=== PATIENT | male | born 1930 | race Caucasian/White ===

== ENCOUNTER 2016-11-26 15:39 | Emergency (ER) | payer MEDICARE, BC ==
[2016-11-26 16:48] LABS: APPEARANCE CLEAR (CLEAR); BILIRUBIN NEGATIVE (NEGATIVE); COLOR YELLOW (YELLOW); GLUCOSE NEGATIVE (NEGATIVE); KETONE NEGATIVE (NEGATIVE); LEUKOCYTE ESTERASE TRACE (NEGATIVE); NITRITE NEGATIVE (NEGATIVE); PROTEIN NEGATIVE (NEGATIVE); SPECIFIC GRAVITY 1.015 (1.005-1.020); UROBILINOGEN NORMAL (NORMAL)
[2016-11-26 16:49] LABS: BACTERIA FEW /hpf (NONE SEEN); EPITHELIAL CELLS 0-5 /hpf (0-5); MUCUS <1+ /lpf (NONE SEEN); WHITE CELLS - URINE 0-5 /hpf (0-5)
[2016-11-26 17:22] LABS: ALBUMIN 3.9 g/dL (3.4-5.0); ANION GAP 8.8 mmol/L (8-16); BILIRUBIN - TOTAL 0.47 mg/dL (0.2-1.3); CALCIUM 10.5 mg/dL (8.5-10.1); CARBON DIOXIDE 31.2 mmol/L (21.0-32.0); CREATININE - SERUM 1.1 mg/dL (0.6-1.3); PROTEIN - SERUM 7.2 g/dL (6.4-8.2)
[2016-11-26 21:16] LABS: APTT 56.8 SECONDS (22.8-39.4); INR 3.13 (0.85-1.17); PROTIME 32.5 SECONDS (11.6-15.0)
[2016-12-10 20:42] VITALS: BMI 23.1
== END 2016-11-26 21:31 | disposition home or self-care (01) ==
LOC: D.ER 15:39
PROVIDERS: Emergency Medicine; Physician Assistant Medical
DX: R60.0 Localized edema (principal); I48.91 Unspecified atrial fibrillation; I10 Essential (primary) hypertension; E78.5 Hyperlipidemia, unspecified

== ENCOUNTER 2016-12-10 12:35 | Inpatient (IN) | payer MEDICARE, BC ==
[~2016-12-10] VITALS: Ht 182.9 cm; Wt 77.3 kg
[2016-12-10 14:08] LABS: INR 3.34 (0.85-1.17); PROTIME 34.2 SECONDS (11.6-15.0)
--- NOTE | 2016-12-10 14:15 | NUR ---
ASSESSMENT PER FLOW SHEET.IV SITED TO LEFT FOREARM X1 STICK USING ASEPTIC TECH,20G. ORIENTATION TO ROOM.CALL LIGHT IN REACH
[2016-12-10] MEDS ORDERED: CELEXA20 MG PO (14:42)
[2016-12-10] MEDS ORDERED: METOPROLOL TART50 MG PO (14:42)
[2016-12-10] MEDS ORDERED: COUMADIN3 MG PO (14:44)
[2016-12-10] MEDS ORDERED: MYSOLINE250 MG PO (14:44)
[2016-12-10] MEDS ORDERED: ACCUPRIL40 MG PO (14:44)
[2016-12-10] MEDS ORDERED: HYDROCHLOROTHIA25 MG PO (14:45)
[2016-12-10] MEDS ORDERED: ADVIL200 MG PO (14:46)
[2016-12-10] MEDS ORDERED: ZOCOR80 MG (14:46)
[2016-12-10 16:58] VITALS: BP 146/73
--- NOTE | 2016-12-10 18:00 | NUR ---
REMAINS WITHOUT NEEDS,WITHOUT DISTRESS.CALL LIGHT IN REACH
--- NOTE | 2016-12-10 19:50 | NUR ---
PATIENT IN SEMI-FOWLERS POSITION WITH DAUGHTER AT BEDSIDE. PATIENT STATED HE DOES NOT NEED ANYTHING AT THIS TIME.
[2016-12-10 20:42] VITALS: BP 146/73; Ht 182.9 cm; Wt 77.3 kg
[2016-12-10 21:00] VITALS: BP 167/90
[2016-12-11 01:00] VITALS: BP 166/89
[2016-12-11 05:00] VITALS: BP 165/100
[2016-12-11 06:43] LABS: BASOPHILS 0.3 % (0.0-2.0); EOSINOPHILS 4.3 % (0-7); HEMATOCRIT 40.6 % (42.0-54.0); HEMOGLOBIN 13.7 g/dL (13.5-17.5); IMMATURE GRANULOCYTES 0.3 % (0-5); LYMPHOCYTES 17.2 % (15-50); MCH 32.2 pg (26.0-34.0); MCHC 33.7 g/dL (31.0-37.0); MCV 95.3 fL (80.0-100.0); MEAN PLATELET VOLUME 10.6 fL (7.4-10.4); MONOCYTES 7.7 % (2-11); NEUTROPHILS 70.2 % (40-80); PLATELET COUNT 205 10x3/uL (130-400); RBC 4.26 10x6/uL (4.20-6.10); RDW 13.2 % (11.5-14.5); WBC 7.5 10x3/uL (4.8-10.8)
[2016-12-11 06:57] LABS: INR 2.46 (0.85-1.17); PROTIME 26.8 SECONDS (11.6-15.0)
[2016-12-11 07:10] LABS: ANION GAP 11.6 mmol/L (8-16); CALCIUM 10.5 mg/dL (8.5-10.1); CARBON DIOXIDE 28.2 mmol/L (21.0-32.0); CREATININE - SERUM 1.1 mg/dL (0.6-1.3); POTASSIUM - SERUM 3.8 mmol/L (3.5-5.1)
--- NOTE | 2016-12-11 07:42 | NUR ---
PT ASSESSMENT COMPLETE AWAKE AND ALERT ORINETED X 3 LUNGS CLEAR BILATERAL. HRRR BSA X 4 QUADS ABD SOFT AND NON TENDER TO PALPATION MOVES ALL EXTREMITES TO COMMAND HAS HIRAL HOSE NOTED TO BILATERAL LOWER EXTREMITES. 3+ EDEMA NOTED TO LEFT ANKLE WITH CELLULITIS NOTED LEFT PIV NOTED TO FORARM 20 GA PATENT TO NS AT KVO RATE. WILL MONITOR.
[2016-12-11 08:43] VITALS: BP 169/102
--- NOTE | 2016-12-11 09:23 | NUR ---
Patient Name: ANGELES VASQUEZ Admission Status: Elective Accout number: [id number] Admission Date: 12-10-2016 : 1930 Admission Diagnosis: Attending: DANIELLE Current LOS: 1 Anticipated DC Date: 12-12-2016 Planned Disposition: Home or Self Care Primary Insurance: MEDICARE A & B Discharge Planning Comments: CM MET WITH PATIENT REGARDING D/C NEEDS AND PLANS. PATIENT STATES HIS DAUGHTER (HAMZAH) AND GRANDSON LIVE WITH HIM AND HIS (PRESTON). PATIENTS HAS DEMENTIA AND DAUGHTER HELPS WITH HER. PATIENT STATES THERE ARE 4 STEPS W/O RAILS TO ENTER HOME AND NO STAIRS INSIDE. PATIENT IS INDEPENDENT WITH HIS CARE AND HAS A CANE AND WALKER. PATIENTS PCP IS DR. LORENZO AND USES [facility]. PATIENT DENIES NEEDS FOR HOME HEALTH AT THIS TIME. CM WILL CONTINUE TO FOLLOW PATIENT WITH D/C NEEDS AND PLANS. PCP DR. LORENZO [facility] HAMZAH GUTIERREZ (DAUGHTER) [phone] Oyster Culler: Thi Dsouza Is the patient Alert and Oriented? Yes 0 * How many steps to enter\exit or inside your home? 4 NO RAILS 0 * PCP DR. LORENZO 0 * Pharmacy [facility] 0 * Preadmission Environment Home with Family 0 * ADLs Independent 0 * Equipment Cane Walker 0 * List name and contact numbers for known caregivers / representatives who currently or will assist patient after discharge: HAMZAH GUTIERREZ [phone] * Community resources currently utilized None 0 * Additional services required to return to the preadmission environment? Yes 0 * Can the patient safely return to the preadmission environment? Yes 0 * Has this patient been hospitalized within the prior 30 days at any hospital? No 0 Grand Total: 0
--- NOTE | 2016-12-11 12:40 | NUR ---
PATIENT ALERT IN MID [place] POSITION READING NEWSPAPER. NO SIGNS OF DISTRESS NOTED. SIDE RAILS UP X2. BED IN LOW POSITION. CALL LIGHT IN REACH.
[2016-12-11 13:36] VITALS: BP 157/90
--- NOTE | 2016-12-11 13:54 | NUR ---
NO ACUTE DISTRESS NOTED VOICES ALL NEEDS TO STAFF HIRAL HOSE IN PLACE
[2016-12-11 15:59] VITALS: BP 160/78
[2016-12-11 19:00] VITALS: BP 166/77
--- NOTE | 2016-12-11 19:50 | NUR ---
PATIENT IN SEMI-FOWERLS POSITION. DAUGHTER AT BEDSIDE. PATIENT STATED HE DOES NOT NEED ANYTHING AT THIS TIME.
[2016-12-12 04:00] VITALS: BP 145/86
[2016-12-12 05:14] LABS: BASOPHILS 0.4 % (0.0-2.0); EOSINOPHILS 4.6 % (0-7); HEMATOCRIT 36.4 % (42.0-54.0); HEMOGLOBIN 12.3 g/dL (13.5-17.5); IMMATURE GRANULOCYTES 0.2 % (0-5); LYMPHOCYTES 18.6 % (15-50); MCH 32.2 pg (26.0-34.0); MCHC 33.8 g/dL (31.0-37.0); MCV 95.3 fL (80.0-100.0); MONOCYTES 10.9 % (2-11); NEUTROPHILS 65.3 % (40-80); PLATELET COUNT 176 10x3/uL (130-400); RBC 3.82 10x6/uL (4.20-6.10); RDW 13.3 % (11.5-14.5); WBC 8.1 10x3/uL (4.8-10.8)
[2016-12-12 05:29] LABS: PROTIME 21.7 SECONDS (11.6-15.0)
[2016-12-12 05:31] LABS: INR 1.89 (0.85-1.17)
[2016-12-12 05:34] LABS: ANION GAP 11.9 mmol/L (8-16); CALCIUM 9.7 mg/dL (8.5-10.1); CARBON DIOXIDE 26.7 mmol/L (21.0-32.0); CREATININE - SERUM 1.1 mg/dL (0.6-1.3); POTASSIUM - SERUM 3.6 mmol/L (3.5-5.1)
[2016-12-12 08:24] VITALS: BP 123/87
[2016-12-12 12:43] VITALS: BP 138/85
[2016-12-12] MEDS ORDERED: COUMADIN3 MG PO (15:37)
[2016-12-12 19:00] VITALS: BP 177/90
--- NOTE | 2016-12-12 21:00 | NUR ---
AWAKE,ALERT,ORIENTED.SKIN WARM DRY RESP EVENA DN UNLAOBRED. ABD SOFT NONDISTENDED WITH BOWEL SOUNDS PRESENT.EDEMA NOTED TO LEFT ANKLE. HIRAL HOSE ON.REMOVED FOR SKIN ASSESSMENT. NO OPEN AREAS NOTED. PIV TO LEFT FOREARM IN TACT WIHT NO REDNESS OR EDEMA NOTED.
--- NOTE | 2016-12-13 02:10 | NUR ---
EYES CLOSED RESP EVEN AND UNLABORED.CL IN REACH.
[2016-12-13 04:00] VITALS: BP 163/86
[2016-12-13 05:28] LABS: BASOPHILS 0.4 % (0.0-2.0); EOSINOPHILS 5.5 % (0-7); HEMATOCRIT 37.1 % (42.0-54.0); HEMOGLOBIN 12.7 g/dL (13.5-17.5); IMMATURE GRANULOCYTES 0.1 % (0-5); LYMPHOCYTES 23.1 % (15-50); MCH 32.2 pg (26.0-34.0); MCHC 34.2 g/dL (31.0-37.0); MCV 93.9 fL (80.0-100.0); MEAN PLATELET VOLUME 10.8 fL (7.4-10.4); MONOCYTES 10.1 % (2-11); NEUTROPHILS 60.8 % (40-80); PLATELET COUNT 190 10x3/uL (130-400); RBC 3.95 10x6/uL (4.20-6.10); RDW 13.2 % (11.5-14.5); WBC 7.3 10x3/uL (4.8-10.8)
--- NOTE | 2016-12-13 05:45 | NUR ---
EYES CLOSED RESPIRATIONS WITH EASE AND UNLABORED. SR UP X2 CALL LIGHT WITHIN REACH.
[2016-12-13 05:59] LABS: PROTIME 17.8 SECONDS (11.6-15.0)
[2016-12-13 06:01] LABS: ANION GAP 10.4 mmol/L (8-16); CALCIUM 9.8 mg/dL (8.5-10.1); CARBON DIOXIDE 27.8 mmol/L (21.0-32.0); CREATININE - SERUM 1.2 mg/dL (0.6-1.3); INR 1.47 (0.85-1.17); POTASSIUM - SERUM 3.2 mmol/L (3.5-5.1)
--- NOTE | 2016-12-13 06:39 | NUR ---
NO CHANGE IN ASSESSMENT. CL IN REACH.
--- NOTE | 2016-12-13 07:00 | NUR ---
REPORT RECIEVED ASSUMED CARE. PATIENT IN BED WITH IV INTACT. NO COMPLAINTS. CALL LIGHT WITHIN REACH.
[2016-12-13 08:08] VITALS: BP 173/92
[2016-12-13 12:31] VITALS: BP 150/70
[2016-12-13 16:00] VITALS: BP 152/79
--- NOTE | 2016-12-13 17:45 | NUR ---
SPOKE WITH PASCUAL HORNER, DR. SCHUMACHER NURSE ABOUT PATIENT TAKING LOMOTIL FOR DIARRHEA. VERBALIZED UNDERSTANIND. CALL LIGHT WITHIN REACH.
--- NOTE | 2016-12-13 18:37 | NUR ---
PATIENT IN BED WITH IV INTACT. NO COMPLAINTS AT THIS TIME. CALL LIGHT WITHIN REACH.
--- NOTE | 2016-12-13 21:00 | NUR ---
AWAKE NO COMPLAINTS. IV INFUSING RO LEFT ARM WITHOUT REDNESS OR EDEMA. CL IN REACH.
--- NOTE | 2016-12-14 02:30 | NUR ---
EYES CLOSED RESP EVEN AND UNALBORED. NO DISTRESS NOTED. CL IN REACH.
--- NOTE | 2016-12-14 03:30 | NUR ---
PT RESTING QUIETLY, EYES CLOSED. RESP UNLABORED. NO DISTRESS NOTED. WILL CONTINUE TO MONITOR.
--- NOTE | 2016-12-14 05:30 | NUR ---
NO CHANGE IN ASSESSMENT. CL IN REACH.
[2016-12-14 06:45] LABS: BASOPHILS 0.4 % (0.0-2.0); EOSINOPHILS 6.1 % (0-7); HEMATOCRIT 38.9 % (42.0-54.0); HEMOGLOBIN 13.2 g/dL (13.5-17.5); IMMATURE GRANULOCYTES 0.3 % (0-5); LYMPHOCYTES 21.5 % (15-50); MCHC 33.9 g/dL (31.0-37.0); MCV 94.2 fL (80.0-100.0); MEAN PLATELET VOLUME 10.6 fL (7.4-10.4); MONOCYTES 8.4 % (2-11); NEUTROPHILS 63.3 % (40-80); PLATELET COUNT 211 10x3/uL (130-400); RBC 4.13 10x6/uL (4.20-6.10); RDW 13.2 % (11.5-14.5); WBC 7.6 10x3/uL (4.8-10.8)
[2016-12-14 07:09] LABS: INR 1.38 (0.85-1.17); PROTIME 16.9 SECONDS (11.6-15.0)
[2016-12-14 07:24] LABS: CALCIUM 10.3 mg/dL (8.5-10.1); CARBON DIOXIDE 26.3 mmol/L (21.0-32.0); CREATININE - SERUM 1.2 mg/dL (0.6-1.3); POTASSIUM - SERUM 3.3 mmol/L (3.5-5.1)
--- NOTE | 2016-12-14 07:50 | NUR ---
REPORT RECIEVED ASSUMED CARE. PATIENT IN BED WITH IV INTACT. NO COMPLAINTS. CALL LIGHT WITHIN REACH.
[2016-12-14 08:04] VITALS: BP 179/88
[2016-12-14 12:35] VITALS: BP 165/84
[2016-12-14 15:53] VITALS: BP 135/77
--- NOTE | 2016-12-14 18:55 | NUR ---
PATIENT IN BED WITH NO COMPLAINTS. IV INTACT. CALL LIGHT WITHIN REACH.
--- NOTE | 2016-12-14 19:55 | NUR ---
PATIENT IN SEMI-FOWLERS POSITION. PATIENT STATED HE DOES NOT NEED ANYTHING AT THIS TIME.
[2016-12-14 20:20] VITALS: BP 125/67
[2016-12-15 00:36] VITALS: BP 153/93
[2016-12-15 04:34] VITALS: BP 169/98
[2016-12-15 05:48] LABS: BASOPHILS 0.5 % (0.0-2.0); EOSINOPHILS 7.5 % (0-7); HEMATOCRIT 37.3 % (42.0-54.0); HEMOGLOBIN 12.4 g/dL (13.5-17.5); IMMATURE GRANULOCYTES 0.3 % (0-5); LYMPHOCYTES 28.4 % (15-50); MCH 31.6 pg (26.0-34.0); MCHC 33.2 g/dL (31.0-37.0); MCV 94.9 fL (80.0-100.0); MEAN PLATELET VOLUME 10.6 fL (7.4-10.4); NEUTROPHILS 52.3 % (40-80); PLATELET COUNT 200 10x3/uL (130-400); RBC 3.93 10x6/uL (4.20-6.10); RDW 13.4 % (11.5-14.5); WBC 6.1 10x3/uL (4.8-10.8)
[2016-12-15 06:01] LABS: INR 1.44 (0.85-1.17); PROTIME 17.4 SECONDS (11.6-15.0)
[2016-12-15 06:13] LABS: ANION GAP 10.8 mmol/L (8-16); CALCIUM 10.1 mg/dL (8.5-10.1); CARBON DIOXIDE 28.6 mmol/L (21.0-32.0); CREATININE - SERUM 1.3 mg/dL (0.6-1.3); POTASSIUM - SERUM 3.4 mmol/L (3.5-5.1)
--- NOTE | 2016-12-15 08:00 | NUR ---
PT ASSESSMENT COMPLETE AWAKE AND ALERT ORINETD X 3 LUNGS CLAER BILAT. EXPECTING TO BE DISCHARGED TODAY TO HOME PER SELF CARE NO ACUTE DISTRESS NOTED AMBULATES WELL INDEPENDANT STEADY GAIT NOTED IN ROOM. PIV PATENT TO NS PER ORDER.
--- NOTE | 2016-12-15 08:00 | NUR ---
PT WITHOUT NEEDS,WITHOUT DISTRESS.ISOLATIONMAINTAINED
[2016-12-15 09:30] VITALS: BP 146/83
[2016-12-15] MEDS ORDERED: CLEOCIN HCL300 MG PO (09:31)
--- NOTE | 2016-12-15 11:33 | NUR ---
TOO AM MEDS WITH NO DIFFICULTY NOTED. DISCHARGE ORDER IN FOR HOME CARE WILL DISCHARGE PER ORDER
[2016-12-15 12:42] VITALS: BP 148/86
--- NOTE | 2016-12-15 13:30 | NUR ---
GIVEN DISCHARGE INSTRUCTIONS STATED UNDERSTANDING AND REPEATED INSTRUCTION BACK PT IV D/C TIP INTACT
--- NOTE | 2016-12-15 14:56 | NUR ---
PT DISCHARGED PER WHEELCHAIR WITH DAUGHTER AT THIS TIME.
== END 2016-12-15 14:57 | disposition home or self-care (01) | DRG 603 ==
LOC: D.MS 12:35 → D.SDCHOLD 15:35 → D.MS 15:35
PROVIDERS: ADMIT Family Medicine
DX: L03.116 Cellulitis of left lower limb (principal); I10 Essential (primary) hypertension; I48.91 Unspecified atrial fibrillation

== ENCOUNTER 2018-06-18 11:00 | Emergency (ER) | payer MEDICARE, BC ==
[2016-12-10 20:42] VITALS: Ht 185.4 cm; Wt 66.4 kg
[~2018-06-18] VITALS: Ht 185.4 cm; Wt 66.4 kg
[~2018-06-18 11:00] MED LIST: ACCUPRIL40 MG PO; ADVIL200 MG PO; CELEXA20 MG PO; CLEOCIN HCL300 MG PO; COUMADIN3 MG PO; HYDROCHLOROTHIA25 MG PO; METOPROLOL TART50 MG PO; MYSOLINE250 MG PO; ZOCOR80 MG
[2018-06-18 11:43] LABS: BASOPHILS 0.2 % (0-2); EOSINOPHILS 2.5 % (0-7); HEMATOCRIT 40.4 % (42.0-54.0); HEMOGLOBIN 13.8 g/dL (13.5-17.5); IMMATURE GRANULOCYTES 0.2 % (0-5); LYMPHOCYTES 19.8 % (15-50); MCH 32.9 pg (26.0-34.0); MCHC 34.2 g/dL (31.0-37.0); MCV 96.4 fL (80.0-100.0); MEAN PLATELET VOLUME 10.9 fL (7.4-10.4); NEUTROPHILS 71.3 % (40-80); PLATELET COUNT 150 10x3/uL (130-400); RBC 4.19 10x6/uL (4.20-6.10); RDW 13.2 % (11.5-14.5); WBC 6.5 10x3/uL (4.8-10.8)
[2018-06-18 12:01] LABS: INR 2.2 (0.85-1.17); PROTIME 23.8 SECONDS (11.6-15.0)
[2018-06-18 12:02] LABS: APTT 36.1 SECONDS (22.8-39.4)
[2018-06-18 12:05] LABS: ALBUMIN 3.6 g/dL (3.4-5.0); ALKALINE PHOSPHATASE 104 U/L (46-116); ALT (SGPT) 27 U/L (10-68); BILIRUBIN - TOTAL 0.64 mg/dL (0.2-1.3); CALC OSMOLALITY 288 mosm/kg (275-300); CALCIUM 10.2 mg/dL (8.5-10.1); CARBON DIOXIDE 31.5 mmol/L (21.0-32.0); CHLORIDE - SERUM 107 mmol/L (98-107); CREATININE - SERUM 0.9 mg/dL (0.6-1.3); GLUCOSE 120 mg/dL (74-106); POTASSIUM - SERUM 3.9 mmol/L (3.5-5.1); SODIUM 142 mmol/L (136-145); UREA NITROGEN 26 mg/dL (7-18); eGFR NON AFRICAN AMERICAN 84 mL/min (90-120)
[2018-06-18 12:13] LABS: CKMB 2.3 U/L (0.0-3.6); CREATINE KINASE 75 UL (21-232); MAGNESIUM - SERUM 2.1 mg/dL (1.8-2.4); PRO BNP 2390 pg/mL (0-450)
[2018-06-18 12:19] LABS: TROPONIN-I < 0.017 ng/mL (0.000-0.060)
[2018-06-18 15:23] VITALS: BP 174/92
== END 2018-06-18 15:26 | disposition home or self-care (01) ==
LOC: D.ER 11:00
PROVIDERS: Family Medicine
DX: J81.1 Chronic pulmonary edema (principal); R06.02 Shortness of breath; I10 Essential (primary) hypertension; Z85.828 Personal history of other malignant neoplasm of skin

== ENCOUNTER → 2019-01-20 15:58 | Outpatient (CLI) | payer MEDICARE, BC ==
[2018-06-18 11:04] VITALS: BMI 19.3
== END | disposition home or self-care (01) ==
LOC: D.CT 15:30
PROVIDERS: ATTEND Family Medicine
DX: S00.93XA Contusion of unspecified part of head, initial encounter (principal); W18.30XA Fall on same level, unspecified, initial encounter; I48.91 Unspecified atrial fibrillation; Z79.01 Long term (current) use of anticoagulants; R41.0 Disorientation, unspecified

== ENCOUNTER → 2019-02-26 18:23 | Outpatient (CLI) | payer MEDICARE, BC ==
[2018-06-18 11:04] VITALS: BMI 19.3
[2019-02-26 20:03] LABS: CALC OSMOLALITY 289 mosm/kg (275-300); CALCIUM 9.6 mg/dL (8.5-10.1); CARBON DIOXIDE 25.8 mmol/L (21.0-32.0); CHLORIDE - SERUM 106 mmol/L (98-107); DIGOXIN 0.93 ng/mL (0.90-2.00); GLUCOSE 101 mg/dL (74-106); POTASSIUM - SERUM 4.4 mmol/L (3.5-5.1); SODIUM 139 mmol/L (136-145); T4 THYROXIN - FREE 0.99 ng/dL (0.76-1.46); THYROID STIMULATING HORMONE 3.66 uIU/mL (0.36-3.74); UREA NITROGEN 46 mg/dL (7-18); eGFR NON AFRICAN AMERICAN 75 mL/min (90-120)
== END | disposition home or self-care (01) ==
LOC: D.LABREF 18:23
PROVIDERS: ATTEND Family Medicine
DX: I48.91 Unspecified atrial fibrillation (principal); R29.6 Repeated falls; G25.0 Essential tremor; I10 Essential (primary) hypertension

== ENCOUNTER 2019-04-15 11:03 | Inpatient (IN) | payer MEDICARE, BC ==
[2019-04-15] VITALS (18 sets, daily range): BP systolic 125–178; BP diastolic 41–67; BMI 16.9
[~2019-04-15 11:03] MED LIST changes: +COUMADIN1 MG PO
[2019-04-15] MEDS ORDERED: VITAMIN B-121000 MCG PO (11:06)
[2019-04-15] MEDS ORDERED: LANOXIN125 MCG PO (11:07)
[2019-04-15] MEDS ORDERED: ACCUPRIL40 MG PO (11:08)
[2019-04-15 11:32] LABS: HEMATOCRIT 34.6 % (42.0-54.0); LYMPHOCYTES 20.5 % (15-50); MCHC 34.7 g/dL (31.0-37.0); MCV 95.1 fL (80.0-100.0); MEAN PLATELET VOLUME 10.9 fL (7.4-10.4); NEUTROPHILS 67.8 % (40-80); RBC 3.64 10x6/uL (4.20-6.10); RDW 14.5 % (11.5-14.5)
[2019-04-15 11:34] LABS: PLATELET COUNT 185 10x3/uL (130-400)
[2019-04-15 11:46] LABS: APTT 42.2 SECONDS (22.8-39.4); INR 2.8 (0.85-1.17); PROTIME 28.8 SECONDS (11.6-15.0)
[2019-04-15 11:55] LABS: ANION GAP 10.7 mmol/L (8-16); BILIRUBIN - TOTAL 0.34 mg/dL (0.2-1.3); CALCIUM 10.2 mg/dL (8.5-10.1); CARBON DIOXIDE 28.7 mmol/L (21.0-32.0); CREATININE - SERUM 1.1 mg/dL (0.6-1.3); POTASSIUM - SERUM 3.4 mmol/L (3.5-5.1); PROTEIN - SERUM 6.2 g/dL (6.4-8.2); THYROID STIMULATING HORMONE 4.44 uIU/mL (0.36-3.74); TROPONIN-I 0.032 ng/mL (0.000-0.060)
[2019-04-15 13:09] LABS: APPEARANCE CLEAR (CLEAR); BACTERIA FEW /hpf (NONE SEEN); BILIRUBIN NEGATIVE (NEGATIVE); COLOR YELLOW (YELLOW); EPITHELIAL CELLS 0-5 /hpf (0-5); GLUCOSE NEGATIVE (NEGATIVE); KETONE NEGATIVE (NEGATIVE); MUCUS <1+ /lpf (NONE SEEN); NITRITE NEGATIVE (NEGATIVE); PROTEIN NEGATIVE (NEGATIVE); RED CELLS - URINE OCC /hpf (0-5); SPECIFIC GRAVITY 1.025 (1.005-1.020); UROBILINOGEN NORMAL (NORMAL); WHITE CELLS - URINE RARE /hpf (0-5)
--- NOTE | 2019-04-15 14:59 | NUR ---
REC'D PT TO CV5. HR IRREGULAR AND BRADYCARDIA. HR 35, BP 152/75. PT WITH PERIODS OF APNEA. ABG'S DONE. ABG RESULTS WNL. PAGED DR ACEVEDO.
--- NOTE | 2019-04-15 17:49 | NUR ---
DR ACEVEDO DID ROUND. NO PM PLANNED. DIG AND SINGH HELD.
--- NOTE | 2019-04-15 18:32 | NUR ---
BED ALARM SOUNDING. PT ATTEMPTS TO GET OOB. PT STATES THAT HE NEEDS TO URINATE. TRANSFERED TO [facility] [place] [facility] PERSON ASST. PT INC OF URINE ON LINENS SM AMT. VOIDS 50CC. KCL RIDERS PER ORDERED ELECTROLYTE PROTOCOL USED.
--- NOTE | 2019-04-15 19:12 | NUR ---
patient arrived via [facility] secondary to c/o fall at approx 0200 this morning. pt presents with internal rotation of left foot and slight protrusion of left hip. Pt has had a left hip replacement. Pt was given morphine prior to arrival to ED. He is supported by 2L NC and is intermittantly tachypneic. He is able to report his name and - he denies pain but moans with manipulation. Daughter arrives to ED and is pt primary caregiver.
--- NOTE | 2019-04-15 20:30 | NUR ---
PT IS AWAKE AND ALERT. HE IS ALSO ARGUMENTATIVE AND WANTING TO GET OOB. HIS DAUGHTER IS AT BEDSIDE ARGUING WITH HIM. NURSE IS SUGGESTING THAT SHE GO HOME AND LET HIM REST.
--- NOTE | 2019-04-15 21:45 | NUR ---
PT IS RESTING QUIETLY. NO SIGN OF DISTRESS. HR CONTINUES TO DROP INTO LOW THIRTYS. HYPERTENSIVE.
--- NOTE | 2019-04-15 23:00 | NUR ---
REASSESSMENT COMPLETED PER FLOWSHEETS, PT RESTING AT THIS TIME. NO ACUTE CHANGES IN PT'S STATUS NOTED. HR CONT FELIZ TO 30 NOT SUSTAINED. NO NEEDS VOICES AT THIS TIME. CONT TO MONITOR.
[2019-04-16] VITALS (20 sets, daily range): BP systolic 109–179; BP diastolic 45–73; BMI 16.8
--- NOTE | 2019-04-16 03:15 | NUR ---
REASSESSMENT COMPLETEED PER FLOWSHEET. PT AWAKE,PULLED ALL MACHINERY MOVER LEADS OFF, TRYING TO GET OOB, PT INCONTINENT OF URINE. ARNOLDO CARE PROVIDED. SKIN CARE DONE. LINEN AND GOWN CHANGED. REPOSITIONED FOR COMFORT. HOB UP. SIDE RAILS UP. BED ALARM ON. CALL LIGHT IN REACH. CPOC.
[2019-04-16 04:07] LABS: BASOPHILS 0.3 % (0-2); EOSINOPHILS 4.1 % (0-7); HEMATOCRIT 35.6 % (42.0-54.0); HEMOGLOBIN 11.9 g/dL (13.5-17.5); IMMATURE GRANULOCYTES 0.3 % (0-5); MCH 31.5 pg (26.0-34.0); MCHC 33.4 g/dL (31.0-37.0); MCV 94.2 fL (80.0-100.0); MEAN PLATELET VOLUME 11.3 fL (7.4-10.4); MONOCYTES 10.1 % (2-11); NEUTROPHILS 62.2 % (40-80); PLATELET COUNT 167 10x3/uL (130-400); RBC 3.78 10x6/uL (4.20-6.10); RDW 14.4 % (11.5-14.5); WBC 6.5 10x3/uL (4.8-10.8)
[2019-04-16 04:16] LABS: INR 2.44 (0.85-1.17); PROTIME 25.8 SECONDS (11.6-15.0)
[2019-04-16 04:36] LABS: ALBUMIN 2.9 g/dL (3.4-5.0); ALKALINE PHOSPHATASE 82 U/L (46-116); ALT (SGPT) 19 U/L (10-68); BILIRUBIN - TOTAL 0.57 mg/dL (0.2-1.3); CALC OSMOLALITY 294 mosm/kg (275-300); CALCIUM 10.3 mg/dL (8.5-10.1); CHLORIDE - SERUM 109 mmol/L (98-107); GLUCOSE 100 mg/dL (74-106); PROTEIN - SERUM 6.3 g/dL (6.4-8.2); SODIUM 143 mmol/L (136-145); UREA NITROGEN 40 mg/dL (7-18)
[2019-04-16 04:37] LABS: CREATININE - SERUM 0.8 mg/dL (0.6-1.3); POTASSIUM - SERUM 4.4 mmol/L (3.5-5.1); eGFR NON AFRICAN AMERICAN > 90 mL/min (90-120)
--- NOTE | 2019-04-16 07:20 | NUR ---
SHIFT REPORT RECEIVED. PT ATTEMPTING TO GET OUT OF BED. ON ROOM AIR. HAS PIV ON L-FOREARM S.L. HR IRREGULAR. PULLED UP AND REPOSITIONED FOR COMFORT. WARM BLANKETS PROVIDED. ASSESSMENT COMPLETED. WILL CONTINUE TO MONITOR.
--- NOTE | 2019-04-16 09:20 | NUR ---
AM MEDS GIVEN WITHOUT COMPLICATIONS. ASSISTED PT WITH MEAL. ATE JELLO AND HAD MOST OF HIS BROTH. PULLED UP AND REPOSITIONED FOR COMFORT. WILL CONTINUE TO MONITOR.
--- NOTE | 2019-04-16 11:45 | NUR ---
RE-ASSESSMENT COMPLETED. PT MOVING AROUND IN BED. TRYING TO GET UP. CALM AND COOPERATIVE WITH NURSE. INCONTINENT EPISODE OF URINE. PERICARE AND PARTIAL LINEN CHANGE PROVIDED AT THIS TIME. PULLED UP AND REPOSITIONED FOR COMFORT. ATE ABOUT HALF OF JELLO AND HAS A FEW SIPS OF TEA AND BROTH. NO FURTHER NEEDS AT THIS TIME. WILL CONTINUE TO MONITOR.
--- NOTE | 2019-04-16 12:43 | NUR ---
REPORT RECIEVED, PT ALERT, CONFUSED, CONTINUALLY ATTEMPTING TO CLIMB OUT OF BED, ASSISTED TO CHAIR AND PORTABLE TEACHER [employer] APPLIED, CURRENTLY SITTING WITH MYSELF FOR MONITORING
--- NOTE | 2019-04-16 14:27 | NUR ---
PT TO CT, OKAYED WITH DR LORENZO FOR PT TO BE UP IN CHAIR
--- NOTE | 2019-04-16 14:50 | NUR ---
PT BACK FROM CT
--- NOTE | 2019-04-16 16:54 | NUR ---
1600 ASSISTED TO BED PER REQUEST 1630 PT BED ALARMING, PT CLIMBING OUT OF BED STATED "I HATE BEING IN BED" ASSISTED WITH DINNER
--- NOTE | 2019-04-16 19:00 | NUR ---
ASSESSMENT COMPLETED. SEE FLOWSHEET FOR ALL FINDINGS.PT CONFUSED AND ALERT TO NAME, FOLLOWS COMMANDS, SITTING IN RECLAINER CHAIR CLOSE WITH NURSING STATION. DENIES ANY DISCOMFORT AT THIS TIME. HR TO 38 ON VISE HAND. WILL CONT TO MONITOR.
[2019-04-17] VITALS (10 sets, daily range): BP systolic 125–164; BP diastolic 37–57
--- NOTE | 2019-04-17 01:00 | NUR ---
PT RESTING QUIETLY AT THIS TIME. NO NEEDS VOICES. CPOC.
--- NOTE | 2019-04-17 03:00 | NUR ---
REASSESSMENT COMPLETED PER FLOWSHEETS. PT RESTING QUIETLY AT THIS TIME, NO ACUTE CHANGES NOTED ON PT'S STATUS. CONT AFIB ON CM WITH HR AT 42BPM. CONT TO MONITOR.
[2019-04-17 05:20] LABS: BASOPHILS 0.4 % (0-2); EOSINOPHILS 5.3 % (0-7); HEMATOCRIT 30.8 % (42.0-54.0); HEMOGLOBIN 10.4 g/dL (13.5-17.5); IMMATURE GRANULOCYTES 0.4 % (0-5); LYMPHOCYTES 21.2 % (15-50); MCH 31.8 pg (26.0-34.0); MCHC 33.8 g/dL (31.0-37.0); MCV 94.2 fL (80.0-100.0); MEAN PLATELET VOLUME 11.8 fL (7.4-10.4); MONOCYTES 11.9 % (2-11); NEUTROPHILS 60.8 % (40-80); PLATELET COUNT 173 10x3/uL (130-400); RBC 3.27 10x6/uL (4.20-6.10); RDW 14.3 % (11.5-14.5); WBC 5.1 10x3/uL (4.8-10.8)
[2019-04-17 05:26] LABS: INR 2.89 (0.85-1.17); PROTIME 29.5 SECONDS (11.6-15.0)
[2019-04-17 05:41] LABS: ALBUMIN 2.6 g/dL (3.4-5.0); ALKALINE PHOSPHATASE 78 U/L (46-116); ALT (SGPT) 18 U/L (10-68); BILIRUBIN - TOTAL 0.46 mg/dL (0.2-1.3); CALC OSMOLALITY 296 mosm/kg (275-300); CALCIUM 9.7 mg/dL (8.5-10.1); CARBON DIOXIDE 31.8 mmol/L (21.0-32.0); CHLORIDE - SERUM 109 mmol/L (98-107); CREATININE - SERUM 0.9 mg/dL (0.6-1.3); GLUCOSE 91 mg/dL (74-106); PROTEIN - SERUM 5.6 g/dL (6.4-8.2); SODIUM 144 mmol/L (136-145); UREA NITROGEN 41 mg/dL (7-18); eGFR NON AFRICAN AMERICAN 84 mL/min (90-120)
[2019-04-17 05:42] LABS: POTASSIUM - SERUM 3.6 mmol/L (3.5-5.1)
--- NOTE | 2019-04-17 07:00 | NUR ---
SLEEPING WITH NO SIGN OF DISTRESS, AROUSABLE TO VERBAL STIMULI, CONFUSED, DENIES PAIN, BED ALARM IN USE, ASSESSMENT COMPLETED PER FLOWSHEET
--- NOTE | 2019-04-17 09:00 | NUR ---
SPEECH THERAPIST AT BEDSIDE, FOR SWALLOW EVAL, DIET SUGGESTED MECHANICAL SOFT WITH THIN LIQUIDS, MORNING MEDS CRUSHED AND GIVEN WITH APPLE SAUCE
--- NOTE | 2019-04-17 10:10 | NUR ---
BED ALARM GOING OF, LEGS OVER SIDE OF BED, OOB TO CHAIR WITH PERSONNEL ASSIST X2,
--- NOTE | 2019-04-17 13:00 | NUR ---
CHG BATH GIVEN TODAY, TOLERATED WITHOUT DIFFICUTY, UP IN CHAIR, LINEN CHANGE COMPLETED
--- NOTE | 2019-04-17 22:07 | NUR ---
1900 REPORT RECEIVED PT SLEEPING AT NURSES STATION. NO SIGNS OF ACUTE DISTRESS NOTED. 2200 PT TRYING TO GET OUT OF CHAIR. HELPED TO AMBULATE TO BATHROOM. VOID NOTED. ASSESSMENT DONE SEE FLOW SHEET.
--- NOTE | 2019-04-17 23:00 | NUR ---
PT RESTING IN BED VSS NO SIGNS OF ACUTE DISTRESS NOTED WILL CONTINUE TO MONITOR.
[2019-04-18] VITALS: BP 140/41
--- NOTE | 2019-04-18 03:00 | NUR ---
0100 PT AMBULATED TO BATHROOM MAXIMAL ASSITANCE PROVIDED. VSS. 0300 PT LAYING IN BED RESTING VSS WILL CONTINUE TO MONITOR.
--- NOTE | 2019-04-18 05:00 | NUR ---
PT UP TO CHAIR. PT AT NURSES STATION FOR SAFETY. NO SIGNS OF ACUTE DISTRESS NOTED.
[2019-04-18 05:54] LABS: BASOPHILS 0.3 % (0-2); EOSINOPHILS 5.3 % (0-7); HEMOGLOBIN 12.3 g/dL (13.5-17.5); IMMATURE GRANULOCYTES 0.3 % (0-5); LYMPHOCYTES 21.2 % (15-50); MCH 32.3 pg (26.0-34.0); MCHC 34.2 g/dL (31.0-37.0); MCV 94.5 fL (80.0-100.0); MEAN PLATELET VOLUME 11.7 fL (7.4-10.4); MONOCYTES 7.6 % (2-11); NEUTROPHILS 65.3 % (40-80); PLATELET COUNT 186 10x3/uL (130-400); RBC 3.81 10x6/uL (4.20-6.10); RDW 14.5 % (11.5-14.5)
[2019-04-18 05:55] LABS: WBC 6.4 10x3/uL (4.8-10.8)
[2019-04-18 06:10] LABS: ALBUMIN 3.1 g/dL (3.4-5.0); ALKALINE PHOSPHATASE 92 U/L (46-116); ALT (SGPT) 18 U/L (10-68); BILIRUBIN - TOTAL 0.52 mg/dL (0.2-1.3); CALC OSMOLALITY 291 mosm/kg (275-300); CALCIUM 10.3 mg/dL (8.5-10.1); CARBON DIOXIDE 30.2 mmol/L (21.0-32.0); CHLORIDE - SERUM 105 mmol/L (98-107); CREATININE - SERUM 0.8 mg/dL (0.6-1.3); GLUCOSE 134 mg/dL (74-106); POTASSIUM - SERUM 3.8 mmol/L (3.5-5.1); PROTEIN - SERUM 6.7 g/dL (6.4-8.2); SODIUM 141 mmol/L (136-145); UREA NITROGEN 38 mg/dL (7-18); eGFR NON AFRICAN AMERICAN > 90 mL/min (90-120)
[2019-04-18 06:11] LABS: INR 2.24 (0.85-1.17)
[2019-04-18 07:00] VITALS: BP 161/61
[2019-04-18 11:00] VITALS: BP 123/40
[2019-04-18 15:00] VITALS: BP 116/51
[2019-04-18 16:00] VITALS: BP 154/85
--- NOTE | 2019-04-18 18:41 | MORECARE ---
CASE MANAGEMENT DISCHARGE SUMMARY PATIENT: ANGELES VASQUZE UNIT: [id number] ADM DATE: 04/15/19 AGE: 88 : 29 SEX: M ROOM/BED: [facility] AUTHOR: DILIA HAMMONDS PHYSICIAN: REFERRING PHYSICIAN: LEBRON LORENZO MD DATE OF SERVICE: 04/18/19 Discharge Plan Patient Name: ANGELES VASQUEZ Facility: [facility]:[place] : 1930 Planned Disposition: Home with Home Health Anticipated Discharge Date: Discharge Date: Expected LOS: Initial Reviewer: [email or web address] Initial Review Date: 04/18/2019 Generated: 04/18/19 7:41 pm Patient Name: ANGELES VASQUEZ Page [id number] at 1841 All edits/amendments must be made on the electronic document DICTATION DATE: 04/18/191840 VEHICLE OPERATOR TECHNICIAN: NIGEL 04/18/191840 RPT#: [id number] DC DATE: STATUS: ADM IN [facility] [address] [place] [address] END OF REPORT
--- NOTE | 2019-04-18 18:48 | MORECARE ---
CASE MANAGEMENT DISCHARGE SUMMARY PATIENT: ANGELES VASQUEZ UNIT: [id number] ADM DATE: 04/15/19 AGE: 88 : 29 SEX: M ROOM/BED: [facility] AUTHOR: DILIA HAMMONDS PHYSICIAN: REFERRING PHYSICIAN: LEBRON LORENZO MD DATE OF SERVICE: 04/18/19 Discharge Plan Patient Name: ANGELES VASQUEZ Facility: [facility]:[place] : 1930 Planned Disposition: Home with Home Health Anticipated Discharge Date: Discharge Date: Expected LOS: Initial Reviewer: [email or web address] Initial Review Date: 04/18/2019 Generated: 04/18/19 7:48 pm DCPIA - Discharge Planning Initial Assessment Updated by [email or web address]: Kristie Burgess on 04/18/19 6:44 pm * Is the patient Alert and Oriented? No * How many steps to enter\exit or inside your home? Five steps * PCP DR Lorenzo * Pharmacy [facility] * Preadmission Environment Home with Family * ADLs Partial Dependent * Partial ADLs (Assistance needed) Bathing Dressing Medication Management * Equipment Cane Walker * Other Equipment As per dtr the patient only has cane and walker * List name and contact numbers for known caregivers / representatives who currently or will assist patient after discharge: Jocy Ervin- dtr- [phone] * Verbal permission to speak to the caregivers and representatives has been obtained from the patient. N/A * Community resources currently utilized Home Health * Please name any agencies selected above. [facility]- to verify * Additional services required to return to the preadmission environment? Yes * Can the patient safely return to the preadmission environment? Yes * Has this patient been hospitalized within the prior 30 days at any hospital? No Last DP export: 04/18/19 5:41 p Patient Name: ANGELES VASQUEZ Page 43042 at 9724 All edits/amendments must be made on the electronic document DICTATION DATE: 04/18/191846 PERSONAL PROPERTY ASSESSOR: NIGEL 04/18/191846 RPT#: [id number] DC DATE: STATUS: ADM IN [facility] [address] [facility] [place] [address] END OF REPORT
--- NOTE | 2019-04-18 19:00 | NUR ---
REPORT RECEIVED CARE ASSUMED ASSESSMENT DONE SEE FLOW SHEET VSS PT SITTING UP IN CHAIR WILL CONTINUE TO MONITOR.
--- NOTE | 2019-04-18 19:06 | MORECARE ---
CASE MANAGEMENT DISCHARGE SUMMARY PATIENT: ANGELES VASQUEZ UNIT: [id number] ADM DATE: 04/15/19 AGE: 88 : 29 SEX: M ROOM/BED: [facility] AUTHOR: CASSIUS,DOC PHYSICIAN: REFERRING PHYSICIAN: LEBRON LORENZO MD DATE OF SERVICE: 04/18/19 Discharge Plan Patient Name: ANGELES VASQUEZ Facility: [facility]:[place] : 1930 Planned Disposition: Home with Home Health Anticipated Discharge Date: Discharge Date: Expected LOS: Initial Reviewer: [email or web address] Initial Review Date: 04/18/2019 Generated: 04/18/19 8:06 pm Comments DCP- Discharge Planning Updated by [email or web address]: Kristie Burgess on 04/18/19 6:[address] Late Entry 1422 The primary nurse states the patient is confused. Nursing documentation states he is confused. CM received a discharge planning consult. DR Lorenzo spoke with the CM. He stated the patient's daughter is his caregiver. He had stated the home health had declined to continue service because of dtr's behavior. The daughter states the patient has custodial care w/[facility]. CM will verify w/ [facility] in the AM. Patient stated he stayed with his and grandson. He has been 68 years. The daughter states the has dementia and she takes care of them both. The grandson, Steve, is 28 years old and does live with his mother and grandparents in the grandparent's home. There are 5 stairs to enter the front door of the house. patient requires the assist of one and his to enter. The daughter laughed during the discussion regarding the patient's care and needs,. She states her father is angry with her sending him to the hospital. She states her parents does not want strangers in their home. She says their waterbed broke recently and she had to take care of cleaning everything up. I ask if the house was safe . She stated yes. She states her father is very stubborn and set in his ways. She states she has taken over his medication administration. 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 She says he is confused but " I can manage if he learns to cooperate". CM will follow to assist w/ discharge. Will verify if home health is current. The primary states [facility]PS has been contacted in the past. Will check to see if [facility]PS still follows. DCPIA - Discharge Planning Initial Assessment Updated by [email or web address]: Kristie Burgess on 04/18/19 6:44 pm * Is the patient Alert and Oriented? No * How many steps to enter\\exit or inside your home? Five steps * PCP DR Lorenzo * Pharmacy [facility] * Preadmission Environment Home with Family * ADLs Partial Dependent * Partial ADLs (Assistance needed) Bathing Dressing Medication Management * Equipment Cane Walker * Other Equipment As per dtr the patient only has cane and walker * List name and contact numbers for known caregivers / representatives who currently or will assist patient after discharge: Jocy Ervin- dtr- [phone] * Verbal permission to speak to the caregivers and representatives has been obtained from the patient. N/A * Community resources currently utilized Home Health * Please name any agencies selected above. [facility]- to verify * Additional services required to return to the preadmission environment? Yes * Can the patient safely return to the preadmission environment? Yes * Has this patient been hospitalized within the prior 30 days at any hospital? No Last DP export: 04/18/19 5:48 p Patient Name: ANGELES VASQUEZ Page [id number] at 1906 All edits/amendments must be made on the electronic document DICTATION DATE: 04/18/191905 DIRECTOR BIOLOGICS: NIGEL 04/18/191905 RPT#: [id number] DC DATE: STATUS: ADM IN [facility] [address] [place] [address] END OF REPORT
[2019-04-18 20:56] VITALS: BP 118/43
--- NOTE | 2019-04-18 23:00 | NUR ---
2100 MEDS GIVEN PER MAR. CHLOROHEX BATH GIVEN PARTIAL LINEN CHANGE PROVIDED. PT HAD EPISODE OF INCONTINCE WILL CONTINUE TO MONITOR. 2300 PT IN BED RESTING NO SIGNS OF ACUTE DISTRESS NOTED WILL CONTINUE TO MONITOR.
[2019-04-19 01:00] VITALS: BP 124/47
--- NOTE | 2019-04-19 01:00 | NUR ---
PT IN BED RESTING NO SIGNS OF ACUTE DISTRESS NOTED WILL CONTINUE TO MONITOR.
--- NOTE | 2019-04-19 03:00 | NUR ---
PT RESTING IN BED VSS NO SIGNS OF ACUTE DISTRESS NOTED WILL CONTINUE TO MONITOR.
[2019-04-19 03:29] VITALS: BP 162/62
--- NOTE | 2019-04-19 04:52 | NUR ---
PT IN BED RESTING VSS NO SIGNS OF ACUTE DISTRESS NOTED WILL CONTINUE TO MONITOR.
[2019-04-19 05:44] LABS: BASOPHILS 0.3 % (0-2); EOSINOPHILS 4.1 % (0-7); HEMATOCRIT 35.8 % (42.0-54.0); HEMOGLOBIN 12.2 g/dL (13.5-17.5); IMMATURE GRANULOCYTES 0.3 % (0-5); MCH 32.2 pg (26.0-34.0); MCHC 34.1 g/dL (31.0-37.0); MCV 94.5 fL (80.0-100.0); MEAN PLATELET VOLUME 11.8 fL (7.4-10.4); MONOCYTES 8.8 % (2-11); NEUTROPHILS 60.5 % (40-80); PLATELET COUNT 191 10x3/uL (130-400); RBC 3.79 10x6/uL (4.20-6.10); RDW 14.6 % (11.5-14.5); WBC 6.6 10x3/uL (4.8-10.8)
[2019-04-19 05:54] LABS: ALKALINE PHOSPHATASE 113 U/L (46-116); ALT (SGPT) 20 U/L (10-68); BILIRUBIN - TOTAL 0.52 mg/dL (0.2-1.3); CALC OSMOLALITY 283 mosm/kg (275-300); CALCIUM 9.9 mg/dL (8.5-10.1); CARBON DIOXIDE 29.5 mmol/L (21.0-32.0); CHLORIDE - SERUM 102 mmol/L (98-107); GLUCOSE 107 mg/dL (74-106); INR 1.69 (0.85-1.17); POTASSIUM - SERUM 3.8 mmol/L (3.5-5.1); PROTEIN - SERUM 6.7 g/dL (6.4-8.2); PROTIME 19.2 SECONDS (11.6-15.0); SODIUM 137 mmol/L (136-145); UREA NITROGEN 41 mg/dL (7-18); eGFR NON AFRICAN AMERICAN 75 mL/min (90-120)
[2019-04-19 07:30] VITALS: BP 151/44
--- NOTE | 2019-04-19 07:30 | NUR ---
IN RECLINER SLEEPING. AROUSES EASILY. ASSESSMENT COMPLETE. SEE FLOWSHEET.
--- NOTE | 2019-04-19 09:49 | NUR ---
DR. MARTINEZ HERE. CONDITION UPDATE GIVEN.
[2019-04-19 11:30] VITALS: BP 118/50
--- NOTE | 2019-04-19 14:47 | NUR ---
WALKED WITH PHYSICAL THERAPY USING WALKER.
[2019-04-19 15:24] VITALS: BP 121/48
[2019-04-19 20:00] VITALS: BP 146/53
--- NOTE | 2019-04-19 20:22 | NUR ---
Nutrition follow-up: Diet: Regular mechanical soft PO intake 100% of some meals Labs reviewed Wt: 131# Will offer nutritional supplements RDN following.
[2019-04-20 00:30] VITALS: BP 147/57
[2019-04-20 03:55] LABS: BASOPHILS 0.3 % (0-2); EOSINOPHILS 4.9 % (0-7); HEMATOCRIT 35.9 % (42.0-54.0); HEMOGLOBIN 12.1 g/dL (13.5-17.5); IMMATURE GRANULOCYTES 0.5 % (0-5); LYMPHOCYTES 30.8 % (15-50); MCH 31.9 pg (26.0-34.0); MCHC 33.7 g/dL (31.0-37.0); MCV 94.7 fL (80.0-100.0); MEAN PLATELET VOLUME 11.4 fL (7.4-10.4); MONOCYTES 8.4 % (2-11); NEUTROPHILS 55.1 % (40-80); PLATELET COUNT 199 10x3/uL (130-400); RBC 3.79 10x6/uL (4.20-6.10); RDW 14.6 % (11.5-14.5); WBC 6.2 10x3/uL (4.8-10.8)
[2019-04-20 04:00] LABS: INR 1.33 (0.85-1.17); PROTIME 15.9 SECONDS (11.6-15.0)
[2019-04-20 04:09] LABS: ALBUMIN 3.2 g/dL (3.4-5.0); ALKALINE PHOSPHATASE 125 U/L (46-116); ALT (SGPT) 24 U/L (10-68); BILIRUBIN - TOTAL 0.55 mg/dL (0.2-1.3); CALC OSMOLALITY 285 mosm/kg (275-300); CALCIUM 10.1 mg/dL (8.5-10.1); CARBON DIOXIDE 29.9 mmol/L (21.0-32.0); CHLORIDE - SERUM 103 mmol/L (98-107); CREATININE - SERUM 0.8 mg/dL (0.6-1.3); GLUCOSE 99 mg/dL (74-106); POTASSIUM - SERUM 3.9 mmol/L (3.5-5.1); PROTEIN - SERUM 7.1 g/dL (6.4-8.2); SODIUM 138 mmol/L (136-145); UREA NITROGEN 41 mg/dL (7-18); eGFR NON AFRICAN AMERICAN > 90 mL/min (90-120)
[2019-04-20 07:00] VITALS: BP 157/77
--- NOTE | 2019-04-20 07:52 | NUR ---
spoke with dr gar about pt mcmahan insertion. order for flomax received. asked mcmahan to be removed a few hours after medication administration.
--- NOTE | 2019-04-20 08:47 | NUR ---
PT ATE ALL OF BREAKFAST. MENU CHOICES MADE FOR FUTURE MEALS. MORNING MEDICATIONS GIVEN. PT NOW UP TO BEDSIDE COMMODE WITH ASSIST FORM PHYSICAL THERAPIST.
--- NOTE | 2019-04-20 09:30 | NUR ---
pt assisted up to bedside commode. another bowel movement. very, large hard formed stools. pt assisted with cleaning and returned to chair. chair alarm on. pt resting quietly at this time.
[2019-04-20 11:00] VITALS: BP 120/37
--- NOTE | 2019-04-20 15:06 | NUR ---
pt remains sleeping in chair at bedside. no distress noted. vss.
[2019-04-20 15:08] VITALS: BP 132/46
--- NOTE | 2019-04-20 16:30 | NUR ---
OBX CATHETER REMOVED. TIP INTACT.
--- NOTE | 2019-04-20 17:01 | NUR ---
DR WATERS HAS BEEN BY TO SEE PATIENT. ALERTED TO PATIENT SLEEPING A LOT TODAY. SLEPT THROUGH LUNCH. PT WAS AWAKENED AND POSITIONED IN CHAIR FOR EATING. TRAY PLACED ON TABLE AND SITUATED FOR EATING. PT RETURNED TO SLEEPING WITHOUT EATING ANYTHING. AWAKENED WHEN DR WATERS IN ROOM, BUT RETURNED TO SLEEPING.
[2019-04-20 20:00] VITALS: BP 142/38
[2019-04-21] VITALS (9 sets, daily range): BP systolic 129–160; BP diastolic 40–54
--- NOTE | 2019-04-21 07:31 | NUR ---
REPORT RECEIVED. SHIFT ASSESSMENT COMPLETE. PT VERY SLEEPY AT THIS TIME. WAKES WHEN SPOKEN TO, BUT EASILY FALLS BACK ASLEEP. BED ALARM ON AND CHECKED. SIDE RAILS X2. CALL LIGHT IN REACH.
--- NOTE | 2019-04-21 07:36 | NUR ---
PT PULSE DIPPING INTO 50'S AT TIMES WHILE HE IS ASLEEP. HAVE SEEN UPPER 40'S. ALARMS ARE SET TO ALERT RATE UNDER 60.
--- NOTE | 2019-04-21 08:22 | NUR ---
CALLED AND SPOKE WITH DR LORENZO ABOUT PT HR AND SLEEPINESS. REVIEWED PRIMIDONE ADMINISTRATION AND NEW ORDER RECEIVED TO CHANGE TO NIGHTLY DOSE ONLY. WILL WAIT ON RESULTS OF PT/INR TO SEE ABOUT RESTARTING COUMADIN OR ADD LOVENOX.
--- NOTE | 2019-04-21 09:15 | NUR ---
BLUING OVEN TENDER WAS AT BEDSIDE TO DRAW LAB. PT DID NOT STIR AT ALL THROUGHOUT BLOOD DRAW. PT NO LONGER FOLLOWS COMMANDS. DOES NOT RESPOND TO STERNAL RUB. PUPILS EQUAL AND REACTIVE. VSS. NO NOTED RESPIRATORY DISTRESS. CALLED AND SPOKE WITH DR LORENZO. TO GET HEAD CT.
[2019-04-21 09:21] LABS: INR 1.32 (0.85-1.17); PROTIME 15.9 SECONDS (11.6-15.0)
--- NOTE | 2019-04-21 09:22 | NUR ---
Nutrition follow up: Pt ate 100% of breakfast yesterday on regular mechanical soft diet then did not eat lunch or dinner Pt is not eating, or taking medications today because he is not awake enough to eat/take meds. Will add Ensure Nursing has a call into physician RD following
[2019-04-21 09:26] LABS: ALBUMIN 2.5 g/dL (3.4-5.0); ALKALINE PHOSPHATASE 105 U/L (46-116); ALT (SGPT) 20 U/L (10-68); BILIRUBIN - TOTAL 0.43 mg/dL (0.2-1.3); CALC OSMOLALITY 290 mosm/kg (275-300); CALCIUM 9.5 mg/dL (8.5-10.1); CHLORIDE - SERUM 107 mmol/L (98-107); CREATININE - SERUM 0.7 mg/dL (0.6-1.3); GLUCOSE 92 mg/dL (74-106); HEMATOCRIT 30.2 % (42.0-54.0); HEMOGLOBIN 10.3 g/dL (13.5-17.5); LYMPHOCYTES 22.3 % (15-50); MCH 32.8 pg (26.0-34.0); MCHC 34.1 g/dL (31.0-37.0); MCV 96.2 fL (80.0-100.0); MEAN PLATELET VOLUME 11.5 fL (7.4-10.4); NEUTROPHILS 63.2 % (40-80); POTASSIUM - SERUM 4.2 mmol/L (3.5-5.1); PROTEIN - SERUM 5.6 g/dL (6.4-8.2); RBC 3.14 10x6/uL (4.20-6.10); RDW 14.9 % (11.5-14.5); SODIUM 141 mmol/L (136-145); UREA NITROGEN 40 mg/dL (7-18); WBC 5.2 10x3/uL (4.8-10.8); eGFR NON AFRICAN AMERICAN > 90 mL/min (90-120)
[2019-04-21 09:35] LABS: PLATELET COUNT 159 10x3/uL (130-400)
--- NOTE | 2019-04-21 09:54 | NUR ---
PT TAKEN TO MEDICAL IMAGING FOR CT OF HEAD. AWAKENED FOR BRIEF MOMENT WHEN TRANSFERRING FROM TABLE TO BED, BUT IMMEDIATELY RETURNED TO SLEEP. NO VERBAL RESPONSE FROM PT WHEN SPOKEN TO. PT RETURNED TO ROOM AND PLACED BACK ON BEDSIDE MONITORING. BED ALARM REINGAGED. SIDE RAILS X2.
--- NOTE | 2019-04-21 11:40 | NUR ---
PT FOUND TO HAVE URINATED SELF. PARTIAL BATH, PERICARE PROVIDED. PARTIAL LINEN CHANGE. PT REPOSITIONED TO LEFT SIDE.
--- NOTE | 2019-04-21 13:09 | NUR ---
OT NOTE: ATTEMPTED EVAL AGAIN TODAY, HOWEVER, UNABLE TO AROUSE PT. PERFORMED STERNAL RUB AND STILL UNABLE TO AWAKEN. WILL RE ATTEMPT TOMORROW. THANK YOU , JODY JAMISON, OTR/L
--- NOTE | 2019-04-21 13:32 | NUR ---
PT CONTINUES TO SLEEP. NO DISTRESS NOTED. WILL CONTINUE TO MONITOR.
--- NOTE | 2019-04-21 13:54 | NUR ---
PT FOUND TO HAVE URINATED ON SELF. PT CLEANED UP, FULL LINEN CHANGE. REPOSITIONED TO RIGHT SIDE. UPON CLEANING PT, HE OPENED EYES AND C/O BEING "COLD" AND HE ATTEMPTED TO PULL COVERS ONTO HIM. ATTEMPTED TO ENGAGE PT TO TALK MORE. ASKED HIM IF HE WAS IN ANY PAIN, AND HE RESPONDED "LEFT HIP". PT THEN RETURNED TO SLEEPING.
--- NOTE | 2019-04-21 14:12 | NUR ---
DR LORENZO BY TO SEE PATIENT. TO ORDER LASIX. PLACE BOX. ORDER AIR-OVERLAY MATTRESS.
--- NOTE | 2019-04-21 15:28 | NUR ---
PT PLACED ON AIR OVERLAY. 16F BOX CATHETER PLACED WITH NO DIFFICULTY. 275ML CONCENTRATED URINE RETURNED. PT AWAKENED WHEN TRANSFERRING FROM BED TO BED AND COMPLAINED OF BEING COLD. LET ME KNOW THAT HE WAS 88 YEARS OLD AND THEN HIS SPEECH BECAME SOFT AND UNINTELLIGIBLE AND HE DRIFTED BACK TO SLEEP.
--- NOTE | 2019-04-21 17:30 | NUR ---
HAVE ATTEMPTED TO GET PATIENT TO EAT, WOULD NOT. TOOK 2 SIPS OF ENSURE AND NO MORE. SCD'S PLACED ON PATIENT.
[2019-04-22] VITALS (7 sets, daily range): BP systolic 131–148; BP diastolic 47–62
[2019-04-22 04:00] LABS: BASOPHILS 0.2 % (0-2); EOSINOPHILS 4.6 % (0-7); HEMATOCRIT 31.6 % (42.0-54.0); HEMOGLOBIN 10.8 g/dL (13.5-17.5); IMMATURE GRANULOCYTES 0.2 % (0-5); LYMPHOCYTES 22.9 % (15-50); MCH 32.5 pg (26.0-34.0); MCHC 34.2 g/dL (31.0-37.0); MCV 95.2 fL (80.0-100.0); MEAN PLATELET VOLUME 11.6 fL (7.4-10.4); MONOCYTES 6.6 % (2-11); NEUTROPHILS 65.5 % (40-80); PLATELET COUNT 183 10x3/uL (130-400); RBC 3.32 10x6/uL (4.20-6.10); WBC 5.5 10x3/uL (4.8-10.8)
[2019-04-22 04:06] LABS: INR 1.25 (0.85-1.17); PROTIME 15.2 SECONDS (11.6-15.0)
[2019-04-22 04:18] LABS: ALKALINE PHOSPHATASE 92 U/L (46-116); ALT (SGPT) 22 U/L (10-68); BILIRUBIN - TOTAL 0.73 mg/dL (0.2-1.3); CALC OSMOLALITY 289 mosm/kg (275-300); CALCIUM 10.1 mg/dL (8.5-10.1); CARBON DIOXIDE 29.7 mmol/L (21.0-32.0); CHLORIDE - SERUM 107 mmol/L (98-107); CREATININE - SERUM 0.8 mg/dL (0.6-1.3); GLUCOSE 95 mg/dL (74-106); POTASSIUM - SERUM 4.5 mmol/L (3.5-5.1); PROTEIN - SERUM 6.3 g/dL (6.4-8.2); SODIUM 142 mmol/L (136-145); UREA NITROGEN 33 mg/dL (7-18); eGFR NON AFRICAN AMERICAN > 90 mL/min (90-120)
--- NOTE | 2019-04-22 07:00 | NUR ---
PT RESTING IN BED AWAKE AND ALERT C CALL LIGHT IN REACH. VSS. HEART RATE IRREGULAR BUT WITH P WAVES AND WNL. OTHER VSS. EDEMA TO LOWER EXTERMETIES. PULSES PALPABLE. SCD'S INTACT. NO COMPLAINTS. WILL CONTINUE TO MONITOR.
--- NOTE | 2019-04-22 09:05 | NUR ---
PHYSICAL THERAPY ASSISTED PATIENT TO CHAIR WITH WALKER.
--- NOTE | 2019-04-22 09:49 | NUR ---
OBTAINED EKG AND PAGED DR. ACEVEDO. PATIENT IN A-FIB RVR. SPOKE TO NURSE IN TREE AND SHRUB TECHNICIAN DR. ACEVEDO IS UNABLE TO COME TO PHONE RIGHT NOW. NURSE STATED HE WOULD RELAY THE MESSAGE TO DR. ACEVEDO AND HAVE HIM CALL ME BACK.
--- NOTE | 2019-04-22 11:00 | NUR ---
DR. ACEVEDO MADE ROUNDS. SHOWED EKG TAKEN TODAY WITH A-FIB RVR. PATIENT CURRENTLY HAS HEART RATE IN 90'S. DECIDED NOT TO RESTART ANY MEDS FOR HEART RATE CONSIDERING PATIENT IS MORE ALERT WITH THIS ELEVATED HEART RATE. GAVE OKAY TO TRANSFER TO FLOOR.
--- NOTE | 2019-04-22 13:00 | NUR ---
SERVED LUNCH TRAY TO PT SITTING UP IN CHAIR. VSS.
--- NOTE | 2019-04-22 14:21 | NUR ---
NO BM TODAY. UNABLE TO COLLECT STOOL SAMPLE.
--- NOTE | 2019-04-22 15:31 | NUR ---
RECEIVED PT TO ROOM 2120 FROM CV ICU VIA W/C IN STABLE CONDITION AAOX4 AT THIS TIME RESP UNLABORED ON ROOM AIR DENIES ANY PAIN OR NEEDS AT THIS TIME
--- NOTE | 2019-04-22 15:34 | MORECARE ---
CASE MANAGEMENT DISCHARGE SUMMARY PATIENT: ANGELES VASQUEZ UNIT: [id number] ADM DATE: 04/15/19 AGE: 88 : 29 SEX: M ROOM/BED: D.2121 AUTHOR: CASSIUS,DOC PHYSICIAN: REFERRING PHYSICIAN: LEBRON LORENZO MD DATE OF SERVICE: 04/22/19 Discharge Plan Patient Name: ANGELES VASQUEZ Facility: [facility]:[place] : 1930 Planned Disposition: Home with Home Health Anticipated Discharge Date: Discharge Date: Expected LOS: Initial Reviewer: [email or web address] Initial Review Date: 04/18/2019 Generated: 04/22/19 4:34 pm DCP- Discharge Planning Updated by [email or web address]: Julienne Jennings on 04/22/19 2:[address] CM called and left message with APS trying to find out if patient has an open case with APS or has been seen previously. Awaiting call back on status. At this time will plan for possible inpatient rehab for strengthening before discharge home / ? SNF. CM will continue to follow and assist as needed with discharge planning / needs. DCP- Discharge Planning Updated by [email or web address]: Kristie Burgess on 04/18/19 6:[address] Late Entry 1422 The primary nurse states the patient is confused. Nursing documentation states he is confused. CM received a discharge planning consult. DR Lorenzo spoke with the CM. He stated the patient's daughter is his caregiver. He had stated the home health had declined to continue service because of dtr's behavior. The daughter states the patient has prison care w/[facility]. CM will verify w/ [facility] in the AM. Patient stated he stayed with his and grandson. He has been 67 years. The daughter states the has dementia and she takes care of them both. The grandson, Steve, is 28 years old and does live with his mother and grandparents in the grandparent's home. There are 5 stairs to enter the front door of the house. patient requires the assist of one and his to enter. The daughter laughed during the discussion regarding the patient's care and needs,. She states her father is angry with her sending him to the hospital. She states her parents does not want strangers in their home. She says their waterbed broke recently and she had to take care of cleaning everything up. I ask if the house was safe . She stated yes. She states her father is very stubborn and set in his ways. She states she has taken over his medication administration. 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 She says he is confused but " I can manage if he learns to cooperate". CM will follow to assist w/ discharge. Will verify if home health is current. The primary states APS has been contacted in the past. Will check to see if APS still follows. DCPIA - Discharge Planning Initial Assessment Updated by [email or web address]: Kristie Burgess on 04/18/19 6:44 pm * Is the patient Alert and Oriented? No * How many steps to enter\\exit or inside your home? Five steps * PCP DR Lorenzo * Pharmacy [facility] * Preadmission Environment Home with Family * ADLs Partial Dependent * Partial ADLs (Assistance needed) Bathing Dressing Medication Management * Equipment Cane Walker * Other Equipment As per dtr the patient only has cane and walker * List name and contact numbers for known caregivers / representatives who currently or will assist patient after discharge: Jocy Ervin- dtr- [phone] * Verbal permission to speak to the caregivers and representatives has been obtained from the patient. N/A * Community resources currently utilized Home Health * Please name any agencies selected above. [facility]- to verify * Additional services required to return to the preadmission environment? Yes * Can the patient safely return to the preadmission environment? Yes * Has this patient been hospitalized within the prior 30 days at any hospital? No Last DP export: 04/18/19 6:06 p Patient Name: ANGELES VASQUEZ Page 34522 at 1534 All edits/amendments must be made on the electronic document DICTATION DATE: 04/22/191533 TANK TRUCK OPERATOR: NIGEL 04/22/191533 RPT#: [id number] DC DATE: STATUS: ADM IN [facility] [address] [place] [address] END OF REPORT
--- NOTE | 2019-04-22 15:45 | NUR ---
OT NOTE: PT COMPLETED BUE AROM EXS. THANK YOU, JOSE PHAN
--- NOTE | 2019-04-22 16:02 | MORECARE ---
CASE MANAGEMENT DISCHARGE SUMMARY PATIENT: ANGELES VASQUEZ UNIT: [id number] ADM DATE: 04/15/19 AGE: 88 : 29 SEX: M ROOM/BED: D.2121 AUTHOR: CASSIUS,DOC PHYSICIAN: REFERRING PHYSICIAN: LEBRON LORENZO MD DATE OF SERVICE: 04/22/19 Discharge Plan Patient Name: ANGELES VASQUEZ Facility: [facility]:[place] : 1930 Planned Disposition: Home with Home Health Anticipated Discharge Date: Discharge Date: Expected LOS: Initial Reviewer: [email or web address] Initial Review Date: 04/18/2019 Generated: 04/22/19 5:02 pm Comments DCP- Discharge Planning Updated by [email or web address]: Julienne Jennings on 04/22/19 2:[address] APS returned call and stated that the patient didn't have an open case or hasn't had a previous case listed in the system. CM will continue to follow and assist as needed. DCP- Discharge Planning Updated by [email or web address]: Julienne Jennings on 04/22/19 2:[address] CM called and left message with APS trying to find out if patient has an open case with APS or has been seen previously. Awaiting call back on status. At this time will plan for possible inpatient rehab for strengthening before discharge home / ? SNF. CM will continue to follow and assist as needed with discharge planning / needs. DCP- Discharge Planning Updated by [email or web address]: Kristie Burgess on 04/18/19 6:[address] Late Entry 1422 The primary nurse states the patient is confused. Nursing documentation states he is confused. CM received a discharge planning consult. DR Lorenzo spoke with the CM. He stated the patient's daughter is his caregiver. He had stated the home health had declined to continue service because of dtr's behavior. The daughter states the patient has senior care care w/[facility]. CM will verify w/ [facility] in the AM. Patient stated he stayed with his and grandson. He has been 67 years. The daughter states the has dementia and she takes care of them both. The grandson, Steve, is 28 years old and does live with his mother and grandparents in the grandparent's home. There are 5 stairs to enter the front door of the house. patient requires the assist of one and his to enter. The daughter laughed during the discussion regarding the patient's care and needs,. She states her father is angry with her sending him to the hospital. She states her parents does not want strangers in their home. She says their waterbed broke recently and she had to take care of cleaning everything up. I ask if the house was safe . She stated yes. She states her father is very stubborn and set in his ways. She states she has taken over his medication administration. 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 She says he is confused but " I can manage if he learns to cooperate". CM will follow to assist w/ discharge. Will verify if home health is current. The primary states APS has been contacted in the past. Will check to see if APS still follows. DCPIA - Discharge Planning Initial Assessment Updated by [email or web address]: Kristie Burgess on 04/18/19 6:44 pm * Is the patient Alert and Oriented? No * How many steps to enter\\exit or inside your home? Five steps * PCP DR Lorenzo * Pharmacy [facility] * Preadmission Environment Home with Family * ADLs Partial Dependent * Partial ADLs (Assistance needed) Bathing Dressing Medication Management * Equipment Cane Walker * Other Equipment As per dtr the patient only has cane and walker * List name and contact numbers for known caregivers / representatives who currently or will assist patient after discharge: Jocy Ervin- dtr- [phone] * Verbal permission to speak to the caregivers and representatives has been obtained from the patient. N/A * Community resources currently utilized Home Health * Please name any agencies selected above. [facility]- to verify * Additional services required to return to the preadmission environment? Yes * Can the patient safely return to the preadmission environment? Yes * Has this patient been hospitalized within the prior 30 days at any hospital? No Last DP export: 04/22/19 2:34 p Patient Name: ANGELES VASQUEZ Page [id number] at 1602 All edits/amendments must be made on the electronic document DICTATION DATE: 04/22/191600 COURT SECURITY OFFICER: NIGEL 04/22/191600 RPT#: [id number] DC DATE: STATUS: ADM IN [facility] [address] [place] [address] END OF REPORT
--- NOTE | 2019-04-22 16:08 | NUR ---
Rehab Note- Acute Inpatient Rehab prescreen order received. The patient was able today to participate in the OT Eval, has been very lethargic. Being transferred out ot floor, will monitor to see if the patient is able to participate in the required 3hrs/day of therapy and able to participate in PT. Also awaiting return call from APS to see about possible open case and discharge plan. Will follow at this time. Thank you for this referral! Beth Ghosh RN Clinical Liaison, [facility]
--- NOTE | 2019-04-22 16:10 | MORECARE ---
CASE MANAGEMENT DISCHARGE SUMMARY PATIENT: ANGELES VASQUEZ UNIT: [id number] ADM DATE: 04/15/19 AGE: 88 : 28 SEX: M ROOM/BED: D.2121 AUTHOR: CASSIUS,DOC PHYSICIAN: REFERRING PHYSICIAN: LEBRON LORENZO MD DATE OF SERVICE: 04/22/19 Discharge Plan Patient Name: ANGELES VASQUEZ Facility: [facility]:[place] : 1930 Planned Disposition: Home with Home Health Anticipated Discharge Date: Discharge Date: Expected LOS: Initial Reviewer: [email or web address] Initial Review Date: 04/18/2019 Generated: 04/22/19 5:10 pm Comments DCP- Discharge Planning Updated by [email or web address]: Julienne Jennings on 04/22/19 3:[address] APS returned call and stated that the patient didn't have an open case or hasn't had a previous case listed in the system. CM will continue to follow and assist as needed. Appended by Julienne Jennings on 04/22/2019 16:04 CDT: CM contacted [facility] and they do provide Home Health care to patient. DCP- Discharge Planning Updated by [email or web address]: Julienne Jennings on 04/22/19 2:[address] CM called and left message with APS trying to find out if patient has an open case with APS or has been seen previously. Awaiting call back on status. At this time will plan for possible inpatient rehab for strengthening before discharge home / ? SNF. CM will continue to follow and assist as needed with discharge planning / needs. DCP- Discharge Planning Updated by [id number]: Kristie Burgess on 04/18/19 6:[address] Late Entry 1422 The primary nurse states the patient is confused. Nursing documentation states he is confused. CM received a discharge planning consult. DR Lorenzo spoke with the CM. He stated the patient's daughter is his caregiver. He had stated the home health had declined to continue service because of dtr's behavior. The daughter states the patient has shelter care w/[facility]. CM will verify w/ [facility] in the AM. Patient stated he stayed with his and grandson. He has been 68 years. The daughter states the has dementia and she takes care of them both. The grandson, Steve, is 28 years old and does live with his mother and grandparents in the grandparent's home. There are 5 stairs to enter the front door of the house. patient requires the assist of one and his to enter. The daughter laughed during the discussion regarding the patient's care and needs,. She states her father is angry with her sending him to the hospital. She states her parents does not want strangers in their home. She says their waterbed broke recently and she had to take care of cleaning everything up. I ask if the house was safe . She stated yes. She states her father is very stubborn and set in his ways. She states she has taken over his medication administration. 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 She says he is confused but " I can manage if he learns to cooperate". CM will follow to assist w/ discharge. Will verify if home health is current. The primary states APS has been contacted in the past. Will check to see if APS still follows. DCPIA - Discharge Planning Initial Assessment Updated by [email or web address]: Kristie Burgess on 04/18/19 6:44 pm * Is the patient Alert and Oriented? No * How many steps to enter\\exit or inside your home? Five steps * PCP DR Lorenzo * Pharmacy [facility] * Preadmission Environment Home with Family * ADLs Partial Dependent * Partial ADLs (Assistance needed) Bathing Dressing Medication Management * Equipment Cane Walker * Other Equipment As per dtr the patient only has cane and walker * List name and contact numbers for known caregivers / representatives who currently or will assist patient after discharge: Jocy Ervin- dtr- [phone] * Verbal permission to speak to the caregivers and representatives has been obtained from the patient. N/A * Community resources currently utilized Home Health * Please name any agencies selected above. [facility]- to verify * Additional services required to return to the preadmission environment? Yes * Can the patient safely return to the preadmission environment? Yes * Has this patient been hospitalized within the prior 30 days at any hospital? No Last DP export: 04/22/19 3:02 p Patient Name: ANGELES VASQUEZ Page [id number] at 1610 All edits/amendments must be made on the electronic document DICTATION DATE: 04/22/191609 REFRIGERATION REPAIR SUPERVISOR: NIGEL 04/22/19 161 RPT#: [id number] DC DATE: STATUS: ADM IN [facility] [address] [place] [address] END OF REPORT
--- NOTE | 2019-04-22 19:36 | NUR ---
ASSESSMENT COMPLETE, PT A&O. RESPERATIONS EVEN ON RA. IV TO LEFT ARM SL, SITE CLEAN AND DRY. BOX DRAINING TO GRAVITY. PT DENIES PAIN OR NEEDS, BED LOW, CL IN REACH.
--- NOTE | 2019-04-22 20:45 | NUR ---
HS MEDS GIVEN WITH FRESH ICE WATER. PT CURRENTLY DENIES PAIN OR NEEDS. CUP OF COFFEE GIVEN AT PT REQUEST.
[2019-04-23] VITALS: BP 154/55
--- NOTE | 2019-04-23 01:42 | NUR ---
RESTING WITH EYES CLOSED, RESPERATIONS EVEN, NO S/S DISTRESS NOTED.
--- NOTE | 2019-04-23 02:38 | NUR ---
I have reviewed this patient and I concur with the Shift Assessment completed by the Licensed Practical Nurse today this shift.
--- NOTE | 2019-04-23 02:38 | NUR ---
I have reviewed this patient and I concur with the Shift Assessment completed by the Licensed Practical Nurse today this shift.
[2019-04-23 04:00] VITALS: BP 142/60
[2019-04-23 05:27] LABS: BASOPHILS 0.4 % (0-2); EOSINOPHILS 6.5 % (0-7); HEMATOCRIT 29.7 % (42.0-54.0); HEMOGLOBIN 9.9 g/dL (13.5-17.5); IMMATURE GRANULOCYTES 0.2 % (0-5); LYMPHOCYTES 26.8 % (15-50); MCH 31.6 pg (26.0-34.0); MCHC 33.3 g/dL (31.0-37.0); MCV 94.9 fL (80.0-100.0); MEAN PLATELET VOLUME 11.2 fL (7.4-10.4); MONOCYTES 12.1 % (2-11); PLATELET COUNT 155 10x3/uL (130-400); RBC 3.13 10x6/uL (4.20-6.10); RDW 14.9 % (11.5-14.5); WBC 4.8 10x3/uL (4.8-10.8)
[2019-04-23 05:33] LABS: INR 1.31 (0.85-1.17); PROTIME 15.7 SECONDS (11.6-15.0)
[2019-04-23 05:46] LABS: ALBUMIN 3.4 g/dL (3.4-5.0); ALKALINE PHOSPHATASE 92 U/L (46-116); ALT (SGPT) 21 U/L (10-68); BILIRUBIN - TOTAL 0.66 mg/dL (0.2-1.3); CALC OSMOLALITY 285 mosm/kg (275-300); CALCIUM 10.2 mg/dL (8.5-10.1); CARBON DIOXIDE 29.7 mmol/L (21.0-32.0); CHLORIDE - SERUM 104 mmol/L (98-107); CREATININE - SERUM 0.8 mg/dL (0.6-1.3); GLUCOSE 86 mg/dL (74-106); POTASSIUM - SERUM 4.2 mmol/L (3.5-5.1); PROTEIN - SERUM 6.3 g/dL (6.4-8.2); SODIUM 139 mmol/L (136-145); UREA NITROGEN 37 mg/dL (7-18); eGFR NON AFRICAN AMERICAN > 90 mL/min (90-120)
--- NOTE | 2019-04-23 07:05 | NUR ---
ROUNDING DONE WITH PATIENT BEING PLACED ON SETH MAT ALARM HE IS NOT ON ONE AT THIS TIME. THERE IS A VERY LARGE BRUISE SEEN TO BACK OF RIGHT BUTTOCK DOWN TO BACK OF RIGHT THIGH. STAGE 2 SEEN TO RIGHT BUTTOCK NEAR COCCYX AND COCCYX AREA. MEPILEX SACRUM PLACED ON THIS AREA AND DATED. SMALL SKIN TEAR SEEN TO LEFT ELBOW, OPSITE PLACED AND DATED. ON HEART MONIOTR SHOWING CAF, HR 60. ON ROOM AIR. LEFT FA PIV SEEN WITH SALINE LOCK, WILL PLACE ORANGE SWAB CAP. BOX CATH PATENT WITH CLEAR YELLOW URINE.
--- NOTE | 2019-04-23 07:58 | NUR ---
WHILE REVIEWING CHART CHECK, PATIENT IS SUPPOSE TO HAVE A K PAD TO LEFT HIP, THERE IS NONE IN THE ROOM. WILL FOLLOW UP ON THIS. ALSO, PATIENT IS ON EP, K+ THIS AM IS 4.2. NO NEED TO COVER WITH SUPPLEMENTS.
--- NOTE | 2019-04-23 08:08 | NUR ---
I HAVE TRIED TO CALL [employer] FOR THE KPAD AND THERE IS NO ANSWER.
[2019-04-23 08:38] VITALS: BP 153/56
--- NOTE | 2019-04-23 10:22 | NUR ---
PATIENT PLACED IN CHAIR PAST WORKING WITH THERAPY. CHAIR SETH MAT ALARM IN USE. COMPLETE BED LINEN CHANGE DONE, UPPER AND LOWER DENTURES SOAKED AND SCRUBBED, SHAVED, AND BATH GIVEN.
--- NOTE | 2019-04-23 11:18 | NUR ---
Nutrition follow-up: Diet: Regular mechanical soft with ENsure TID PO intake very poor due to not very alert; nurse reports pt is drinking some Ensure Labs reviewed Wt: 176# may need to consider NGT, PEG tube placement and nutrition support started if po intake remains poor. RDN following.
[2019-04-23 11:39] VITALS: BP 139/71
--- NOTE | 2019-04-23 11:44 | NUR ---
STOOL SENT TO LAB ORDERED.
--- NOTE | 2019-04-23 12:47 | NUR ---
THERAPY HERE TO ASSIST PATIENT BACK TO BED PAST EATING LUNCH. SETH MAT ALARM IS ON AND IN USE.
--- NOTE | 2019-04-23 13:48 | NUR ---
VISITING WITH MALE FRINED IN ROOM. SETH MAT ALARM IS ON AND IN USE.
--- NOTE | 2019-04-23 14:08 | NUR ---
OT NOTE: PT UP IN CHAIR; VERY CONVERSANT TODAY, BUT REMAINS CONFUSED. ABLE TO PERFORM SIMPLE GROOMING TASKS INCLUDING WASHING FACE, HANDS, AND UPPER BODY WITH WASH CLOTH. PRACTICED SIT TO STAND FROM CHAIR WITH SOME DIFFICULTY DUE TO SHORTER CHAIR, HOWEVER, ACTUAL TRANSFER WITH WALKER WITH MIN ASSIST. RECOMMEND IP REHAB FOR FURTHER STRENGTHENING PRIOR TO DC HOME JODY JAMISON, OTR/L
--- NOTE | 2019-04-23 14:15 | NUR ---
PATIENT IS RESTING WITH EYES CLOSED, RESP ARE EVEN. GLASSES ON. SETH MAT ALARM ON AND IN USE.
[2019-04-23 15:55] VITALS: BP 165/55
--- NOTE | 2019-04-23 16:56 | NUR ---
K PAD FINALLY TO FLOOR AND PLACED UNDER LEFT HIP ORDERED.
--- NOTE | 2019-04-23 19:11 | NUR ---
BEDSIDE REPORT RECEIVED. PT ASLEEP. AROUSES TO VERBAL STIMULI. GLASSES ON, DENTURES IN. BOX NOTED. K PAD ON LEFT HIP. NAME AND DATE PLACED ON BOARD. BEDLOW AND CALL LIGHT IN REACH. NO S/S OF DISTRESS. WILL CPOC
[2019-04-23 20:00] VITALS: BP 139/47
--- NOTE | 2019-04-23 22:04 | NUR ---
NIGHT MEDICATIONS GIVEN. NORCO GIVEN FOR GENERALIZED DISCOMFORT. PT DENIES ANY NEEDS. DENTURES PLACED IN A CUP AND CLEANED. PT BEDLOW AND CALL LIGHT IN REACH. WILL CPOC
--- NOTE | 2019-04-23 23:24 | NUR ---
PT KPAD LEAKED ONTO BED. CLEANED PT AND CHANGED LINEN AND GOWN. MEPILEX NOTED ON BUTTOCK FOR EXCORIATION AND SMALL SORES. PT HAS A SCANT AMOUNT OF STOOL IN BUTTOCK. CLEANED AREA. PT HAS REDNESS ON RIGHT HEEL. STAGE ONE. PLACED A HEEL PROTECTOR ON BOTH HEELS. PT HAS NO S/S OF DISTRESS. WILL CPOC
[2019-04-24] VITALS: BP 162/54
[2019-04-24 04:00] VITALS: BP 164/56
[2019-04-24 05:39] LABS: BASOPHILS 0.3 % (0-2); EOSINOPHILS 6.5 % (0-7); HEMATOCRIT 32.1 % (42.0-54.0); HEMOGLOBIN 10.6 g/dL (13.5-17.5); IMMATURE GRANULOCYTES 0.2 % (0-5); LYMPHOCYTES 23.2 % (15-50); MCH 31.5 pg (26.0-34.0); MCV 95.5 fL (80.0-100.0); MEAN PLATELET VOLUME 11.3 fL (7.4-10.4); MONOCYTES 9.8 % (2-11); PLATELET COUNT 185 10x3/uL (130-400); RBC 3.36 10x6/uL (4.20-6.10)
[2019-04-24 05:42] LABS: INR 1.29 (0.85-1.17); PROTIME 15.5 SECONDS (11.6-15.0)
[2019-04-24 05:52] LABS: ALBUMIN 3.1 g/dL (3.4-5.0); ALKALINE PHOSPHATASE 98 U/L (46-116); ALT (SGPT) 19 U/L (10-68); BILIRUBIN - TOTAL 0.62 mg/dL (0.2-1.3); CALC OSMOLALITY 287 mosm/kg (275-300); CARBON DIOXIDE 30.9 mmol/L (21.0-32.0); CHLORIDE - SERUM 104 mmol/L (98-107); CREATININE - SERUM 0.8 mg/dL (0.6-1.3); GLUCOSE 94 mg/dL (74-106); POTASSIUM - SERUM 4.3 mmol/L (3.5-5.1); PROTEIN - SERUM 6.3 g/dL (6.4-8.2); SODIUM 139 mmol/L (136-145); UREA NITROGEN 40 mg/dL (7-18); eGFR NON AFRICAN AMERICAN > 90 mL/min (90-120)
--- NOTE | 2019-04-24 06:45 | NUR ---
PT ASLEEP. AROUSES TO PHYSICAL STIMULI. PT HAS NO S/S OF DISTRESS,. BEDLOW AND CALL LIGHT IN REACH,. WILL CPOC
[2019-04-24 08:02] VITALS: BP 165/56
--- NOTE | 2019-04-24 11:27 | CN ---
PATIENT NAME:ANGELES QUEEN MEDICAL RECORD: [id number] : 28 LOCATION:D. D.2121 ADMIT DATE: 04/15/19 ACCOUNT: [id number] CONSULTING PHYSICIAN: MICHELLE ACEVEDO MD REFERRING PHYSICIAN: LEBRON LORENZO MD DATE OF CONSULTATION: 04/15/2019 CARDIOLOGY CONSULTATION DIAGNOSES: 1. Bradycardia. 2. Atrial fibrillation, chronic. 3. Valvular heart disease, mitral regurgitation, aortic insufficiency. 4. Hypertension. 5. Hyperlipidemia. HISTORY OF PRESENT ILLNESS: Mr. Queen presents with mental status changes, found to have heart rates in the 30s. He has chronic atrial fibrillation, followed by Dr. Jade for this. For the atrial fibrillation, he is on metoprolol and digoxin. The digoxin was a relatively recent addition due to tachycardia with the atrial fibrillation with hypertension, this is controlled on quinapril. Hyperlipidemia, controlled with simvastatin. PHYSICAL EXAMINATION: GENERAL APPEARANCE: Well-nourished, well-developed, appears stated age. Level of distress, comfortable. PSYCHIATRIC: Mental status, alert, normal affect. Orientation, oriented to time, place and person. EYES: Lids and conjunctiva, noninjected. No discharge, no pallor. ENT: Lips, teeth, gums, normal dentition. Oropharynx, no cyanosis, no pallor. NECK: Carotid arteries, bilateral normal upstroke, no bruits, no thrills. JUGULAR VEINS: No jugular venous pressure or distention. CERVICAL LYMPH NODES: Nontender, nonenlarged. THYROID: Not enlarged. Nontender. No nodules. LUNGS: Respiratory effort, unlabored. CHEST: Normal curvature. No thoracic deformity. No chest wall tenderness. Percussion, resonant. Auscultation, clear. No wheezes, no rales, no rhonchi. CARDIOVASCULAR: Precordial exam, nondisplaced. No heaves or pericardial thrills. Rate and rhythm, regular. Heart sounds, normal S1, normal S2. No S3, no gallop, no rub. Systolic murmur, not heard. Diastolic murmur, not heard. EXTREMITIES: No cyanosis, no edema. Peripheral pulses, full and equal in all extremities, except as noted. No bruits appreciated. ABDOMEN: Soft, nondistended. Normal aorta. No bruit. Nontender. No masses. Liver, nontender, no hepatomegaly. Spleen, nontender, no splenomegaly. MUSCULOSKELETAL: No joint tenderness. No joint swelling. No erythema. NEUROLOGICAL: Normal gait, normal strength, normal tone. SKIN: Warm and dry. OVERALL IMPRESSION: Bradycardia. At this time, I would hold the digoxin and metoprolol. Most likely I will be restarting only metoprolol after his bradycardia resolves. TRANSINT:[id number] Voice Confirmation ID: [id number] DOCUMENT ID: [id number] CONSULT REPORT [id number] ANGELES QUEEN, MICHELLE SANABRIA at 1127 CC: [id number] DICTATION DATE: 04/15/19 1537 VAULT TELLER: 04/15/19 1555 ADM IN [facility] [id number] [place] [address]
--- NOTE | 2019-04-24 12:07 | NUR ---
PT SITTING UP IN BEDSIDE CHAIR WATCHING TV COMPLAINING OF A "SPLITTING HEADACHE" WILL PROVIDE WITH PRN PAIN MEDICATION REQUESTED. PT STATES HE IS NOT HUNGRY BUT HE IS FEELING GOOD OUT OF BED FOR A LITTLE BIT. NO FAMILY PRESENT. NO FURTHER NEEDS AT THIS TIME. CL IN REACH. BOX HANGING TO GRAVITY. WILL CTM.
--- NOTE | 2019-04-24 12:21 | MORECARE ---
CASE MANAGEMENT DISCHARGE SUMMARY PATIENT: ANGELES VASQUEZ UNIT: [id number] ADM DATE: 04/15/19 AGE: 88 : 29 SEX: M ROOM/BED: D.2121 AUTHOR: CASSIUS,DOC PHYSICIAN: REFERRING PHYSICIAN: LEBRON LORENZO MD DATE OF SERVICE: 04/24/19 Discharge Plan Patient Name: ANGELES VASQUEZ Facility: [facility]:[place] : 1930 Planned Disposition: Inpatient Rehab Anticipated Discharge Date: 04/24/19 Discharge Date: Expected LOS: 9 Initial Reviewer: [id number] Initial Review Date: 04/18/2019 Generated: 04/24/19 1:21 pm Comments DCP- Discharge Planning Updated by [id number]: Lavelle Figueroa on 04/24/19 11:[address] Patient Name: ANGELES VASQUEZ Encounter No: [id number] : 1930 Primary Insurance: MEDICARE A & B Anticipated DC Date: 04-24-2019 Planned Disposition: Inpatient Rehab External Planned Provider: [facility] INPATIENT REHAB DCP follow-up note: CM RECEIVED ORDER FOR INPATIENT REHAB PRESCREENING. CM MET WITH PT IN ROOM TO DISCUSS DISCHARGE NEEDS AND PLANNING. CM DISCUSSED AVAILABILITY OF HOME HEALTH, REHAB SERVICES AND MEDICAL EQUIPMENT. CM DISCUSSED AVAILABILTY OF REHAB SERVICES, PROVIDERS AND LOCATIONS. PT IN AGREEMENT WITH INPATIENT REHAB AT [place] PRIOR TO GOING HOME WITH FAMILY AND HOME HEALTH RESUMPTION. IMPORTANT MESSAGE FROM MEDICARE PROVIDED AND EXPLAINED. MARJAN OF INPATIENT REHAB HERE TO MEET WITH PT IN ROOM. CM TO FOLLOW AND ASSIST NEEDED. CM WAITING ADMISSION DETERMINATION FROM [facility] INPATIENT REHAB. Lavelle Figueroa, CASE MANAGEMENT DCP- Discharge Planning Updated by [id number]: Julienne Jennings on 04/22/19 3:[address] APS returned call and stated that the patient didn't have an open case or hasn't had a previous case listed in the system. CM will continue to follow and assist as needed. Appended by Julienne Jennings on 04/22/2019 16:04 CDT: [facility] contacted [facility] and they do provide Home Health care to patient. DCP- Discharge Planning Updated by [id number]: Julienne Jennings on 04/22/19 2:[address] CM called and left message with APS trying to find out if patient has an open case with APS or has been seen previously. Awaiting call back on status. At this time will plan for possible inpatient rehab for strengthening before discharge home / ? SNF. CM will continue to follow and assist as needed with discharge planning / needs. DCP- Discharge Planning Updated by [id number]: Kristie Burgess on 04/18/19 6:[address] Late Entry 1422 The primary nurse states the patient is confused. Nursing documentation states he is confused. CM received a discharge planning consult. DR Lorenzo spoke with the CM. He stated the patient's daughter is his caregiver. He had stated the home health had declined to continue service because of dtr's behavior. The daughter states the patient has senior care care w/[facility]. CM will verify w/ [facility] in the AM. Patient stated he stayed with his and grandson. He has been 68 years. The daughter states the has dementia and she takes care of them both. The grandson, Steve, is 28 years old and does live with his mother and grandparents in the grandparent's home. There are 5 stairs to enter the front door of the house. patient requires the assist of one and his to enter. The daughter laughed during the discussion regarding the patient's care and needs,. She states her father is angry with her sending him to the hospital. She states her parents does not want strangers in their home. She says their waterbed broke recently and she had to take care of cleaning everything up. I ask if the house was safe . She stated yes. She states her father is very stubborn and set in his ways. She states she has taken over his medication administration. 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 She says he is confused but " I can manage if he learns to cooperate". CM will follow to assist w/ discharge. Will verify if home health is current. The primary states APS has been contacted in the past. Will check to see if APS still follows. DCPIA - Discharge Planning Initial Assessment Updated by [id number]: Kristie Burgess on 04/18/19 6:44 pm * Is the patient Alert and Oriented? No * How many steps to enter\\exit or inside your home? Five steps * PCP DR Lorenzo * Pharmacy [facility] * Preadmission Environment Home with Family * ADLs Partial Dependent * Partial ADLs (Assistance needed) Bathing Dressing Medication Management * Equipment Cane Walker * Other Equipment As per dtr the patient only has cane and walker * List name and contact numbers for known caregivers / representatives who currently or will assist patient after discharge: Jocy Ervin- dtr- [phone] * Verbal permission to speak to the caregivers and representatives has been obtained from the patient. N/A * Community resources currently utilized Home Health * Please name any agencies selected above. [facility]- to verify * Additional services required to return to the preadmission environment? Yes * Can the patient safely return to the preadmission environment? Yes * Has this patient been hospitalized within the prior 30 days at any hospital? No Coverage Notice Reviewer: [id number] Bouchra Figueroa Notice Issued Date-Time: 04/24/2019 11:41 Notice Type: IM Discharge Notice Notice Delivered To: Patient Relationship to Patient: Stockroom Keeper Name: Delivery Method: - Collette Days: Prior Verbal Notification: Recipient Understood Notice: Yes Recipient Signature: Yes Med Rec Note Co-signed by Attending: Coverage Notice Comment: Last DP export: 04/22/19 3:10 p Patient Name: ANGELES VASQUEZ Page 60168 at 1221 All edits/amendments must be made on the electronic document DICTATION DATE: 04/24/19 122 RUBBER GASKET INSPECTOR TRIMMER: NIGEL 04/24/19 1221 RPT#: [id number] DC DATE: STATUS: ADM IN [facility] [address] [place] [address] END OF REPORT
--- NOTE | 2019-04-24 13:25 | NUR ---
ROUNDING AND DISCUSSING PLAN OF CARE WITH PT. PHYSICAL THERAPY ASSISTED PT BACK INTO BED. PT VOICED THANKS FOR THE PAIN PILL AND NOW HIS HEADACHE IS GONE. PT DENIES ANY CURRENT NEEDS. CL IN REACH. WILL CTM.
--- NOTE | 2019-04-24 13:42 | NUR ---
Rehab Note- Visited with the patient, he is in agreeance with acute inpatient rehab when medically stable and ready for discharge from the acute hospital. Will continue to follow. Spoke w/ [facility] for possible D/C order. Thank you for this referral! Beth Ghosh RN CLinical Liaison, [facility] Rehab
--- NOTE | 2019-04-24 14:01 | MORECARE ---
CASE MANAGEMENT DISCHARGE SUMMARY PATIENT: ANGELES VASQUEZ UNIT: [id number] ADM DATE: 04/15/19 AGE: 88 : 29 SEX: M ROOM/BED: D.2121 AUTHOR: CASSIUS,DOC PHYSICIAN: REFERRING PHYSICIAN: LEBRON LORENZO MD DATE OF SERVICE: 04/24/19 Discharge Plan Patient Name: ANGELES VASQUEZ Facility: [facility]:[place] : 1930 Planned Disposition: Inpatient Rehab Anticipated Discharge Date: 04/24/19 Discharge Date: Expected LOS: 9 Initial Reviewer: [id number] Initial Review Date: 04/18/2019 Generated: 04/24/19 3:01 pm Comments DCP- Discharge Planning Updated by [id number]: Lavelle Figueroa on 04/24/19 11:[address] Patient Name: ANGLEES VASQUEZ Encounter No: [id number] : 1930 Primary Insurance: MEDICARE A & B Anticipated DC Date: 04-24-2019 Planned Disposition: Inpatient Rehab External Planned Provider: [facility] INPATIENT REHAB DCP follow-up note: CM RECEIVED ORDER FOR INPATIENT REHAB PRESCREENING. CM MET WITH PT IN ROOM TO DISCUSS DISCHARGE NEEDS AND PLANNING. CM DISCUSSED AVAILABILITY OF HOME HEALTH, REHAB SERVICES AND MEDICAL EQUIPMENT. CM DISCUSSED AVAILABILTY OF REHAB SERVICES, PROVIDERS AND LOCATIONS. PT IN AGREEMENT WITH INPATIENT REHAB AT [place] PRIOR TO GOING HOME WITH FAMILY AND HOME HEALTH RESUMPTION. IMPORTANT MESSAGE FROM MEDICARE PROVIDED AND EXPLAINED. MARJAN OF INPATIENT REHAB HERE TO MEET WITH PT IN ROOM. CM TO FOLLOW AND ASSIST NEEDED. CM WAITING ADMISSION DETERMINATION FROM [facility] INPATIENT REHAB. Lavelle Figueroa, CASE MANAGEMENT DCP- Discharge Planning Updated by [id number]: Julienne Jennings on 04/22/19 3:[address] APS returned call and stated that the patient didn't have an open case or hasn't had a previous case listed in the system. CM will continue to follow and assist as needed. Appended by Julienne Jennings on 04/22/2019 16:04 CDT: [facility] contacted [facility] and they do provide Home Health care to patient. DCP- Discharge Planning Updated by [id number]: Julienne Jennings on 04/22/19 2:[address] CM called and left message with APS trying to find out if patient has an open case with APS or has been seen previously. Awaiting call back on status. At this time will plan for possible inpatient rehab for strengthening before discharge home / ? SNF. CM will continue to follow and assist as needed with discharge planning / needs. DCP- Discharge Planning Updated by [id number]: Kristie Burgess on 04/18/19 6:[address] Late Entry 1422 The primary nurse states the patient is confused. Nursing documentation states he is confused. CM received a discharge planning consult. DR Lorenzo spoke with the CM. He stated the patient's daughter is his caregiver. He had stated the home health had declined to continue service because of dtr's behavior. The daughter states the patient has senior living care w/[facility]. CM will verify w/ [facility] in the AM. Patient stated he stayed with his and grandson. He has been 68 years. The daughter states the has dementia and she takes care of them both. The grandson, Steve, is 28 years old and does live with his mother and grandparents in the grandparent's home. There are 5 stairs to enter the front door of the house. patient requires the assist of one and his to enter. The daughter laughed during the discussion regarding the patient's care and needs,. She states her father is angry with her sending him to the hospital. She states her parents does not want strangers in their home. She says their waterbed broke recently and she had to take care of cleaning everything up. I ask if the house was safe . She stated yes. She states her father is very stubborn and set in his ways. She states she has taken over his medication administration. 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 She says he is confused but " I can manage if he learns to cooperate". CM will follow to assist w/ discharge. Will verify if home health is current. The primary states APS has been contacted in the past. Will check to see if APS still follows. DCPIA - Discharge Planning Initial Assessment Updated by [id number]: Kristie Burgess on 04/18/19 6:44 pm * Is the patient Alert and Oriented? No * How many steps to enter\\exit or inside your home? Five steps * PCP DR Lorenzo * Pharmacy [facility] * Preadmission Environment Home with Family * ADLs Partial Dependent * Partial ADLs (Assistance needed) Bathing Dressing Medication Management * Equipment Cane Walker * Other Equipment As per dtr the patient only has cane and walker * List name and contact numbers for known caregivers / representatives who currently or will assist patient after discharge: Jocy Ervin- dtr- [phone] * Verbal permission to speak to the caregivers and representatives has been obtained from the patient. N/A * Community resources currently utilized Home Health * Please name any agencies selected above. [facility]- to verify * Additional services required to return to the preadmission environment? Yes * Can the patient safely return to the preadmission environment? Yes * Has this patient been hospitalized within the prior 30 days at any hospital? No Coverage Notice Reviewer: [id number] Bouchra Figueroa Notice Issued Date-Time: 04/24/2019 11:41 Notice Type: IM Discharge Notice Notice Delivered To: Patient Relationship to Patient: Clerical Support Specialist Name: Delivery Method: - Collette Days: Prior Verbal Notification: Recipient Understood Notice: Yes Recipient Signature: Yes Med Rec Note Co-signed by Attending: Coverage Notice Comment: Last DP export: 04/24/19 11:21 a Patient Name: ANGELES VASQUEZ Page [id number] at 1401 All edits/amendments must be made on the electronic document DICTATION DATE: 04/24/19 1400 BRANCH OPERATIONS SPECIALIST: NIGEL 04/24/19 1400 RPT#: [id number] DC DATE: STATUS: ADM IN [facility] [address] [place] [address] END OF REPORT
--- NOTE | 2019-04-24 14:11 | MORECARE ---
CASE MANAGEMENT DISCHARGE SUMMARY PATIENT: ANGELES VASQUEZ UNIT: [id number] ADM DATE: 04/15/19 AGE: 88 : 29 SEX: M ROOM/BED: D.2121 AUTHOR: CASSIUS,DOC PHYSICIAN: REFERRING PHYSICIAN: LEBRON LORENZO MD DATE OF SERVICE: 04/24/19 Discharge Plan Patient Name: ANGELES VASQUEZ Facility: [facility]:[place] : 1930 Planned Disposition: Inpatient Rehab Anticipated Discharge Date: 04/24/19 Discharge Date: Expected LOS: 9 Initial Reviewer: [id number] Initial Review Date: 04/18/2019 Generated: 04/24/19 3:11 pm Comments DCP- Discharge Planning Updated by [id number]: Lavelle Figueroa on 04/24/19 1:[address] Patient Name: ANGELES VASQUEZ Encounter No: [id number] : 1930 Primary Insurance: MEDICARE A & B Anticipated DC Date: 04-24-2019 Planned Disposition: Inpatient Rehab External Planned Provider: [facility] INPATIENT REH[facility] DCP follow-up note: JUSTIN PALMA SPOKE TO TIM OF INPATIENT REHAB, THEY PLAN TO ACCEPT PT TODAY FOR REHAB. PT NOTIFIED, IN AGREEMENT WITH DISCHARGE TO INPATIENT REHAB. JUSTIN PALMA NOTIFIED DR. LORENZO WHO PROVIDED DISCHARGE ORDERS. CM CALLED AND NOTIFIED PT'S DAUGHTER Jocy Ervin- dtr- [phone], WHO IS ALSO IN AGREEMENT WITH REHAB AT [place]. [facility] NOTIFIED [facility]. [facility] INPATIENT REHAB TO CONTACT MED 2 NURSE WITH ROOM NUMBER WHEN READY TO ACCEPT PT AND NURSE REPORT. Lavelle Figueroa, CASE MANAGEMENT DCP- Discharge Planning Updated by [id number]: Lavelle Figueroa on 04/24/19 11:[address] Patient Name: ANGELES VASQUEZ Encounter No: [id number] : 1930 Primary Insurance: MEDICARE A & B Anticipated DC Date: 04-24-2019 Planned Disposition: Inpatient Rehab External Planned Provider: [facility] INPATIENT REH[facility] DCP follow-up note: CM RECEIVED ORDER FOR INPATIENT REHAB PRESCREENING. CM MET WITH PT IN ROOM TO DISCUSS DISCHARGE NEEDS AND PLANNING. CM DISCUSSED AVAILABILITY OF HOME HEALTH, REHAB SERVICES AND MEDICAL EQUIPMENT. CM DISCUSSED AVAILABILTY OF REHAB SERVICES, PROVIDERS AND LOCATIONS. PT IN AGREEMENT WITH INPATIENT REHAB AT [place] PRIOR TO GOING HOME WITH FAMILY AND HOME HEALTH RESUMPTION. IMPORTANT MESSAGE FROM MEDICARE PROVIDED AND EXPLAINED. TIM AND JACI OF INPATIENT REHAB HERE TO MEET WITH PT IN ROOM. CM TO FOLLOW AND ASSIST NEEDED. CM WAITING ADMISSION DETERMINATION FROM [facility] INPATIENT REH[facility]. Lavelle Figueroa, CASE MANAGEMENT DCP- Discharge Planning Updated by [id number]: Julienne Jennings on 04/22/19 3:[address] APS returned call and stated that the patient didn't have an open case or hasn't had a previous case listed in the system. CM will continue to follow and assist as needed. Appended by Julienne Jennings on 04/22/2019 16:04 CDT: [facility] contacted [facility] and they do provide Home Health care to patient. DCP- Discharge Planning Updated by [id number]: Julienne Jennings on 04/22/19 2:[address] CM called and left message with APS trying to find out if patient has an open case with APS or has been seen previously. Awaiting call back on status. At this time will plan for possible inpatient rehab for strengthening before discharge home / ? SNF. CM will continue to follow and assist as needed with discharge planning / needs. DCP- Discharge Planning Updated by [id number]: Kristie Burgess on 04/18/19 6:[address] Late Entry 1422 The primary nurse states the patient is confused. Nursing documentation states he is confused. CM received a discharge planning consult. DR Lorenzo spoke with the CM. He stated the patient's daughter is his caregiver. He had stated the home health had declined to continue service because of dtr's behavior. The daughter states the patient has snf care w/[facility]. CM will verify w/ [facility] in the AM. Patient stated he stayed with his and grandson. He has been 68 years. The daughter states the has dementia and she takes care of them both. The grandson, Steve, is 28 years old and does live with his mother and grandparents in the grandparent's home. There are 5 stairs to enter the front door of the house. patient requires the assist of one and his to enter. The daughter laughed during the discussion regarding the patient's care and needs,. She states her father is angry with her sending him to the hospital. She states her parents does not want strangers in their home. She says their waterbed broke recently and she had to take care of cleaning everything up. I ask if the house was safe . She stated yes. She states her father is very stubborn and set in his ways. She states she has taken over his medication administration. 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 She says he is confused but " I can manage if he learns to cooperate". CM will follow to assist w/ discharge. Will verify if home health is current. The primary states APS has been contacted in the past. Will check to see if APS still follows. DCPIA - Discharge Planning Initial Assessment Updated by [id number]: Kristie Burgess on 04/18/19 6:44 pm * Is the patient Alert and Oriented? No * How many steps to enter\\exit or inside your home? Five steps * PCP DR Lorenzo * Pharmacy [facility] * Preadmission Environment Home with Family * ADLs Partial Dependent * Partial ADLs (Assistance needed) Bathing Dressing Medication Management * Equipment Cane Walker * Other Equipment As per dtr the patient only has cane and walker * List name and contact numbers for known caregivers / representatives who currently or will assist patient after discharge: Jocy Ervin- dtr- [phone] * Verbal permission to speak to the caregivers and representatives has been obtained from the patient. N/A * Community resources currently utilized Home Health * Please name any agencies selected above. [facility]- to verify * Additional services required to return to the preadmission environment? Yes * Can the patient safely return to the preadmission environment? Yes * Has this patient been hospitalized within the prior 30 days at any hospital? No Coverage Notice Reviewer: [id number] - Lavelle Figueroa Notice Issued Date-Time: 04/24/2019 11:41 Notice Type: IM Discharge Notice Notice Delivered To: Patient Relationship to Patient: Leather Goods Ii Assembler Name: Delivery Method: - Collette Days: Prior Verbal Notification: Recipient Understood Notice: Yes Recipient Signature: Yes Med Rec Note Co-signed by Attending: Coverage Notice Comment: Last DP export: 04/24/19 1:01 p Patient Name: ANGELES VASQUEZ Page [phone] at 1411 All edits/amendments must be made on the electronic document DICTATION DATE: 04/24/191410 PROPERTY ACCOUNTANT: NIGEL 04/24/191410 RPT#: [id number] DC DATE: STATUS: ADM IN [facility] [address] [place] [address] END OF REPORT
--- NOTE | 2019-04-24 14:32 | NUR ---
ROLLED PT TO ASSESS HIS SORE ON HIS BOTTOM. PT HAS A STAGE 2 PRESSURE ULCER TO HIS COCCYX THAT IS VERY LIGHT PINK IN COLOR NO FOUL ODOR OR DRAINAGE, PT HAS SMALL SKIN TEAR TO HIS R.BUTT CHEEK APPEARS TO BE HEALING. CALMOSEPTINE ORDERED AND WILL BE APPLIED. WILL KEEP PT OFF HIS BOTTOM MUCH POSSIBLE AND KEEP SKIN CLEAN AND DRY.
[2019-04-24] MEDS ORDERED: CALMOSEPTINE OI71 GM TOPICAL (14:46)
--- NOTE | 2019-04-24 15:26 | NUR ---
PT ACCEPTED INTO INPATIENT REHAB. CALLED AND SPOKE TO RATNA AND SHE STATES THEY DO NOT HAVE A ROOM NUMBER YET. WILL CONTINUE TO WAIT. DISCHARGE TEACHING PROVIDED AND PT VERBALIZED UNDERSTANDING HOWEVER HE IS PLEASANTLY CONFUSED. PT STATES HE IS TOO WEAK TO SIGN HIS INSTRUCTIONS SO I DID HAVE A SECOND NURSE WITNESS AND SIGN HIS PAPERS. PT LYING IN BED RESTING QUIETLY JUST WAITING TO BE DISCHARGED TO REHAB. WILL CONTINUE TO TREAT UNTIL DISCHARGED. NO CURRENT NEEDS.
--- NOTE | 2019-04-24 17:12 | NUR ---
PULLED PT UP IN BED TO EAT DINNER. DAUGHTER AT BEDSIDE VISITING. EMPTIED BOX CATHETER OF 1100ML CLEAR YELLOW URINE. PT WILL EAT DINNER AND THEN GO TO INPATIENT REHAB. NO CURRENT NEEDS.
--- NOTE | 2019-04-24 17:26 | NUR ---
CALLED REPORT TO TOM HORNER IN REHAB. PT WILL TRANSFER VIA BED AFTER HE FINISHES EATING AND VISITING WITH HIS DAUGHTER.
--- NOTE | 2019-04-24 18:17 | NUR ---
PT FINISHED EATING AND READY TO GO TO REHAB. DISCHARGED PT DOWN TO INPATIENT REHAB ROOM 1118B WITH HIS DAUGHTER AT BEDSIDE. NO FURTHER NEEDS. NOTIFIED TELEMETRY MONITER TECH OF CHANGE IN ROOMS WELL.
[2019-04-25] MEDS ORDERED: HYDROCODON-ACE1 EAC7 PO (07:46)
[2019-06-22] MEDS ORDERED: COUMADIN4 MG PO (14:15)
[2019-06-22] MEDS ORDERED: VITAMIN C500 M1 PO (14:16)
[2019-06-22] MEDS ORDERED: MULTI-DAY VITAM1 TAB PO (14:16)
[2019-06-22] MEDS ORDERED: HYDROCODON-ACE1 EAC7 PO (14:17)
[2019-06-22] MEDS ORDERED: MYSOLINE250 MG PO (14:21)
[2019-07-20] MEDS ORDERED: ACIDOPHILUS-PE1 EACH PO (14:03)
[2019-07-20] MEDS ORDERED: COUMADIN5 MG PO (14:03)
== END 2019-04-24 18:18 | DRG 309 ==
LOC: D.ER 11:03 → D.CVICU 12:56 → D.M2 04-22 15:30
PROVIDERS: Family Medicine; ADMIT Family Medicine; ATTEND Family Medicine
DX: R00.1 Bradycardia, unspecified (principal); I50.32 Chronic diastolic (congestive) heart failure; N17.9 Acute kidney failure, unspecified; W19.XXXA Unspecified fall, initial encounter; I48.91 Unspecified atrial fibrillation; Z79.01 Long term (current) use of anticoagulants; S70.02XA Contusion of left hip, initial encounter; E78.5 Hyperlipidemia, unspecified; S30.0XXA Contusion of lower back and pelvis, initial encounter; I11.0 Hypertensive heart disease with heart failure

== ENCOUNTER 2019-04-24 17:00 | Inpatient (IN) | payer MEDICARE, BC ==
[~2019-04-24] VITALS: Ht 185.4 cm; Wt 70.3 kg
[~2019-04-24 17:00] MED LIST changes: +CALMOSEPTINE OI71 GM TOPICAL; -COUMADIN1 MG PO; +LANOXIN125 MCG PO; +VITAMIN B-121000 MCG PO
[2019-04-24 19:00] VITALS: BP 124/52
[2019-04-24 20:41] VITALS: BP 124/52; BMI 20.4
--- NOTE | 2019-04-25 02:39 | NUR ---
THE PATIENT APPEARS TO BE SLEEPING. BED IS IN THE LOW POSITION WITH SIDERAILS X2 AND CALL LIGHT WITHIN REACH.
[2019-04-25] MEDS ORDERED: HYDROCODON-ACE1 EAC7 PO (07:46)
[2019-04-25 08:00] VITALS: BP 180/61
[2019-04-25 08:03] LABS: BASOPHILS 0.4 % (0-2); EOSINOPHILS 5.9 % (0-7); HEMATOCRIT 30.5 % (42.0-54.0); HEMOGLOBIN 10.1 g/dL (13.5-17.5); LYMPHOCYTES 23.9 % (15-50); MCH 31.7 pg (26.0-34.0); MCHC 33.1 g/dL (31.0-37.0); MCV 95.6 fL (80.0-100.0); MEAN PLATELET VOLUME 10.9 fL (7.4-10.4); MONOCYTES 9.8 % (2-11); PLATELET COUNT 191 10x3/uL (130-400); RBC 3.19 10x6/uL (4.20-6.10); WBC 5.6 10x3/uL (4.8-10.8)
[2019-04-25 08:13] LABS: INR 1.28 (0.85-1.17); PROTIME 15.4 SECONDS (11.6-15.0)
[2019-04-25 08:23] LABS: CALC OSMOLALITY 286 mosm/kg (275-300); CALCIUM 9.9 mg/dL (8.5-10.1); CARBON DIOXIDE 30.7 mmol/L (21.0-32.0); CHLORIDE - SERUM 104 mmol/L (98-107); CREATININE - SERUM 0.8 mg/dL (0.6-1.3); GLUCOSE 89 mg/dL (74-106); SODIUM 139 mmol/L (136-145); UREA NITROGEN 40 mg/dL (7-18); eGFR NON AFRICAN AMERICAN > 90 mL/min (90-120)
--- NOTE | 2019-04-25 08:43 | NUR ---
PT SHOWERED WITH OT. PT NOW SITTING UP IN WHEELCHAIR EATING BREAKFAST, DENIES NEEDS. WCTM.
[2019-04-25 08:52] VITALS: Ht 185.4 cm; Wt 70.3 kg
--- NOTE | 2019-04-25 17:31 | NUR ---
PT EATING DINNER, DENIES NEEDS. HAVE ATTEMPTED TO COLLECT UA 5 TIMES TODAY. PT CONTINUES TO PULL RUBBER BAND CLAMP OFF OF BOX.
--- NOTE | 2019-04-25 19:27 | NUR ---
PTIS RESTING IN BED WITH EYES CLOSED. AWAKENS EASILY TO VERBAL STIMULI. ALERT TO SELF. CONFUSED TO TIME AND PLACE. BOX CATH IS PATENT AND DRAINING TO A GRAVITY BAG. PT DENIES ANY PAIN OR DISCOMFORT AT THIS TIME. NO NEEDS VOICED. SR'S ARE UP X 3 IN BED. CALL LIGHT AND BEDSIDE TABLE ARE WITHIN EASY REACH. BED ALARM IS ON.
[2019-04-25 19:50] VITALS: BP 172/79
[2019-04-25 21:00] LABS: APPEARANCE CLEAR (CLEAR); BILIRUBIN NEGATIVE (NEGATIVE); COLOR YELLOW (YELLOW); GLUCOSE NEGATIVE (NEGATIVE); KETONE SMALL mg/dL (NEGATIVE); NITRITE NEGATIVE (NEGATIVE); PROTEIN TRACE mg/dL (NEGATIVE); RED CELLS - URINE 0-5 /hpf (0-5); UROBILINOGEN NORMAL (NORMAL); WHITE CELLS - URINE RARE /hpf (0-5)
--- NOTE | 2019-04-25 22:20 | NUR ---
PATIENT SLEEPING AT THIS TIME. WILL CONTINUE TO MONTIOR.
--- NOTE | 2019-04-26 02:07 | NUR ---
RESTING IN BED WITH EYES CLOSED.
--- NOTE | 2019-04-26 04:53 | NUR ---
PT RESTING IN BED WITH EYES CLOSED. NO DISTRESS NOTED.
--- NOTE | 2019-04-26 06:34 | NUR ---
BOX CATH DC'D WITH BULB INTACT.
[2019-04-26 06:44] LABS: INR 1.28 (0.85-1.17); PROTIME 15.5 SECONDS (11.6-15.0)
[2019-04-26 08:00] VITALS: BP 176/62
--- NOTE | 2019-04-26 09:05 | NUR ---
PT AM MEDS ADMINISTERED. PT DENIES NEEDS. WCTM.
--- NOTE | 2019-04-26 10:00 | NUR ---
PT FELL ATTEMPTING TO GO TO THE BATHROOM ALONE. BED ALARM WAS ON AND SOUNDING. ENVELOPE SEALERUMESH, RESPONDED IMMEDIATELY AND PT WAS ALREADY IN THE FLOOR. LOC UNCHANGED. NO SKIN TEARS NOTED. PT STATES NO PAIN. 1013- DR US NOTIFIED. 1014- KENNEL STAFF MEMBER NOTIFIED. 1015- PT DAUGHTER, HAMZAH, NOTIFIED.
--- NOTE | 2019-04-26 12:31 | NUR ---
PT DRESSINGS CHANGED TO BOTTOM AND BACK. WOUND CARE CONSULT PLACED FOR DRESSING ORDERS.
--- NOTE | 2019-04-26 17:35 | NUR ---
PT EATING DINNER, DENIES NEEDS. WCTM.
--- NOTE | 2019-04-26 17:51 | NUR ---
I have reviewed this patient and I concur with the Shift Assessment completed by the Licensed Practical Nurse today this shift.
[2019-04-26 19:20] VITALS: BP 132/48
--- NOTE | 2019-04-26 19:20 | NUR ---
GREETED PATIENT AND INTRODUCED MYSELF. PATIENT LAYING IN SUPINE POSITION. DENIES ANY NEEDS AT THIS TIME. VITAL SIGNS OBTAINED. CALL LIGHT IN REACH.
--- NOTE | 2019-04-26 19:53 | NUR ---
PATIENT CLEANED OF INCONTINENT URINE. COMPLETE LINEN CHANGE. REPOSITIONED FOR COMFORT. CALL LIGHT IN REACH.
--- NOTE | 2019-04-26 22:29 | NUR ---
PATIENT CLEANED OF INCONTINENT URINE. COMPLETE LINEN CHANGE. PATIENT REPOSITIONED FOR COMFORT. CALL LIGHT IN REACH.
--- NOTE | 2019-04-26 23:36 | NUR ---
PATIENT RESTING QUIETLY WITH EYES CLOSED. LAYING IN SUPINE POSITION. HOB AT 30 DEGREES. RESPIRATIONS EVEN. NO S/S OF DISTRESS. SR UP X 2. BED IN LOWEST POSITION. ALARM ON AND WORKING PROPERLY FOR PATIENTS SAFETY. CALL LIGHT IN REACH.
--- NOTE | 2019-04-27 04:44 | NUR ---
PATIENT CLEANED OF INCONTINENT URINE. COMPLETE LINEN CHANGE. PATIENT REPOSITIONED FOR COMFORT. CALL LIGHT IN REACH.
[2019-04-27 06:46] LABS: BASOPHILS 0.4 % (0-2); EOSINOPHILS 6.9 % (0-7); HEMOGLOBIN 9.9 g/dL (13.5-17.5); IMMATURE GRANULOCYTES 0.4 % (0-5); LYMPHOCYTES 26.3 % (15-50); MCH 31.9 pg (26.0-34.0); MCV 96.8 fL (80.0-100.0); MEAN PLATELET VOLUME 10.6 fL (7.4-10.4); MONOCYTES 11.5 % (2-11); NEUTROPHILS 54.5 % (40-80); PLATELET COUNT 197 10x3/uL (130-400); WBC 4.9 10x3/uL (4.8-10.8)
[2019-04-27 07:03] LABS: CALC OSMOLALITY 288 mosm/kg (275-300); CALCIUM 10.1 mg/dL (8.5-10.1); CARBON DIOXIDE 31.6 mmol/L (21.0-32.0); CHLORIDE - SERUM 104 mmol/L (98-107); CREATININE - SERUM 0.8 mg/dL (0.6-1.3); GLUCOSE 88 mg/dL (74-106); POTASSIUM - SERUM 4.4 mmol/L (3.5-5.1); SODIUM 140 mmol/L (136-145); UREA NITROGEN 43 mg/dL (7-18); eGFR NON AFRICAN AMERICAN > 90 mL/min (90-120)
[2019-04-27 07:24] LABS: INR 1.33 (0.85-1.17); PROTIME 15.9 SECONDS (11.6-15.0)
--- NOTE | 2019-04-27 07:33 | NUR ---
RESTING WITH EYES CLOSED. CL IN REACH. BED ALARM ON.
[2019-04-27 08:00] VITALS: BP 166/62
--- NOTE | 2019-04-27 10:06 | NUR ---
SHOWER GIVEN PER NURSING.
--- NOTE | 2019-04-27 11:54 | NUR ---
TELEMETRY WAS REPLACED AFTER SHOWER. PATIENT REMOVED IT AND REFUSES TO WEAR IT AT THIS TIME. WILL NOTIFIY MD AND TELEMETRY MONITIR.
--- NOTE | 2019-04-27 13:42 | NUR ---
ATTEMPTED TO PUT FOOD SERVICE ASSISTANT BACK ON. REFUSES TO LET US PUT IT BACK ON.
--- NOTE | 2019-04-27 16:30 | NUR ---
PATIENT ADMITTED TO REHAB FROM ACUTE FLOOR. DR. LORENZO IS PATIENTS PCP, HE IS A CLIENT OF [address] . DME AT HOME IS A WALKER AND A CANE. DISCHARGE PLANS ARE FOR PATIENT TO RETURN HOME? WILL CONTINUE TO FOLLOW WITH PATIENT.
--- NOTE | 2019-04-27 16:50 | NUR ---
NO CHANGE IN ASSESSMENT, WENT TO THERAPY THIS AFTERNOON. BACK IN BED WITH BED ALARM ON. CL IN REACH.
--- NOTE | 2019-04-27 21:57 | NUR ---
PT UP ON SIDE OF BED, [place], [place], DAUGHTER AT BEDSIDE, NO NEEDS NOTED, FLUIDS AND CALL LIGHT WITHIN REACH
--- NOTE | 2019-04-27 23:39 | NUR ---
PT IN BED LOWEST POSITION, EYES CLOSED, AROUSES EASILY TO VOICE, BREATHS EVEN AND UNLABORED, NO IMMEDIATE NEEDS NOTED, FLUIDS AND CALL LIGHT WITHIN REACH
[2019-04-28 06:05] LABS: INR 1.49 (0.85-1.17); PROTIME 17.5 SECONDS (11.6-15.0)
--- NOTE | 2019-04-28 07:17 | NUR ---
RESTING WO DISTRESS. CL IN REACH. RESP EVEN AND UNLABORED.
[2019-04-28 08:00] VITALS: BP 145/65
--- NOTE | 2019-04-28 10:04 | NUR ---
Nutrition follow up Regular mechanical soft diet with 65% average po intake Pt is drinking Ensure Pt reports eating well and no nutritional requests at this time RD following
--- NOTE | 2019-04-28 10:19 | NUR ---
PARTICIPATING IN THERAPY AT THIS TIME.
[2019-04-28 20:00] VITALS: BP 144/58
--- NOTE | 2019-04-28 20:00 | NUR ---
PATIENT RECEIVED SITTING UP IN BED. ASSESSMENT & VITAL SIGNS DONE. NO C/O PAIN OR DISTRESS. PATIENT ALARM ON. BED LOW. CALL LIGHT & URINAL WITHIN REACH. WILL CONTINUE TO MONITOR.
--- NOTE | 2019-04-29 03:36 | NUR ---
PATIENT EYES CLOSED. RESPIRATIONS 18 & EVEN. BED LOW. ALARM ON. CALL LIGHT WITHIN REACH. WILL CONTINUE TO [id number].
[2019-04-29 07:04] LABS: BASOPHILS 0.6 % (0-2); EOSINOPHILS 5.3 % (0-7); HEMATOCRIT 30.5 % (42.0-54.0); IMMATURE GRANULOCYTES 0.4 % (0-5); LYMPHOCYTES 23.1 % (15-50); MCH 31.4 pg (26.0-34.0); MCHC 32.8 g/dL (31.0-37.0); MCV 95.9 fL (80.0-100.0); MEAN PLATELET VOLUME 10.4 fL (7.4-10.4); MONOCYTES 12.9 % (2-11); NEUTROPHILS 57.7 % (40-80); PLATELET COUNT 208 10x3/uL (130-400); RBC 3.18 10x6/uL (4.20-6.10); RDW 14.8 % (11.5-14.5); WBC 5.3 10x3/uL (4.8-10.8)
--- NOTE | 2019-04-29 07:08 | NUR ---
RESP EVEN AND UNLABAORED. ALERT AND ORIENTED. NO C/O PAIN.
[2019-04-29 07:19] LABS: INR 1.87 (0.85-1.17); PROTIME 20.8 SECONDS (11.6-15.0)
[2019-04-29 07:21] LABS: CALC OSMOLALITY 282 mosm/kg (275-300); CALCIUM 10.3 mg/dL (8.5-10.1); CARBON DIOXIDE 29.3 mmol/L (21.0-32.0); CHLORIDE - SERUM 103 mmol/L (98-107); CREATININE - SERUM 0.7 mg/dL (0.6-1.3); GLUCOSE 85 mg/dL (74-106); SODIUM 138 mmol/L (136-145); UREA NITROGEN 34 mg/dL (7-18); eGFR NON AFRICAN AMERICAN > 90 mL/min (90-120)
[2019-04-29 08:10] VITALS: BP 165/65
--- NOTE | 2019-04-29 10:26 | NUR ---
ACCIDENT URINE ON LINENS.
--- NOTE | 2019-04-29 13:10 | RHP ---
PATIENT: ANGELES VASQUEZ MEDICAL RECORD: [id number] ACCOUNT: [id number] LOCATION:[id number] : 28 ADMISSION DATE: 04/24/19 REHABILITATION HISTORY AND PHYSICAL EXAMINATION POST ADMISSION PHYSICIAN EXAMINATION POST ADMISSION PHYSICAL EXAMINATION AND HISTORY AND PHYSICAL DATE OF ADMISSION: 04/24/2019 ADMITTING DIAGNOSIS: Disuse myopathy. HISTORY OF PRESENT ILLNESS: The patient is an elderly gentleman, who is admitted to the acute inpatient rehab with a diagnosis of disuse myopathy. The patient had presented to the ED after a fall at home and altered mental status. He was admitted to the acute hospital and found to have a junctional rhythm, on dig and metoprolol. His heart rate was in the 30s-40s. Cardiology was consulted. His cardiac medications were held. His pulse rate improved and his blood pressure also improved. His Coumadin was placed on hold due to a large hematoma to the left buttock region from the fall. He had orthopedic surgery consultation during his stay. He is currently in AFib, on telemetry. He was restarted on his Coumadin. He is requiring monitoring for his bleeding. He has got a Zhao catheter due to acute urinary retention. He has been started on Flomax. He has had some acute confusion, which is slowly clearing. He has got proximal muscle weakness, deconditioning, debility, impaired mobility. He is a high-fall risk. He has got some skin conditions, which require some wound care at this time and self-care deficits. These are all barriers to his discharge home safely at this time. He lives at home with his daughter and grandson. States his has dementia and he does assist her with some of her care. He is moderately independent with his mobility, using a rolling walker or single-point cane. He was moderately independent with ADLs prior to this. He and his family would like for him to return home at his prior level of functioning or better and have home health set up at that time. Comorbidities include contusion to his left hip, acute fall from standing, acute left hip pain, bradycardia, atrial fib, valvular heart disease, hypertension, hyperlipidemia, chronic anticoagulation, azotemia, depression. PAST MEDICAL HISTORY: Significant for CVA in the past, TIA, dentures, bradycardia, coronary artery disease, constipation, arthritis. PAST SURGICAL HISTORY: Includes joint replacement. He has had hip surgery and a skin cancer removal. ALLERGIES: No known drug allergies. CURRENT MEDICATIONS: Include [place] 1 tab every 4 hours p.r.n. pain. He is on Coumadin 4.5 mg Saturday, Saturday, and . He is on Accupril 40 mg b.i.d., primidone 125 mg at bedtime and 250 daily. He is on Calmoseptine as needed. He is on hydrochlorothiazide 12.5 mg b.i.d., citalopram 20 mg daily. He is on electrolyte replacement protocol at this time. He is on polyethylene glycol 17 grams in 8 ounces of water daily. HABITS: No current alcohol or tobacco use. FAMILY HISTORY: Noncontributory. HISTORY AND PHYSICAL [id number] ANGELES VASQUEZ SOCIAL HISTORY: The patient hopes to return back home and get back to his prior level of functioning with his family. REVIEW OF SYSTEMS: GENERAL: He does complain of some weakness and fatigue. HEENT: Denies cold, cough, or congestion. CARDIOVASCULAR: Denies chest pain. PHYSICAL EXAMINATION: VITAL SIGNS: Stable, afebrile. GENERAL: Elderly gentleman, in no acute distress upon exam. HEENT: Normocephalic and atraumatic. Mucosa moist. NECK: Supple. No lymphadenopathy. LUNGS: Clear at this time with no wheeze, rhonchi, or rales. HEART: Regular rate and rhythm. No murmurs, rubs or gallops. ABDOMEN: Benign. EXTREMITIES: No clubbing, cyanosis or edema. NEUROLOGIC: He is a little bit slow to mentate. LABORATORY DATA: White count is 5.6, H&H of 10.1 and 30.5, and platelet count was noted to be 191. His sodium is 139, potassium 4.0, BUN and creatinine of 40 and 0.8, and blood sugar is noted to be 89. His INR today is 1.28. ASSESSMENT: This is an 88-year-old gentleman, admitted to the rehab with a working diagnosis of disuse myopathy. The patient has potential to make improvement. We will institute the following multidisciplinary therapies including, but not limited to, physical, occupational, respiratory, speech, nutritional services, prosthetics, and orthotics. Given his complex medical condition and risks for more complications, rehabilitation services cannot be provided at a lower level of care such as a skilled nurse facility. PLAN: 1. Admit to [facility] for inpatient therapy to include the following disciplines; A. Physical therapy to improve gait, all transfer skills, and bed mobility to modified independent level. B. Occupational therapy to modified independent level. C. Case management to assist with discharge planning and placement options. D. Nutrition to assist with nutritional needs. E. Rehabilitation nursing to assist in monitoring the patient's underlying medical conditions and to assist with any type of bowel or bladder management. 2. The patient's current medications and medical care will be continued. 3. The patient will be placed on standard fall precautions. 4. The patient's estimated length of stay is approximately 7-10 days. 5. We will discuss the patient during care team staff meeting this week. TRANSINT:[id number] Voice Confirmation ID: [id number] DOCUMENT ID: [id number] MAME notes whether there has been none or any medical/functional change since admission: - No change since preadmission screen. HISTORY AND PHYSICAL [id number] ANGELES VASQUEZ attests patient continues to be appropriate for IRF: - Continues to be appropriate. LEBRON US MD at 1310 CC: [id number] DICTATION DATE: 04/25/19 0853 HUMAN RESOURCES TALENT MANAGER: 04/25/19 0941 ADM IN [facility] [address] [place] [address]
--- NOTE | 2019-04-29 13:25 | NUR ---
SITTING IN WC. NO DISTRESS NOTED.
--- NOTE | 2019-04-29 15:19 | NUR ---
CARE TEAM MEETING: PATIENT TENATIVE DISCHARGE DATE IS 05/08/19. PATIENT IS PROGRESSING. WILL CONTINUE TO FOLLOW WITH PATIENT.
--- NOTE | 2019-04-29 16:58 | NUR ---
RESTING QUIETLY IN BED. NO DISTRESS NOTED. NO CHANGE IN ASSESSMENT.
[2019-04-29 19:00] VITALS: BP 130/76
--- NOTE | 2019-04-29 19:45 | NUR ---
GREETED PATIENT AND INTRODUCED MYSELF. PATIENT IS CONFUSED AT THIS TIME. CALL LIGHT IN REACH.
--- NOTE | 2019-04-30 01:59 | NUR ---
PATIENT AWAKE AND ASSISTED WITH URINAL. REPOSITIONED FOR COMFORT. CALL LIGHT IN REACH. BED ALARM ON AND WORKING PROPERLY.
--- NOTE | 2019-04-30 03:29 | NUR ---
PATIENT IS SITTING ON SIDE OF BED TRYING TO USE URINAL. PATIENT STATED "THAT HE DIDNT WANT TO USE THE URINAL." I TOLD PATIENT THAT IF HE WANTED TO GET UP THAT HE WOULD HAVE TO GET IN THE WHEELCHAIR. PATIENT IS REFUSING TO GET IN WHEELCHAIR, STATED " I CAN GO TO THE BATHROOM BY MYSELF." I REMINDED PATIENT THAT HE HAD A HISTORY OF FALLS AND THAT IT WOULDNT BE SAFE FOR HIM TO GO BY HIS SELF. FINALLY PATIENT GAVE UP AND TRYING TO USE URINAL.
[2019-04-30 05:26] LABS: INR 2.46 (0.85-1.17); PROTIME 25.9 SECONDS (11.6-15.0)
[2019-04-30 08:00] VITALS: BP 162/56
--- NOTE | 2019-04-30 08:06 | NUR ---
PT RESTING IN BED WITH EYES OPEN CALL LIGHT IN REACH NO PROBLEMS WILL MONITER
--- NOTE | 2019-04-30 14:30 | NUR ---
CL IN REACH.UP IN WC.
--- NOTE | 2019-04-30 18:40 | NUR ---
PT RESTING IN BED WITH EYES OPEN CALL LIGHT IN REACH NO PROBLEMS WILL MONITER
[2019-04-30 19:30] VITALS: BP 104/56
--- NOTE | 2019-04-30 21:05 | NUR ---
PT RESTING QUIETLY. CALL LIGHT IN REACH. WOKE PT TO CHECK ON HIM VERY HARD TO WAKE. MEDS HELD AT THIS TIME DUE TO LOW BP AND HARD TIME WAKING PT AND STAYING AWAKE. LUNGS CLEAR. BOWEL ACTIVE X4. RESP EVEN AND UNLABORED. CONFUSED. WILL RECHECK BP AGAIN IN 30 MIN IN ORDER TO GIVE MEDS AT THAT TIME. WILL CONTINUE TO MONITOR.
--- NOTE | 2019-04-30 23:41 | NUR ---
BP WNL MEDS GIVEN.
--- NOTE | 2019-05-01 02:40 | NUR ---
RESTING IN BED WITH EYES CLOSED AND RESPIRATIONS UNLABORED. NO DISTRESS NOTED.
--- NOTE | 2019-05-01 05:00 | NUR ---
CHANGED BRIEF DUE TO INCONT AT TIMES. USED URINAL MOSTLY THROUGHOUT NIGHT. DENIES NEEDS. CALL LIGHT IN REACH. BED ALARM ON. TM
[2019-05-01 07:27] LABS: BASOPHILS 0.3 % (0-2); EOSINOPHILS 4.4 % (0-7); HEMATOCRIT 31.4 % (42.0-54.0); HEMOGLOBIN 10.2 g/dL (13.5-17.5); IMMATURE GRANULOCYTES 0.2 % (0-5); LYMPHOCYTES 20.8 % (15-50); MCH 31.6 pg (26.0-34.0); MCHC 32.5 g/dL (31.0-37.0); MCV 97.2 fL (80.0-100.0); MEAN PLATELET VOLUME 10.6 fL (7.4-10.4); MONOCYTES 10.5 % (2-11); NEUTROPHILS 63.8 % (40-80); PLATELET COUNT 234 10x3/uL (130-400); RBC 3.23 10x6/uL (4.20-6.10); RDW 15.2 % (11.5-14.5); WBC 5.7 10x3/uL (4.8-10.8)
[2019-05-01 07:41] LABS: CALC OSMOLALITY 289 mosm/kg (275-300); CALCIUM 10.4 mg/dL (8.5-10.1); CARBON DIOXIDE 29.4 mmol/L (21.0-32.0); CHLORIDE - SERUM 105 mmol/L (98-107); CREATININE - SERUM 0.7 mg/dL (0.6-1.3); GLUCOSE 91 mg/dL (74-106); INR 2.8 (0.85-1.17); POTASSIUM - SERUM 4.2 mmol/L (3.5-5.1); PROTIME 28.7 SECONDS (11.6-15.0); SODIUM 141 mmol/L (136-145); UREA NITROGEN 38 mg/dL (7-18); eGFR NON AFRICAN AMERICAN > 90 mL/min (90-120)
[2019-05-01 07:55] VITALS: BP 129/54
--- NOTE | 2019-05-01 08:34 | NUR ---
PT RESTING IN BED WITH EYES OPEN CALL LIGHT IN REACH NO PROBLEMS WILL MONITER
--- NOTE | 2019-05-01 19:20 | NUR ---
PT RESTING QUIETLY. CALL LIGHT IN REACH. NO DISTRESS NOTED. BED IN LOW. SIDE RAILS X2. BED ALARM ON. RESP EVEN AND UNLABORED. WILL CONTINUE TO MONITOR. ASSESSMENT COMPLETE AT THIS TIME. LUNGS CLEAR. BOWEL ACTIVE X4. A/O X1.
[2019-05-01 20:52] VITALS: BP 140/55
--- NOTE | 2019-05-01 22:00 | NUR ---
ASSISTED PT TO AND FROM BATHROOM. MOD ASSIST. URINATED ONLY. DENIES FURTHER NEEDS AT THIS TIME. PT BACK IN BED. WCTM. NIGHT MEDS GIVEN WITH APPLESAUCE TOLERATED WELL. CALL LIGHT IN REACH
--- NOTE | 2019-05-02 01:29 | NUR ---
PT TRYING TO GET OUT OF BED WITHOUT HELP. BED ALARM WAS SOUNDING. ENCOURAGED PT TO USE URINAL BUT INSISTED ON GETTING UP NO MATTER WHAT. VERY CONFUSED AT THIS TIME. TRIED TO REORIENTATE NOT SUCCESSFUL. ASSISTED TO AND FROM BATHROOM. REMOVED WET BRIEFT AND PLACED URINAL BETWEEN PTS LEGS TO USE THROUGHOUT NIGHT. TM
--- NOTE | 2019-05-02 02:35 | NUR ---
RESTING IN BED WITH RESPIRATIONS UNLABORED. NO DISTRESS NOTED. CALL LIGHT IN REACH.
--- NOTE | 2019-05-02 04:00 | NUR ---
PT BED ALARM SOUNDING PT WAS TRYING TO GET UP OUT OF BED TO URINATE. EMPTIED URINAL OFF 400CC. ENCOURAGED PT TO USE IT INSTEAD OF GETTING UP. PT AGREED AND LAID BACK DOWN AND USED URINAL. GONZALEZ
[2019-05-02 07:42] LABS: INR 2.82 (0.85-1.17); PROTIME 28.9 SECONDS (11.6-15.0)
--- NOTE | 2019-05-02 08:00 | NUR ---
PATIENT IS ALERT/VERY CONFUSED. BED ALARM ON. SITTING UP IN BED TO EAT BREAKFAST. VOICES NO NEEDS. WILL CONTINUE WITH PLAN OF CARE.
[2019-05-02 08:08] VITALS: BP 171/71
--- NOTE | 2019-05-02 10:04 | NUR ---
BED ALARM WENT OFF. PATIENT SITTING AT THE SIDE OF HIS BED TO USE URINAL.
--- NOTE | 2019-05-02 13:24 | NUR ---
COURTNEY HELPED INTO BATHROOM. MIN ASST OF ONE FROM WHEELCHAIR TO TOILET. NEEDED HELP WITH BRIEF AND PANTS. CONT. OF BOWEL AND BLADDER.
--- NOTE | 2019-05-02 17:34 | NUR ---
PRN PAIN MEDICATION GIVEN FOR A HEADACHE PER PATEITN REQUEST
--- NOTE | 2019-05-02 19:33 | NUR ---
PT RESTING IN WHEELCHAIR. CHAIR ALARM ON. NO DISTRESS NOTED. EYES CLOSED. RESP EVEN AND UNLABORED. CALL LIGHT IN REACH. WILL CONTINUE TO MONITOR.
[2019-05-02 21:00] VITALS: BP 154/73
--- NOTE | 2019-05-02 21:30 | NUR ---
ASSISTED TO AND FROM BATHROOM. URINATED ONLY. PT BACK IN BED. DENIES FURTHER NEEDS OR PAIN. BED IN LOW. BED ALARM ON. LUNGS CLEAR. BOWEL ACTIVE X4. A/O X1. PM MEDS GIVEN WHOLE IN APPLESAUCE. NO DISTRESS NOTED. WCTM CALL LIGHT IN REACH.
--- NOTE | 2019-05-03 00:17 | NUR ---
PT COMPLAINING OF ABDOMEN PAIN AND NEEDING TO URINATE. LOWER ABDOMEN DISTENDED. BLADDER SCAN SHOWED 215 IN BLADDER. ENCOURAGED DRINKING MORE WATER. GAVE ICE WATER TO PT. WILL CONTINUE TO MONITOR.
--- NOTE | 2019-05-03 03:11 | NUR ---
PT ON LOC LIGHT STATING HE NEEDED HIS URINAL EMPTIED. EMPTIED 400CC. THEN PALPATED PT LOWER ABDOMEN DUE TO DISTENTION NOTED. PRESSED ON ABDOMEN AND PT STATED HE FELT LIKE HE NEEDED TO PEE AGAIN AFTER I PRESSED ON IT. 50CC OF URINE EMPTIED AGAIN. WILL CONTINUE TO MONITOR.
--- NOTE | 2019-05-03 05:34 | NUR ---
RESTING IN BED, RESPIRATIONS UNLABORED. HAS HAD NOTED CONFUSION TONIGHT. MONITORED OFTEN. CALL LIGHT IN REACH.
[2019-05-03 07:12] LABS: INR 2.49 (0.85-1.17); PROTIME 26.2 SECONDS (11.6-15.0)
--- NOTE | 2019-05-03 07:50 | NUR ---
THE PATIENT APPEARED TO BE SLEEPING BUT EASILY AWOKE WHEN STAFF ENTERED HIS ROOM. BED IS IN THE LOW POSITION WITH SIDERAILS X2 AND CALL LIGHT WITHIN REACH. THE PATIENT DEMONSTRATES APPROPRIATE USE OF A CALL LIGHT. THE PATIENT APPEARS COMFORTABLE WITH NO QUESTIONS OR CONCERNS AT THIS TIME.
[2019-05-03 08:31] VITALS: BP 170/67
[2019-05-03 18:44] VITALS: BP 130/67
--- NOTE | 2019-05-03 20:05 | NUR ---
PT SPILLED URINE IN BED, CLEAN ARNOLDO AREA AND CHANGE LINEN, BRIEF.
--- NOTE | 2019-05-03 22:01 | NUR ---
PATIENT RESTING QUIETLY IN BED WITH DAUGHTER AT BEDSIDE. WILL CONTINUE TO MONITOR.
--- NOTE | 2019-05-04 01:50 | NUR ---
PT C/O PAIN IN BLADDER AREA, AND THE AREA IS DISTENDED,BLADDER SCAN 983ML RETENTION. IN & OUT CATH 1000ML YELLOW, SMALL BLOOD CLOTS URINE OUTPUT. PT STATES HE IS FEELING BETTER."
--- NOTE | 2019-05-04 01:52 | NUR ---
URINE SAMPLE COLLECTED AND SENT IT TO LAB.
[2019-05-04 02:12] LABS: APPEARANCE HAZY (CLEAR); BACTERIA FEW /hpf (NONE SEEN); BILIRUBIN NEGATIVE (NEGATIVE); COLOR YELLOW (YELLOW); GLUCOSE NEGATIVE (NEGATIVE); KETONE NEGATIVE (NEGATIVE); NITRITE NEGATIVE (NEGATIVE); PROTEIN TRACE mg/dL (NEGATIVE); UROBILINOGEN NORMAL (NORMAL); WHITE CELLS - URINE 0-5 /hpf (0-5)
--- NOTE | 2019-05-04 04:38 | NUR ---
REST IN BED, RESP EVEN AND REGULAR, NO S/S OF DISTRESS.
[2019-05-04 07:08] LABS: INR 2.2 (0.85-1.17); PROTIME 23.7 SECONDS (11.6-15.0)
[2019-05-04 07:11] LABS: CALC OSMOLALITY 284 mosm/kg (275-300); CALCIUM 10.1 mg/dL (8.5-10.1); CARBON DIOXIDE 27.3 mmol/L (21.0-32.0); CHLORIDE - SERUM 105 mmol/L (98-107); CREATININE - SERUM 0.8 mg/dL (0.6-1.3); GLUCOSE 100 mg/dL (74-106); POTASSIUM - SERUM 4.1 mmol/L (3.5-5.1); SODIUM 139 mmol/L (136-145); UREA NITROGEN 31 mg/dL (7-18); eGFR NON AFRICAN AMERICAN > 90 mL/min (90-120)
[2019-05-04 07:36] LABS: BASOPHILS 0.4 % (0-2); EOSINOPHILS 2.5 % (0-7); HEMATOCRIT 30.9 % (42.0-54.0); HEMOGLOBIN 10.3 g/dL (13.5-17.5); IMMATURE GRANULOCYTES 0.3 % (0-5); LYMPHOCYTES 17.8 % (15-50); MCHC 33.3 g/dL (31.0-37.0); MEAN PLATELET VOLUME 10.3 fL (7.4-10.4); MONOCYTES 7.4 % (2-11); NEUTROPHILS 71.6 % (40-80); PLATELET COUNT 261 10x3/uL (130-400); RBC 3.22 10x6/uL (4.20-6.10); RDW 15.2 % (11.5-14.5); WBC 6.8 10x3/uL (4.8-10.8)
[2019-05-04 08:00] VITALS: BP 161/55
--- NOTE | 2019-05-04 08:35 | NUR ---
ADMININTERED MORNING MEDS WHOLE WITHOUT DIFFICULTY. DENIES ANY NEEDS OR PAIN. NO SIGNS OF DISTRESS NOTED. CALL LIGHT WITHIN REACH, FALL PRECAUTIONS IN PLACE WILL CONTINUE TO MONITOR
--- NOTE | 2019-05-04 14:06 | NUR ---
SITTING UP IN W/C ALERT. DENIES ANY NEEDS OR PAIN. NO SIGNS OF DISTRESS NOTED. CALL LIGHT WITHIN REACH, FALL PRECAUTIONS IN PLACE. WILL CONTINUE TO MONITOR
--- NOTE | 2019-05-04 20:23 | NUR ---
REC'D. WITH BED ALARM SOUNDING ENTERED ROOM UP WALKING WITH BEHIND WC GOING INTO BATHROOM REINFORCED TO ONLY GET UP WITH ASSIST. TO PREVENT FALLING ASKED IF UNDERSTANDS SAYS YES
[2019-05-04 20:51] VITALS: BP 127/59
--- NOTE | 2019-05-05 02:19 | NUR ---
RESTING IN BED WITH RESPIRATIONS UNLABORED. NOTED FORGETFUL AND GETS OUT OF BED WITHOUT CALLING. BED ALARM IN PLACE. REMINDED TO ALWAYS CALL FOR ASSISTANCE BEFORE GETTING OUT OF BED.
[2019-05-05 07:18] LABS: INR 2.49 (0.85-1.17); PROTIME 26.2 SECONDS (11.6-15.0)
--- NOTE | 2019-05-05 07:20 | NUR ---
RECEIVED REPORT. LYING IN BED SUPINE HOB 30 DEGREES ALERT AND ORIENTED X3. DENIES ANY NEEDS OR PAIN. CALL LIGHT WITHIN REACH, FALL PRECAUTIONS IN PLACE. WILL CONTINUE TO MONITOR
[2019-05-05 08:00] VITALS: BP 164/65
--- NOTE | 2019-05-05 13:41 | NUR ---
LYING IN BED SUPINE VISITING WITH ROOMMATE. DENIES ANY NEEDS OR PAIN. NO SIGNS OF DISTRESS NOTED. WILL CONTINUE TO MONITOR
--- NOTE | 2019-05-05 14:42 | NUR ---
Nutrition follow up Regular mechanical soft diet with 100% intake of meals based on available documentation. Ensure ordered on all trays Pt reports getting plenty of food and eating well. RD following per protocol
--- NOTE | 2019-05-05 16:44 | NUR ---
Pt was admitted with a stage 2 pressure injury on sacrum measuring 0.5cm x 0.3cm x 0.2cm. Wound bed is pink and clean. Calmoseptine cream is being applied twice daily and as needed with perineal care. Recommend continuing with the calmoseptine. Wound care continues to monitor.
--- NOTE | 2019-05-05 18:48 | NUR ---
LYING IN BED EYES CLOSED RESTING. NO SIGNS OF DISTRESS NOTED.
[2019-05-05 19:00] VITALS: BP 135/60
--- NOTE | 2019-05-05 20:00 | NUR ---
PATIENT RECEIVED SITTING UP IN BED. ASSESSMENT & VITAL SIGNS DONE. NO C/O PAIN OR DISTRESS. BED LOW. ALARM ON. URINAL & CALL LIGHT WITHIN REACH.WILL CONTINUE TO MONITOR.
--- NOTE | 2019-05-06 03:00 | NUR ---
PATIENT EYES CLOSED. RESPIRATIONS 18 & EVEN. BED LOW. ALARM ON. CALL LIGHT WITHIN REACH. WILL CONTINUE TO MONITOR.
--- NOTE | 2019-05-06 03:40 | NUR ---
PT IN BED LOWEST POSITION, EYES CLOSED OPENS EASILY TO VOICE, RESPIRATIONS SLOW AND EVEN, NO NEEDS NOTED, FLUIDS AND CALL LIGHT WITHIN REACH
[2019-05-06 07:23] LABS: BASOPHILS 0.4 % (0-2); HEMATOCRIT 30.7 % (42.0-54.0); IMMATURE GRANULOCYTES 0.4 % (0-5); LYMPHOCYTES 19.4 % (15-50); MCH 31.7 pg (26.0-34.0); MCHC 32.6 g/dL (31.0-37.0); MCV 97.5 fL (80.0-100.0); MEAN PLATELET VOLUME 10.3 fL (7.4-10.4); NEUTROPHILS 66.8 % (40-80); PLATELET COUNT 262 10x3/uL (130-400); RBC 3.15 10x6/uL (4.20-6.10); RDW 15.6 % (11.5-14.5); WBC 5.7 10x3/uL (4.8-10.8)
[2019-05-06 07:50] LABS: CALC OSMOLALITY 285 mosm/kg (275-300); CALCIUM 10.3 mg/dL (8.5-10.1); CARBON DIOXIDE 28.8 mmol/L (21.0-32.0); CHLORIDE - SERUM 104 mmol/L (98-107); CREATININE - SERUM 0.8 mg/dL (0.6-1.3); GLUCOSE 93 mg/dL (74-106); POTASSIUM - SERUM 3.9 mmol/L (3.5-5.1); SODIUM 140 mmol/L (136-145); UREA NITROGEN 32 mg/dL (7-18); eGFR NON AFRICAN AMERICAN > 90 mL/min (90-120)
[2019-05-06 08:00] VITALS: BP 158/70
--- NOTE | 2019-05-06 08:00 | NUR ---
PATIENT IS VERY CONFUSED. LYING IN BED. BED ALARM ON. CALL LIGHT WTHIN REACH. VOICES NO NEEDS AT THIS TIME. WILL CONTINUE WITH PLAN OF CARE
--- NOTE | 2019-05-06 10:06 | NUR ---
PATIENT IN REHAB ROOM. WORKING WITH PHYSICAL THERAPIST. DENIES ANY PAIN/DISC AT THIS TIME.
--- NOTE | 2019-05-06 12:00 | NUR ---
UP IN WC FOR LUNCH.
--- NOTE | 2019-05-06 12:18 | NUR ---
PATIENT GETTING UP ON OWN WITHOUT USING CALL LIGHT. PATIENTS ROOM BY NURSING STATION. BED ALARM SOUNDED. STAFF IN ROOM.
[2019-05-06 19:00] VITALS: BP 166/79
--- NOTE | 2019-05-06 19:30 | NUR ---
PT RESTING QUIETLY. CALL LIGHT IN REACH. NO DISTRESS NOTED AT THIS TIME. BED IN LOW SIDE RAILS X2. BED ALARM ON. PT CONFUSED WHEN AWAKE. RESP EVEN AND UNLABORED. WILL CONTINUE TO MONITOR.
--- NOTE | 2019-05-07 00:30 | NUR ---
ASSISTED TO AND FROM BATHROOM. DENIES FURTHER NEEDS. REFUSES TO USE URINAL TONIGHT USUALLY USES IT EVERY OTHER NIGHT. [facility] BED ALARM ON
--- NOTE | 2019-05-07 01:11 | NUR ---
ASSISTED TO AND FROM BATHROOM. [facility] BED ALARM ON BACK IN BED
--- NOTE | 2019-05-07 01:30 | NUR ---
RESTING IN BED AFTER BEING ASSISTED TO BATHROOM. CONTINUES TO HAVE SOME CONFUSION AND FORGETFULNESS. HAS ATTEMPTED TO WANDER INTO SOMEONE ELSE'S ROOM X 2 THIS SHIFT. WILL CONTINUE TO MONITOR.
--- NOTE | 2019-05-07 02:45 | NUR ---
ASSISTED TO AND FROM BATHROOM. BACK IN BED. DENIES FURTHER NEEDS. CL IN REACH. WCTM
--- NOTE | 2019-05-07 05:51 | NUR ---
PT RESTING QUIETLY. CALL LIGHT IN REACH. NO DISTRESS NOTED. WCTM
--- NOTE | 2019-05-07 07:30 | NUR ---
RECEIVED REPORT. SITTING UP IN W/C ALERT AND ORIENTED X2 REORIENTED TO TIME AND SITUATION. DENIES ANY NEEDS OR PAIN. CALL LIGHT WITHIN REACH, FALL PRECAUTIONS IN PLACE. WILL CONTINUE TO MONITOR
[2019-05-07 08:00] VITALS: BP 154/55
--- NOTE | 2019-05-07 13:18 | NUR ---
SITTING UP IN W/C. DENIES ANY NEEDS OR PAIN. NO SIGNS OF DISTRESS NOTED
--- NOTE | 2019-05-07 15:54 | NUR ---
LYING IN BED EYES CLOSED RESTING. NO SIGNS OF DISTRESS NOTED.
--- NOTE | 2019-05-07 23:35 | NUR ---
PT IN BED LOWEST POSITION, EYES CLOSED AROUSES EASILY TO VOICE, RESPIRATIONS EVEN AND UNLABORED, NO NEEDS NOTED, FLUIDS AND CALL LIGHT WITHIN REACH
--- NOTE | 2019-05-08 02:22 | NUR ---
PT C/O BELLY/BLADDER PAIN, NO PAIN MEDS PRESCRIBED, PRYDIUM FOR DISCOMFORT GIVEN
--- NOTE | 2019-05-08 03:52 | NUR ---
noted pt's belly distended and firm continues to c/o pain. bladder scan preformed 1000cc noted, in and out cath performed. pt comfortable at this time.
--- NOTE | 2019-05-08 07:39 | NUR ---
MOD ASST TO TRANSFER FROM BED TO . IS ALERT AND COOPERATIVE. SAT UP IN FOR BREAKFAST. CALL LIGHT IN REACH
[2019-05-08 07:44] LABS: BASOPHILS 0.3 % (0-2); EOSINOPHILS 3.2 % (0-7); HEMOGLOBIN 10.1 g/dL (13.5-17.5); IMMATURE GRANULOCYTES 0.5 % (0-5); MCH 32.3 pg (26.0-34.0); MCHC 33.7 g/dL (31.0-37.0); MCV 95.8 fL (80.0-100.0); MEAN PLATELET VOLUME 10.2 fL (7.4-10.4); MONOCYTES 12.4 % (2-11); NEUTROPHILS 61.6 % (40-80); PLATELET COUNT 268 10x3/uL (130-400); RBC 3.13 10x6/uL (4.20-6.10); RDW 15.1 % (11.5-14.5); WBC 6.2 10x3/uL (4.8-10.8)
[2019-05-08 07:56] LABS: CALC OSMOLALITY 280 mosm/kg (275-300); CALCIUM 10.4 mg/dL (8.5-10.1); CARBON DIOXIDE 28.1 mmol/L (21.0-32.0); CHLORIDE - SERUM 103 mmol/L (98-107); CREATININE - SERUM 0.9 mg/dL (0.6-1.3); GLUCOSE 94 mg/dL (74-106); POTASSIUM - SERUM 3.7 mmol/L (3.5-5.1); SODIUM 137 mmol/L (136-145); UREA NITROGEN 33 mg/dL (7-18); eGFR NON AFRICAN AMERICAN 84 mL/min (90-120)
[2019-05-08 07:57] LABS: INR 3.78 (0.85-1.17); PROTIME 36.4 SECONDS (11.6-15.0)
[2019-05-08 08:05] VITALS: BP 140/59
[2019-05-08] MEDS ORDERED: MACROBID100 MG PO (08:51)
--- NOTE | 2019-05-08 10:40 | NUR ---
DC HOME WITH ALL PERSONAL BELONGINS. DTR IN ROOM WITH PT TO TAKE HIM HOME. MEDS CALLED INTO [facility]. REVIEWED MEDS, DC PLAN, F/U APPTS. LEFT FLOOR IN
--- NOTE | 2019-05-08 10:43 | NUR ---
PATIENT DISCHARGING HOME WITH FAMILY TODAY . [facility] WILL PROVIDE THERAPY AT HOME.NO NEW DME NEEDED AT THIS TIME. DR. LORENZO 05/18/19 @ 10:00. PATIENT CHOICE FORM AND IMFM FORMS SIGNED, COPY GIVEN TO PATIENT AND FILED IN CHART. DISCHARGE INSTRUCTIONS FAXED TO PCP, HOME HEALTH AND REVIEWED WITH PATIENT.
[2019-05-11 18:07] LABS: AEROBE ID Final report (()); RESULT 1 Aerococcus urinae (())
== END 2019-05-08 12:32 | disposition home health service (06) | DRG 92 ==
LOC: D.REHAB 17:00
PROVIDERS: ADMIT Emergency Medicine; ATTEND Emergency Medicine
DX: G72.89 Other specified myopathies (principal); I38 Endocarditis, valve unspecified; S70.02XD Contusion of left hip, subsequent encounter; W19.XXXD Unspecified fall, subsequent encounter; I48.91 Unspecified atrial fibrillation; R00.1 Bradycardia, unspecified; I10 Essential (primary) hypertension; E78.5 Hyperlipidemia, unspecified; F32.9 Major depressive disorder, single episode, unspecified; R79.89 Other specified abnormal findings of blood chemistry; Z79.01 Long term (current) use of anticoagulants; M25.552 Pain in left hip; I48.2 Chronic atrial fibrillation

== ENCOUNTER 2019-05-09 11:30 | Inpatient (IN) | payer MEDICARE, BC ==
[2019-05-09] VITALS (9 sets, daily range): BP systolic 118–162; BP diastolic 55–70; BMI 21.8
[~2019-05-09] VITALS: Ht 185.4 cm; Wt 74.8 kg
[~2019-05-09 11:30] MED LIST changes: +HYDROCODON-ACE1 EAC7 PO; +MACROBID100 MG PO
[2019-05-09 12:36] LABS: BASOPHILS 0.3 % (0-2); EOSINOPHILS 3.5 % (0-7); HEMOGLOBIN 10.7 g/dL (13.5-17.5); IMMATURE GRANULOCYTES 0.3 % (0-5); LYMPHOCYTES 18.7 % (15-50); MCH 32.4 pg (26.0-34.0); MCHC 33.4 g/dL (31.0-37.0); NEUTROPHILS 65.2 % (40-80); PLATELET COUNT 273 10x3/uL (130-400); RDW 15.2 % (11.5-14.5); WBC 6.6 10x3/uL (4.8-10.8)
[2019-05-09 12:48] LABS: ALBUMIN 3.2 g/dL (3.4-5.0); ALKALINE PHOSPHATASE 118 U/L (46-116); ALT (SGPT) 22 U/L (10-68); BILIRUBIN - TOTAL 0.46 mg/dL (0.2-1.3); CALC OSMOLALITY 282 mosm/kg (275-300); CALCIUM 10.2 mg/dL (8.5-10.1); CARBON DIOXIDE 28.8 mmol/L (21.0-32.0); CHLORIDE - SERUM 103 mmol/L (98-107); CREATININE - SERUM 0.9 mg/dL (0.6-1.3); GLUCOSE 96 mg/dL (74-106); POTASSIUM - SERUM 4.1 mmol/L (3.5-5.1); PROTEIN - SERUM 6.9 g/dL (6.4-8.2); SODIUM 137 mmol/L (136-145); UREA NITROGEN 38 mg/dL (7-18); eGFR NON AFRICAN AMERICAN 84 mL/min (90-120)
[2019-05-09 15:01] LABS: COLOR DK YELLOW (YELLOW)
[2019-05-09 15:02] LABS: APPEARANCE CLEAR (CLEAR); BILIRUBIN NEGATIVE (NEGATIVE); GLUCOSE NEGATIVE (NEGATIVE); KETONE NEGATIVE (NEGATIVE); NITRITE NEGATIVE (NEGATIVE); PROTEIN NEGATIVE (NEGATIVE); SPECIFIC GRAVITY 1.005 (1.005-1.020); UROBILINOGEN NORMAL (NORMAL)
--- NOTE | 2019-05-09 18:42 | NUR ---
RECIEVED PT FROM ER VIA TRANSPORTED VIA BED, 02 PRESENT AT 2LPM, 18 GAUGE TO LEFT WRIST, INFUSING D5LR AT 10ML/HR. RESPONSIVE TO VERBAL STIMULI, WOULD NOT ANSWER QUESTIONS AT CURRENT TIME, EVEN UNLABORED BREATHING, BOX CATHETER PRESENT, NO URINE IN DRAINAGE SYSTEM, BED LOWERED AND LOCKED, CALL LIGHT WITHIN REACH.
[2019-05-10] VITALS: BP 121/65
[2019-05-10 04:00] VITALS: BP 149/61
--- NOTE | 2019-05-10 08:36 | NUR ---
AWAKE AND ALERT, DISORIENTED TO SITUATION, IV TO LEFT WRIST PATENT, INFUSING D5LR AT 100ML/HR. ON 2LPM VIA NC, BOX CATHER PRESENT, BED ALARM ON, DENIES ANY OTHER NEEDS OR DISCOMFORTS, BED LOWERD AND LOCKED, CALL LIGHT WITHIN, CPOC
[2019-05-10 08:49] VITALS: BP 137/74
[2019-05-10 12:39] VITALS: BP 120/60
--- NOTE | 2019-05-10 16:16 | MORECARE ---
CASE MANAGEMENT DISCHARGE SUMMARY PATIENT: ANGELES VASQUEZ UNIT: [id number] ADM DATE: 05/09/19 AGE: 88 : 29 SEX: M ROOM/BED: D.[facility] AUTHOR: DILIA HAMMONDS PHYSICIAN: REFERRING PHYSICIAN: LEBRON LORENZO MD DATE OF SERVICE: 05/10/19 Discharge Plan Patient Name: ANGELES VASQUEZ Facility: [facility]:[place] : 1930 Planned Disposition: Fdc Facility Anticipated Discharge Date: Discharge Date: Expected LOS: Initial Reviewer: [email or web address] Initial Review Date: 05/09/2019 Generated: 05/10/19 5:16 pm Patient Name: ANGELES VASQUEZ Page [id number] at 1616 All edits/amendments must be made on the electronic document DICTATION DATE: 05/10/191615 EARLY HEAD START DIRECTOR: NIGEL 05/10/191615 RPT#: [id number] DC DATE: STATUS: ADM IN [address] [place] [address] END OF REPORT
--- NOTE | 2019-05-10 16:23 | MORECARE ---
CASE MANAGEMENT DISCHARGE SUMMARY PATIENT: ANGELES VASQUEZ UNIT: [id number] ADM DATE: 05/09/19 AGE: 88 : 29 SEX: M ROOM/BED: D.2237 AUTHOR: DILIA HAMMONDS PHYSICIAN: REFERRING PHYSICIAN: LEBRON LORENZO MD DATE OF SERVICE: 05/10/19 Discharge Plan Patient Name: ANGELES VASQUEZ Facility: [facility]:[place] : 1930 Planned Disposition: [facility] Facility Anticipated Discharge Date: Discharge Date: Expected LOS: Initial Reviewer: [email or web address] Initial Review Date: 05/09/2019 Generated: 05/10/19 5:23 pm DCPIA - Discharge Planning Initial Assessment Updated by [email or web address]: Kristie Burgess on 05/10/19 4:21 pm * Is the patient Alert and Oriented? Yes * How many steps to enter\exit or inside your home? NONE * PCP DR ARRIAZA * Pharmacy [facility] * Preadmission Environment Home with Family * ADLs Partial Dependent * Partial ADLs (Assistance needed) Bathing Dressing Medication Management * Other Equipment CANE AND WALKER * List name and contact numbers for known caregivers / representatives who currently or will assist patient after discharge: HAMZAH GUTIERREZ- [facility]- [phone] * Verbal permission to speak to the caregivers and representatives has been obtained from the patient. No * Community resources currently utilized Home Health * Please name any agencies selected above. [facility] * Additional services required to return to the preadmission environment? Yes * Can the patient safely return to the preadmission environment? No * Has this patient been hospitalized within the prior 30 days at any hospital? Yes Last DP export: 05/10/19 3:16 p Patient Name: ANGELES VASQUEZ Page [id number] at 1623 All edits/amendments must be made on the electronic document DICTATION DATE: 05/10/191621 SUPERVISOR CUSTOMER COMPLAINT SERVICE: NIGEL 05/10/191621 RPT#: [id number] DC DATE: STATUS: ADM IN [facility] [address] [place] [address] END OF REPORT
--- NOTE | 2019-05-10 16:42 | MORECARE ---
CASE MANAGEMENT DISCHARGE SUMMARY PATIENT: ANGELES VASQUEZ UNIT: [id number] ADM DATE: 05/09/19 AGE: 88 : 29 SEX: M ROOM/BED: D.2237 AUTHOR: CASSIUS,DOC PHYSICIAN: REFERRING PHYSICIAN: LEBRON LORENZO MD DATE OF SERVICE: 05/10/19 Discharge Plan Patient Name: ANGELES VASQUEZ Facility: [facility]:[place] : 1930 Planned Disposition: Fdc Facility Anticipated Discharge Date: Discharge Date: Expected LOS: Initial Reviewer: [id number] Initial Review Date: 05/09/2019 Generated: 05/10/19 5:42 pm Comments DCP- Discharge Planning Updated by [id number]: Kristie Burgess on 05/10/19 3:[address] CASE MANAGEMENT CONSULT RECEIVED. PATIENT DISCHARGED FROM [facility] 05/08/19. READMITTED W/ URINARY RETENTTION. REQUIRED AN IN/OUT CATH ENROLLMENT MANAGEMENT MANAGER OF HIS DISCHARGE FOR 1200 CC. HE WAS DISCHARGED TO HOME W/ [facility] FOR PT/OT SERVICES. DISCHARGED AT 1043 05/08. RETURNED TO THE ER AT 1130 05/09/19. CATH AND 1500 CC OF URINE OBTAINED. HIS W/ DEMENTIA IS A PATIENT ON MED II. SHE WAS ADMITTED 05/07/19. THEY HAVE A DAUGHTER WHO IS THE CAREGIVER. CM SPOKE W/ DR DE LEÓN ON HIS ROUNDS. REPORTEDLY THE DAUGHTER HAS SOME SUBSTANCE USE ISSUES. THE DOCTOR FEELS SKILLED CARE WOULD BE MORE APPROPRIATE AT DISCHARGE FOR BOTH PATIENTS. PATIENT HAS NASAL O2 AT 3/L. [place]- [place] PCP- DR [facility]- [facility]. DTR HAS PATIENT'S EYE GLASSES AND TEETH HOME HEALTH- CARE IV APS HAS BEEN INVOLVED WITH THIS FAMILY PREVIOUSLY. CM WILL FOLLOW TO ASSIST W/ DISCHARGE. THIS PATIENT IS KNOWN TO CM FROM PREVIOUS ACUTE CARE ADMIT PRIOR TO REHAB. HE IS ALERT, PLEASANT AND COOPERATIVE. TC TO [facility]. SPOKE WITH SALMA TO ADVISE OF ADMISSION. DCPIA - Discharge Planning Initial Assessment Updated by [id number]: Kristie Burgess on 05/10/19 4:21 pm * Is the patient Alert and Oriented? Yes * How many steps to enter\exit or inside your home? NONE * PCP DR ARRIAZA * Pharmacy [facility] * Preadmission Environment Home with Family * ADLs Partial Dependent * Partial ADLs (Assistance needed) Bathing Dressing Medication Management * Other Equipment CANE AND WALKER * List name and contact numbers for known caregivers / representatives who currently or will assist patient after discharge: HAMZAH GUTIERREZ- KRYSTLE- [phone] * Verbal permission to speak to the caregivers and representatives has been obtained from the patient. No * Community resources currently utilized Home Health * Please name any agencies selected above. CARE IV * Additional services required to return to the preadmission environment? Yes * Can the patient safely return to the preadmission environment? No * Has this patient been hospitalized within the prior 30 days at any hospital? Yes Last DP export: 05/10/19 3:23 p Patient Name: ANGELES VASQUEZ Page [id number] at 1642 All edits/amendments must be made on the electronic document DICTATION DATE: 05/10/191640 METAL SHEET ROLLER OPERATOR: NIGEL 05/10/191640 RPT#: [id number] DC DATE: STATUS: ADM IN [facility] [address] [place] [address] END OF REPORT
[2019-05-10 17:55] VITALS: BP 137/47
--- NOTE | 2019-05-10 18:37 | NUR ---
LETHARGIC, TAKES SEVERAL ATTEMPTS TO AROUSE, IV TO LEFT WRIST, SALINE LOCKED, ON 2LPM VIA NC, BOX CATHETER PRESENT, NON-AMBULATORY, GLASSES AND DENTURES, BED LOWERED AND LOCKED, CALL LIGHT WITHIN REACH. CPOC
[2019-05-10 20:00] VITALS: BP 118/45
[2019-05-11] VITALS: BP 126/48
--- NOTE | 2019-05-11 03:00 | NUR ---
PATIENT UP TO SIDE OF BED CONFUSED STAFF TO BEDSIDE. IV PULLED OUT RESITED TO RIGHT FA LUIS IN PLACE AND PATED . RESTING IN BED WITH NO NEEEDS NOTED OR STATED CALL LIGHT WATER IN REACH ALARN ON BED LOW.
[2019-05-11 04:00] VITALS: BP 134/56
[2019-05-11 05:32] LABS: BASOPHILS 0.4 % (0-2); HEMATOCRIT 30.8 % (42.0-54.0); HEMOGLOBIN 10.1 g/dL (13.5-17.5); IMMATURE GRANULOCYTES 0.6 % (0-5); LYMPHOCYTES 12.8 % (15-50); MCHC 32.8 g/dL (31.0-37.0); MCV 97.5 fL (80.0-100.0); MEAN PLATELET VOLUME 10.5 fL (7.4-10.4); MONOCYTES 12.3 % (2-11); NEUTROPHILS 69.9 % (40-80); PLATELET COUNT 272 10x3/uL (130-400); RBC 3.16 10x6/uL (4.20-6.10); RDW 15.1 % (11.5-14.5); WBC 7.2 10x3/uL (4.8-10.8)
[2019-05-11 05:59] LABS: CALC OSMOLALITY 287 mosm/kg (275-300); CALCIUM 10.1 mg/dL (8.5-10.1); CARBON DIOXIDE 30.7 mmol/L (21.0-32.0); CHLORIDE - SERUM 104 mmol/L (98-107); GLUCOSE 108 mg/dL (74-106); POTASSIUM - SERUM 4.4 mmol/L (3.5-5.1); SODIUM 139 mmol/L (136-145); UREA NITROGEN 39 mg/dL (7-18); eGFR NON AFRICAN AMERICAN 75 mL/min (90-120)
[2019-05-11 06:29] LABS: INR 5.49 (0.85-1.17); PROTIME 49.1 SECONDS (11.6-15.0)
--- NOTE | 2019-05-11 06:57 | NUR ---
LAB CALLED [facility] PT -49.1 AND INR 5.[address] LORENZO HE STATED HE WOULD PUT IN ORDERS THIS AM WHEN ON UNIT.
[2019-05-11 08:16] VITALS: BP 138/55
--- NOTE | 2019-05-11 08:25 | NUR ---
Pt admitted 05/09 from home. He was d/c'd from Rehab a day or so ago. 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 Calmoseptine cream was being used. Will recommend continuing with this. Wound care will monitor.
[2019-05-11 12:18] VITALS: BP 149/55
[2019-05-11 14:19] VITALS: BMI 21.7
[2019-05-11 15:52] VITALS: Ht 185.4 cm; Wt 74.8 kg
[2019-05-11 15:53] VITALS: BP 137/59
--- NOTE | 2019-05-11 17:08 | NUR ---
I have reviewed this patient and I concur with the Shift Assessment completed by the Licensed Practical Nurse today this shift.
--- NOTE | 2019-05-11 19:43 | NUR ---
PATIENT LAYING IN BED, EYES CLOSED, CHEST RISING AND FALLING. NO DISTRESS NOTED.
[2019-05-11 20:00] VITALS: BP 127/52
--- NOTE | 2019-05-12 01:59 | NUR ---
PATIENT LAYING IN BED, EYES CLOSED, CHEST RISING AND FALLING. NO DISTRESS NOTED.
--- NOTE | 2019-05-12 04:33 | NUR ---
I have reviewed this patient and I concur with the Shift Assessment completed by the Licensed Practical Nurse today this shift.
--- NOTE | 2019-05-12 04:51 | NUR ---
BOX EMPTIED-400 OUT.
[2019-05-12 06:33] VITALS: BP 143/58
--- NOTE | 2019-05-12 06:40 | NUR ---
PATIENT LAYING IN BED, EYES CLOSED, CHEST RISING AND FALLING. NO DISTRESS NOTED.
[2019-05-12 06:48] LABS: BASOPHILS 0.3 % (0-2); HEMOGLOBIN 9.4 g/dL (13.5-17.5); IMMATURE GRANULOCYTES 0.5 % (0-5); LYMPHOCYTES 19.3 % (15-50); MCH 31.6 pg (26.0-34.0); MCHC 32.4 g/dL (31.0-37.0); MCV 97.6 fL (80.0-100.0); MONOCYTES 12.8 % (2-11); NEUTROPHILS 61.1 % (40-80); PLATELET COUNT 252 10x3/uL (130-400); RBC 2.97 10x6/uL (4.20-6.10); WBC 5.8 10x3/uL (4.8-10.8)
[2019-05-12 07:07] LABS: PROTIME 20.7 SECONDS (11.6-15.0)
[2019-05-12 07:08] LABS: INR 1.85 (0.85-1.17)
[2019-05-12 07:09] LABS: CALC OSMOLALITY 284 mosm/kg (275-300); CALCIUM 10.1 mg/dL (8.5-10.1); CARBON DIOXIDE 29.8 mmol/L (21.0-32.0); CHLORIDE - SERUM 104 mmol/L (98-107); CREATININE - SERUM 0.8 mg/dL (0.6-1.3); GLUCOSE 104 mg/dL (74-106); POTASSIUM - SERUM 4.4 mmol/L (3.5-5.1); SODIUM 138 mmol/L (136-145); UREA NITROGEN 38 mg/dL (7-18); eGFR NON AFRICAN AMERICAN > 90 mL/min (90-120)
--- NOTE | 2019-05-12 07:37 | NUR ---
RESTING IN BED. ALERT AND ORIENTED X 3. LUNGS CLEAR BILATERALLY IN ALL HUITRON. HEART SOUNDS S1 AND S2 HEARD IN ALL HUITRON. BOWEL SOUNDS ACTIVE X 4. SKIN INTACT WITHOUT REDNESS. BOX IN PLACE DRAINING YELLOW URINE. DENIES PAIN. DENIES NEEDS. BED LOW. SETH ALARM ON. CALL CAZARES AND PERSONAL ITEMS IN REACH. WILL CONTINUE TO MONITOR.
[2019-05-12 08:14] VITALS: BP 148/66
--- NOTE | 2019-05-12 09:40 | NUR ---
NOTIFIED PHARMACY VITAMIN B12 NOT IN PYXIS. NOTIFIED PHARMACY CALMOSEPTINE NOT AVAILBLE.
--- NOTE | 2019-05-12 10:38 | NUR ---
RESTING IN BED. DENIES NEEDS. VITAMIN B12 STILL NOT AVAILABLE. WILL CONTINUE TO MONITOR.
[2019-05-12 11:46] VITALS: BP 146/49
--- NOTE | 2019-05-12 12:30 | NUR ---
PATIENT TAKEN BY ICU NURSE TO ICU TO SEE WHO IS CURRENTLY IN ICU.
--- NOTE | 2019-05-12 15:00 | NUR ---
PATIENT RETURNED TO ROOM.
--- NOTE | 2019-05-12 15:06 | NUR ---
CALLED PHARMACY TO GET COUMADIN. ZIA IN PHARMACY STATED WILL BRING.
--- NOTE | 2019-05-12 16:51 | NUR ---
SLEEPING. WILL CONTINUE TO MONITOR.
[2019-05-12 17:00] VITALS: BP 147/59
[2019-05-12 20:00] VITALS: BP 123/48
--- NOTE | 2019-05-12 20:44 | NUR ---
AWAKE,ALERT WITH SOME CONFUSION NOTED. RESP EVEN AND UNALBORED. O2 @ 2L PER NC ON. NO DISTRESS NOTED. SL TO RFA WITHOUT REDNESS OR EDEMA NOTED. NO COMPLAINTS VOICED. CL IN REACH
--- NOTE | 2019-05-13 03:57 | NUR ---
I have reviewed this patient and I concur with the Shift Assessment completed by the Licensed Practical Nurse today this shift.
[2019-05-13 04:00] VITALS: BP 149/69
[2019-05-13 05:44] LABS: BASOPHILS 0.2 % (0-2); EOSINOPHILS 7.2 % (0-7); HEMATOCRIT 28.7 % (42.0-54.0); HEMOGLOBIN 9.3 g/dL (13.5-17.5); IMMATURE GRANULOCYTES 0.9 % (0-5); LYMPHOCYTES 17.6 % (15-50); MCH 31.7 pg (26.0-34.0); MCHC 32.4 g/dL (31.0-37.0); MEAN PLATELET VOLUME 10.1 fL (7.4-10.4); NEUTROPHILS 63.1 % (40-80); PLATELET COUNT 250 10x3/uL (130-400); RBC 2.93 10x6/uL (4.20-6.10); RDW 14.8 % (11.5-14.5); WBC 5.3 10x3/uL (4.8-10.8)
[2019-05-13 05:57] LABS: INR 1.48 (0.85-1.17); PROTIME 17.3 SECONDS (11.6-15.0)
[2019-05-13 05:59] LABS: CALC OSMOLALITY 283 mosm/kg (275-300); CALCIUM 9.8 mg/dL (8.5-10.1); CARBON DIOXIDE 29.2 mmol/L (21.0-32.0); CHLORIDE - SERUM 103 mmol/L (98-107); CREATININE - SERUM 0.8 mg/dL (0.6-1.3); GLUCOSE 108 mg/dL (74-106); POTASSIUM - SERUM 4.5 mmol/L (3.5-5.1); SODIUM 137 mmol/L (136-145); UREA NITROGEN 38 mg/dL (7-18); eGFR NON AFRICAN AMERICAN > 90 mL/min (90-120)
--- NOTE | 2019-05-13 08:03 | NUR ---
RESTING IN BED. ALERT AND ORIENTED X 3. LUNGS CLEAR BILATERALLY IN ALL HUITRON. HEART SOUNDS S1 AND S2 HEARD IN ALL HUITRON. BOWEL SOUNDS ACTIVE X 4. SKIN INTACT WITHOUT REDNESS. IV TO RFA PATENT WITHOUT REDNESS. O2 IN PLACE AT 2L. FALL PRECAUTIONS IN PLACE. BED LOW. CALL CAZARES AND PERSONAL ITEMS IN REACH. WILL CONTINUE TO MONITOR.
[2019-05-13 09:12] VITALS: BP 162/69
[2019-05-13 12:09] VITALS: BP 140/63
--- NOTE | 2019-05-13 13:25 | NUR ---
RESTING IN BED. DENIES PAIN. DENIES NEEDS. WILL CONTINUE TO MONITOR.
--- NOTE | 2019-05-13 14:28 | NUR ---
NUTRITION F/U CHART REVIEWED. PT VISIT. TOLERATING AHA DIET WITH ENSURE. PO INTAKE VARIES FROM MEAL TO MEAL. SOME SNACKS AT BEDSIDE WELL. RD FOLLOWING
--- NOTE | 2019-05-13 15:36 | NUR ---
RESTING IN BED. DENIES PAIN. DENIES NEEDS. BOX CARE PROVIDED. WILL CONTINUE TO MONITOR.
[2019-05-13 16:24] VITALS: BP 141/53
--- NOTE | 2019-05-13 17:24 | MORECARE ---
CASE MANAGEMENT DISCHARGE SUMMARY PATIENT: ANGELES VASQUEZ UNIT: [id number] ADM DATE: 05/09/19 AGE: 88 : 29 SEX: M ROOM/BED: D.2237 AUTHOR: CASSIUS,DOC PHYSICIAN: REFERRING PHYSICIAN: LEBRON LORENZO MD DATE OF SERVICE: 05/13/19 Discharge Plan Patient Name: ANGELES VASQUEZ Facility: [facility]:[place] : 1930 Planned Disposition: Long-Term Facility Anticipated Discharge Date: Discharge Date: Expected LOS: Initial Reviewer: [id number] Initial Review Date: 05/09/2019 Generated: 05/13/19 6:24 pm Comments DCP- Discharge Planning Updated by [email or web address]: Erin Hameed on 05/13/19 4:[address] I met with the patient and family in the room. The patient is confused. His daughter (Meri) is in the room. His daughter states that I need to call Hamzah Gutierrez (his other daughter) to ask her what skilled facility she would like her father to go to. I called Hamzah and she states she would like him and her mother to go to [facility]. I will send the referral in the morning. CM will continue to follow and assist with discharge planning/needs. Hamzah Arcadio - [facility] - [phone] Meri Peace - [facility] - [phone] DCP- Discharge Planning Updated by [id number]: Kristie Burgess on 05/10/19 3:[address] CASE MANAGEMENT CONSULT RECEIVED. PATIENT DISCHARGED FROM [facility] 05/08/19. READMITTED W/ URINARY RETENTTION. REQUIRED AN IN/OUT CATH CIRCLE CUTTING SAW OPERATOR OF HIS DISCHARGE FOR 1200 CC. HE WAS DISCHARGED TO HOME W/ [facility] FOR PT/OT SERVICES. DISCHARGED AT 1043 05/08. RETURNED TO THE ER AT 1130 05/09/19. CATH AND 1500 CC OF URINE OBTAINED. HIS W/ DEMENTIA IS A PATIENT ON MED II. SHE WAS ADMITTED 05/07/19. THEY HAVE A DAUGHTER WHO IS THE CAREGIVER. CM SPOKE W/ DR DE LEÓN ON HIS ROUNDS. REPORTEDLY THE DAUGHTER HAS SOME SUBSTANCE USE ISSUES. THE DOCTOR FEELS SKILLED CARE WOULD BE MORE APPROPRIATE AT DISCHARGE FOR BOTH PATIENTS. PATIENT HAS NASAL O2 AT 3/L. DME- [facility] WALKER PCP- DR [facility]ZO [facility]- [facility]. DTR HAS PATIENT'S EYE GLASSES AND TEETH HOME HEALTH- CARE IV APS HAS BEEN INVOLVED WITH THIS FAMILY PREVIOUSLY. CM WILL FOLLOW TO ASSIST W/ DISCHARGE. THIS PATIENT IS KNOWN TO CM FROM PREVIOUS ACUTE CARE ADMIT PRIOR TO REHAB. HE IS ALERT, PLEASANT AND COOPERATIVE. TC TO [facility]. SPOKE WITH SALMA TO ADVISE OF ADMISSION. DCPIA - Discharge Planning Initial Assessment Updated by [email or web address]: Kristiegracie Burgess on 05/10/19 4:21 pm * Is the patient Alert and Oriented? Yes * How many steps to enter\exit or inside your home? NONE * PCP DR ARRIAZA * Pharmacy [facility] * Preadmission Environment Home with Family * ADLs Partial Dependent * Partial ADLs (Assistance needed) Bathing Dressing Medication Management * Other Equipment CANE AND WALKER * List name and contact numbers for known caregivers / representatives who currently or will assist patient after discharge: HAMZAH GUTIERREZ- DAUGHTER- [phone] * Verbal permission to speak to the caregivers and representatives has been obtained from the patient. No * Community resources currently utilized Home Health * Please name any agencies selected above. CARE IV * Additional services required to return to the preadmission environment? Yes * Can the patient safely return to the preadmission environment? No * Has this patient been hospitalized within the prior 30 days at any hospital? Yes Coverage Notice Reviewer: [id number] Bouchra Hameed Notice Issued Date-Time: 05/13/2019 17:12 Notice Type: Patient Choice Letter Notice Delivered To: Family Member Relationship to Patient: Daughter On Air Talent Name: Hamzah Gutierrez Delivery Method: PHONE - Phone Collette Days: Prior Verbal Notification: Recipient Understood Notice: Yes Recipient Signature: Med Rec Note Co-signed by Attending: Coverage Notice Comment: RYAN for [facility] DP export: 05/10/19 3:42 p Patient Name: ANGELES VASQUEZ Page [id number] at 1217 All edits/amendments must be made on the electronic document DICTATION DATE: 05/13/191723 SUPERVISOR FINE GRADING: NIGEL 05/13/191723 RPT#: [id number] DC DATE: STATUS: ADM IN [facility] [address] [place] [address] END OF REPORT
--- NOTE | 2019-05-13 17:34 | MORECARE ---
CASE MANAGEMENT DISCHARGE SUMMARY PATIENT: ANGELES VASQUEZ UNIT: [id number] ADM DATE: 05/09/19 AGE: 88 : 29 SEX: M ROOM/BED: D.2237 AUTHOR: CASSIUS,DOC PHYSICIAN: REFERRING PHYSICIAN: LEBRON LORENZO MD DATE OF SERVICE: 05/13/19 Discharge Plan Patient Name: ANGELES VASQUEZ Facility: [facility]:[place] : 1930 Planned Disposition: Fci Facility Anticipated Discharge Date: Discharge Date: Expected LOS: Initial Reviewer: [email or web address] Initial Review Date: 05/09/2019 Generated: 05/13/19 6:33 pm Comments DCP- Discharge Planning Updated by [email or web address]: Erin Hameed on 05/13/19 4:[address] I met with the patient and family in the room. The patient is confused. His daughter (Meri) is in the room. His daughter states that I need to call Hamzah Gutierrez (his other daughter) to ask her what skilled facility she would like her father to go to. I called Hamzah and she states she would like him and her mother to go to [facility]. I will send the referral in the morning. CM will continue to follow and assist with discharge planning/needs. Hamzah Arcadio - [facility] - [phone] Meri Peace - [facility] - [phone] DCP- Discharge Planning Updated by [id number]: Kristie Burgess on 05/10/19 3:[address] CASE MANAGEMENT CONSULT RECEIVED. PATIENT DISCHARGED FROM [facility] 05/08/19. READMITTED W/ URINARY RETENTTION. REQUIRED AN IN/OUT CATH WELLNESS ASSISTANT OF HIS DISCHARGE FOR 1200 CC. HE WAS DISCHARGED TO HOME W/ [facility] FOR PT/OT SERVICES. DISCHARGED AT 1043 05/08. RETURNED TO THE ER AT 1130 05/09/19. CATH AND 1500 CC OF URINE OBTAINED. HIS W/ DEMENTIA IS A PATIENT ON MED II. SHE WAS ADMITTED 05/07/19. THEY HAVE A DAUGHTER WHO IS THE CAREGIVER. CM SPOKE W/ DR DE LEÓN ON HIS ROUNDS. REPORTEDLY THE DAUGHTER HAS SOME SUBSTANCE USE ISSUES. THE DOCTOR FEELS SKILLED CARE WOULD BE MORE APPROPRIATE AT DISCHARGE FOR BOTH PATIENTS. PATIENT HAS NASAL O2 AT 3/L. DME- [facility] PCP- DR [facility]ZO [facility]- [facility]. DTR HAS PATIENT'S EYE GLASSES AND TEETH HOME HEALTH- CARE IV APS HAS BEEN INVOLVED WITH THIS FAMILY PREVIOUSLY. CM WILL FOLLOW TO ASSIST W/ DISCHARGE. THIS PATIENT IS KNOWN TO CM FROM PREVIOUS ACUTE CARE ADMIT PRIOR TO REHAB. HE IS ALERT, PLEASANT AND COOPERATIVE. TC TO CARE [facility] HOME [facility]ALTH. SPOKE WITH SALMA TO ADVISE OF ADMISSION. DCPIA - Discharge Planning Initial Assessment Updated by [email or web address]: Kristie Burgess on 05/10/19 4:21 pm * Is the patient Alert and Oriented? Yes * How many steps to enter\exit or inside your home? NONE * PCP DR ARRIAZA * Pharmacy [facility] * Preadmission Environment Home with Family * ADLs Partial Dependent * Partial ADLs (Assistance needed) Bathing Dressing Medication Management * Other Equipment CANE AND WALKER * List name and contact numbers for known caregivers / representatives who currently or will assist patient after discharge: HAMZAH GUTIERREZ- DAUGHTER- [phone] * Verbal permission to speak to the caregivers and representatives has been obtained from the patient. No * Community resources currently utilized Home Health * Please name any agencies selected above. CARE [facility] * Additional services required to return to the preadmission environment? Yes * Can the patient safely return to the preadmission environment? No * Has this patient been hospitalized within the prior 30 days at any hospital? Yes External Providers External Provider: [facility] Next Contact Date: Service Request Date: Service Type: Resolution: Reviewer: Comments: Coverage Notice Reviewer: [id number] Bouchra Hameed Notice Issued Date-Time: 05/13/2019 17:12 Notice Type: Patient Choice Letter Notice Delivered To: Family Member Relationship to Patient: Daughter Molder Pipe Covering Name: Hamzah Gutierrez Delivery Method: PHONE - Phone Collette Days: Prior Verbal Notification: Recipient Understood Notice: Yes Recipient Signature: Med Rec Note Co-signed by Attending: Coverage Notice Comment: RYAN for [facility] DP export: 05/13/19 4:24 p Patient Name: ANGELES VASQUEZ Page [id number] at 1734 All edits/amendments must be made on the electronic document DICTATION DATE: 05/13/191732 HARDWARE SALES ASSISTANT: NIGEL 05/13/191732 RPT#: [id number] [place] DATE: STATUS: ADM IN [facility] [address] [place] [address] END OF REPORT
[2019-05-13 20:56] VITALS: BP 139/68
--- NOTE | 2019-05-13 21:31 | NUR ---
AWAKE,ALERT WITH MILD CONFUSION NOTED. RESP EVEN AND UNLABORED. NO DISTRESS NOTED. O2 @ 2L PER NC ON. CL IN REACH. BED ALARM ON.
--- NOTE | 2019-05-14 03:36 | NUR ---
I have reviewed this patient and I concur with the Shift Assessment completed by the Licensed Practical Nurse today this shift.
[2019-05-14 05:23] VITALS: BP 140/80
[2019-05-14 06:46] LABS: BASOPHILS 0.5 % (0-2); EOSINOPHILS 4.6 % (0-7); HEMATOCRIT 29.5 % (42.0-54.0); HEMOGLOBIN 9.8 g/dL (13.5-17.5); IMMATURE GRANULOCYTES 0.5 % (0-5); LYMPHOCYTES 20.9 % (15-50); MCH 31.8 pg (26.0-34.0); MCHC 33.2 g/dL (31.0-37.0); MEAN PLATELET VOLUME 10.3 fL (7.4-10.4); NEUTROPHILS 64.5 % (40-80); PLATELET COUNT 262 10x3/uL (130-400); RBC 3.08 10x6/uL (4.20-6.10); RDW 14.5 % (11.5-14.5)
[2019-05-14 06:53] LABS: MCV 95.8 fL (80.0-100.0)
[2019-05-14 07:08] LABS: CALC OSMOLALITY 282 mosm/kg (275-300); CARBON DIOXIDE 28.7 mmol/L (21.0-32.0); CHLORIDE - SERUM 103 mmol/L (98-107); CREATININE - SERUM 0.9 mg/dL (0.6-1.3); GLUCOSE 108 mg/dL (74-106); POTASSIUM - SERUM 4.2 mmol/L (3.5-5.1); SODIUM 137 mmol/L (136-145); UREA NITROGEN 34 mg/dL (7-18); eGFR NON AFRICAN AMERICAN 84 mL/min (90-120)
[2019-05-14 07:24] LABS: INR 1.37 (0.85-1.17); PROTIME 16.3 SECONDS (11.6-15.0)
--- NOTE | 2019-05-14 08:10 | NUR ---
PATIENT RECIEVED FROM PREVIOUS SHIFT RESTING WITH EYES CLOSED. AROUSED EASILY. ORIENTED. NO NEEDS VOICED. CL IN REACH
[2019-05-14 08:55] VITALS: BP 167/57
[2019-05-14 12:24] VITALS: BP 151/67
--- NOTE | 2019-05-14 14:35 | MORECARE ---
CASE MANAGEMENT DISCHARGE SUMMARY PATIENT: ANGELES VASQUEZ UNIT: [id number] ADM DATE: 05/09/19 AGE: 88 : 29 SEX: M ROOM/BED: D.2237 AUTHOR: CASSIUS,DOC PHYSICIAN: REFERRING PHYSICIAN: LEBRON LORENZO MD DATE OF SERVICE: 05/14/19 Discharge Plan Patient Name: ANGELES VASQUEZ Facility: [facility]:[place] : 1930 Planned Disposition: Shelter Facility Anticipated Discharge Date: Discharge Date: Expected LOS: Initial Reviewer: [email or web address] Initial Review Date: 05/09/2019 Generated: 05/14/19 3:34 pm Comments DCP- Discharge Planning Updated by [id number]: Erin Hameed on 05/14/19 1:[address] Received a call from Ami Lopez that patient is accepted to [facility]. I called and spoke to Yeso with Dr. Lorenzo and informed her. She states Dr. Lorenzo cannot come over until after clinic to write orders. I notified Ami and she states they will accept him tomorrow. CM will continue to follow and assist with discharge planning/needs. DCP- Discharge Planning Updated by [id number]: Erin Hameed on 05/13/19 4:[address] I met with the patient and family in the room. The patient is confused. His daughter (Meri) is in the room. His daughter states that I need to call Hamzah Arcadio (his other daughter) to ask her what skilled facility she would like her father to go to. I called Hamzah and she states she would like him and her mother to go to [facility]. I will send the referral in the morning. CM will continue to follow and assist with discharge planning/needs. Hamzah Gutierrez - DTR - [phone] Meri Kobi - R - [phone] DCP- Discharge Planning Updated by [email or web address]: Kristie Burgess on 05/10/19 3:[address] CASE MANAGEMENT CONSULT RECEIVED. PATIENT DISCHARGED FROM [facility] 05/08/19. READMITTED W/ URINARY RETENTTION. REQUIRED AN IN/OUT CATH ELECTROMECHANIC OF HIS DISCHARGE FOR 1200 CC. HE WAS DISCHARGED TO HOME W/ [facility] FOR PT/OT SERVICES. DISCHARGED AT 1043 05/08. RETURNED TO THE ER AT 1130 05/09/19. CATH AND 1500 CC OF URINE OBTAINED. HIS W/ DEMENTIA IS A PATIENT ON MED II. SHE WAS ADMITTED 05/07/19. THEY HAVE A DAUGHTER WHO IS THE CAREGIVER. CM SPOKE W/ DR DE LEÓN ON HIS ROUNDS. REPORTEDLY THE DAUGHTER HAS SOME SUBSTANCE USE ISSUES. THE DOCTOR FEELS SKILLED CARE WOULD BE MORE APPROPRIATE AT DISCHARGE FOR BOTH PATIENTS. PATIENT HAS NASAL O2 AT 3/L. DME- CANE AND WALKER PCP- [facility]- [facility]. DTR HAS PATIENT'S EYE GLASSES AND TEETH HOME HEALTH- CARE IV APS HAS BEEN INVOLVED WITH THIS FAMILY PREVIOUSLY. CM WILL FOLLOW TO ASSIST W/ DISCHARGE. THIS PATIENT IS KNOWN TO CM FROM PREVIOUS ACUTE CARE ADMIT PRIOR TO REHAB. HE IS ALERT, PLEASANT AND COOPERATIVE. TC TO [facility]. SPOKE WITH SALMA TO ADVISE OF ADMISSION. DCPIA - Discharge Planning Initial Assessment Updated by [email or web address]: Kristie Burgess on 05/10/19 4:21 pm * Is the patient Alert and Oriented? Yes * How many steps to enter\exit or inside your home? NONE * PCP DR ARRIAZA * Pharmacy [facility] * Preadmission Environment Home with Family * ADLs Partial Dependent * Partial ADLs (Assistance needed) Bathing Dressing Medication Management * Other Equipment CANE AND WALKER * List name and contact numbers for known caregivers / representatives who currently or will assist patient after discharge: HAMZAH GUTIERREZ- DAUGHTER- [phone] * Verbal permission to speak to the caregivers and representatives has been obtained from the patient. No * Community resources currently utilized Home Health * Please name any agencies selected above. CARE IV * Additional services required to return to the preadmission environment? Yes * Can the patient safely return to the preadmission environment? No * Has this patient been hospitalized within the prior 30 days at any hospital? Yes Coverage Notice Reviewer: [id number] Bouchra Hameed Notice Issued Date-Time: 05/13/2019 17:12 Notice Type: Patient Choice Letter Notice Delivered To: Family Member Relationship to Patient: Daughter Cylinder Machine Operator Pulp Drier Name: Hamzah Gutierrez Delivery Method: PHONE - Phone Collette Days: Prior Verbal Notification: Recipient Understood Notice: Yes Recipient Signature: Med Rec Note Co-signed by Attending: Coverage Notice Comment: RYAN for [facility] Last DP export: 05/13/19 4:34 p Patient Name: ANGELES VASQUEZ Page [id number] at 1435 All edits/amendments must be made on the electronic document DICTATION DATE: 05/14/191433 HEAD HOST/HOSTESS: NIGEL 05/14/191433 RPT#: [id number] DC DATE: STATUS: ADM IN [facility] [address] [place] [address] END OF REPORT
[2019-05-14] MEDS ORDERED: PROSCAR5 MG PO (15:33)
--- NOTE | 2019-05-14 16:04 | NUR ---
OT NOTE: PT COMPLETED BED MOB WITH MOD A. PT COMPLETED SIT TO STAND WITH MOD A. PT COMPLETED HYGIENE TASKS WITH MOD A. THANK YOU, JOSE PHAN
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
[2019-05-14 17:34] VITALS: BP 147/60
[2019-05-14 20:00] VITALS: BP 153/60
--- NOTE | 2019-05-14 20:05 | NUR ---
WATCHING TV QUIELTY. NO DISTRESS NOTED. O2 @ 2L PER NC ON. RESP UNALBORED. SL TO LFA WITHOUT REDNESS OR EDEMA NOTED. CL IN REACH
[2019-05-15] VITALS: BP 135/48
--- NOTE | 2019-05-15 02:12 | NUR ---
I have reviewed this patient and I concur with the Shift Assessment completed by the Licensed Practical Nurse today this shift.
[2019-05-15 04:00] VITALS: BP 155/61
--- NOTE | 2019-05-15 05:21 | NUR ---
I have reviewed this patient and I concur with the Shift Assessment completed by the Licensed Practical Nurse today this shift.
--- NOTE | 2019-05-15 07:00 | NUR ---
PATIENT RECIEVED RESTING IN BED WITH EYES CLOSED. NO DISTRESS. CL IN REACH. ORDER FOR DC TO [facility] LATER THIS AM
[2019-05-15 08:00] VITALS: BP 169/67
[2019-05-15 08:45] LABS: BASOPHILS 0.4 % (0-2); EOSINOPHILS 3.9 % (0-7); HEMATOCRIT 31.2 % (42.0-54.0); HEMOGLOBIN 10.3 g/dL (13.5-17.5); IMMATURE GRANULOCYTES 0.4 % (0-5); LYMPHOCYTES 17.3 % (15-50); MCH 32.1 pg (26.0-34.0); MCV 97.2 fL (80.0-100.0); MEAN PLATELET VOLUME 10.2 fL (7.4-10.4); MONOCYTES 9.5 % (2-11); NEUTROPHILS 68.5 % (40-80); PLATELET COUNT 234 10x3/uL (130-400); RBC 3.21 10x6/uL (4.20-6.10); RDW 14.4 % (11.5-14.5); WBC 7.5 10x3/uL (4.8-10.8)
[2019-05-15 08:59] LABS: INR 1.36 (0.85-1.17); PROTIME 16.2 SECONDS (11.6-15.0)
[2019-05-15 09:30] LABS: CALC OSMOLALITY 283 mosm/kg (275-300); CALCIUM 10.1 mg/dL (8.5-10.1); CARBON DIOXIDE 29.4 mmol/L (21.0-32.0); CHLORIDE - SERUM 103 mmol/L (98-107); CREATININE - SERUM 0.9 mg/dL (0.6-1.3); GLUCOSE 95 mg/dL (74-106); POTASSIUM - SERUM 4.3 mmol/L (3.5-5.1); SODIUM 138 mmol/L (136-145); UREA NITROGEN 36 mg/dL (7-18); eGFR NON AFRICAN AMERICAN 84 mL/min (90-120)
--- NOTE | 2019-05-15 09:50 | NUR ---
REPORT CALLED TO LILIA HORNER AT [facility]. LEG BAG PLACED TO BOX PRIOR TO DISCHARGE. IV REMOVED WITH NO REDNESS OR EDEMA AT SITE, PRESSURE HELD D/T COUMADIN THERAPY. PATIENT TAKEN BY WHEELCHAIR BY [facility] STAFF TO THEIR [facility] FOR TRANSPORT
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
== END 2019-05-15 11:12 | DRG 698 ==
LOC: D.ER 11:30 → D.MS 17:06
PROVIDERS: Emergency Medicine; ADMIT Family Medicine; ATTEND Family Medicine
DX: N13.9 Obstructive and reflux uropathy, unspecified (principal); G93.41 Metabolic encephalopathy; I48.91 Unspecified atrial fibrillation; F32.9 Major depressive disorder, single episode, unspecified; I25.10 Atherosclerotic heart disease of native coronary artery without angina pectoris; Z86.73 Personal history of transient ischemic attack (TIA), and cerebral infarction without residual deficits; R40.2232 Coma scale, best verbal response, inappropriate words, at arrival to emergency department; R40.2352 Coma scale, best motor response, localizes pain, at arrival to emergency department; R40.2132 Coma scale, eyes open, to sound, at arrival to emergency department

== ENCOUNTER 2019-06-06 13:46 | Inpatient (IN) | payer MEDICARE, BC ==
[~2019-06-06] VITALS: Ht 185.4 cm; Wt 73.9 kg
[~2019-06-06 13:46] MED LIST changes: +COUMADIN1 MG PO; +PROSCAR5 MG PO
--- NOTE | 2019-06-06 14:40 | NUR ---
PT MOANS TO PAIN WITH BOX CATHETER INSERTION AND QUICKLY DRIFTS BACK OFF TO SLEEP.
[2019-06-06 14:42] LABS: BASOPHILS 0.1 % (0-2); EOSINOPHILS 0.3 % (0-7); HEMATOCRIT 34.2 % (42.0-54.0); HEMOGLOBIN 11.2 g/dL (13.5-17.5); IMMATURE GRANULOCYTES 0.1 % (0-5); LYMPHOCYTES 13.3 % (15-50); MCH 31.1 pg (26.0-34.0); MCHC 32.7 g/dL (31.0-37.0); MEAN PLATELET VOLUME 10.5 fL (7.4-10.4); NEUTROPHILS 81.2 % (40-80); RDW 13.9 % (11.5-14.5); WBC 6.8 10x3/uL (4.8-10.8)
[2019-06-06 14:43] LABS: PLATELET COUNT 186 10x3/uL (130-400)
[2019-06-06 14:53] LABS: APPEARANCE TURBID (CLEAR); APTT 42.4 SECONDS (22.8-39.4); BILIRUBIN NEGATIVE (NEGATIVE); COLOR RED (YELLOW); GLUCOSE NEGATIVE (NEGATIVE); INR 1.46 (0.85-1.17); KETONE NEGATIVE (NEGATIVE); NITRITE NEGATIVE (NEGATIVE); PROTEIN 3+ mg/dL (NEGATIVE); PROTIME 17.1 SECONDS (11.6-15.0); RED CELLS - URINE 25-50 /hpf (0-5); SPECIFIC GRAVITY 1.005 (1.005-1.020); UROBILINOGEN NORMAL (NORMAL)
[2019-06-06 14:54] LABS: BACTERIA MANY /hpf (NONE SEEN)
[2019-06-06 14:58] LABS: UDS - AMPHET NEGATIVE QUAL (NEGATIVE); UDS - BARB POSITIVE QUAL (NEGATIVE); UDS - BENZO NEGATIVE QUAL (NEGATIVE); UDS - COCAINE NEGATIVE QUAL (NEGATIVE); UDS - OPIATE NEGATIVE QUAL (NEGATIVE); UDS - PCP NEGATIVE QUAL (NEGATIVE); UDS - THC NEGATIVE QUAL (NEGATIVE)
[2019-06-06 15:02] LABS: ALBUMIN 2.9 g/dL (3.4-5.0); ALKALINE PHOSPHATASE 93 U/L (46-116); ALT (SGPT) 19 U/L (10-68); BILIRUBIN - TOTAL 0.46 mg/dL (0.2-1.3); CALC OSMOLALITY 294 mosm/kg (275-300); CALCIUM 9.9 mg/dL (8.5-10.1); CARBON DIOXIDE 26.7 mmol/L (21.0-32.0); CHLORIDE - SERUM 110 mmol/L (98-107); CREATININE - SERUM 1.1 mg/dL (0.6-1.3); GLUCOSE 111 mg/dL (74-106); POTASSIUM - SERUM 3.8 mmol/L (3.5-5.1); PROTEIN - SERUM 6.4 g/dL (6.4-8.2); SODIUM 144 mmol/L (136-145); UREA NITROGEN 33 mg/dL (7-18); eGFR NON AFRICAN AMERICAN 67 mL/min (90-120)
--- NOTE | 2019-06-06 15:06 | NUR ---
ATTEMPTED TO CALL THE [facility] TO OBTAIN A REPORT FROM STAFF. NO ANSWER.
[2019-06-06 15:13] VITALS: BP 123/82
--- NOTE | 2019-06-06 15:13 | NUR ---
PT TO RADIOLOGY AT THIS TIME.
[2019-06-06 15:17] LABS: CKMB 2.5 U/L (0.0-3.6); CREATINE KINASE 234 UL (21-232); MAGNESIUM - SERUM 1.9 mg/dL (1.8-2.4); PRO BNP 8587 pg/mL (0-450); THYROID STIMULATING HORMONE 2.21 uIU/mL (0.36-3.74)
--- NOTE | 2019-06-06 16:40 | NUR ---
PT RECEIVED TO ROOM WITH DARK URINE NOTED VIA CATHETER. STAGE 2 DECUBITUS NOTED TO COCCYX WITH MEPILEX APPLIED. PT REPOSITIONED FOR COMFORT. LUNGS CTA AND ABDOMEN SOFT WITH BS NOTED. PT UNRESPONSIVE TO VERBAL STIMULI WITH PULSE OX 99%
[2019-06-06 16:51] VITALS: BP 162/69; BMI 21.5
--- NOTE | 2019-06-06 19:15 | NUR ---
RECEIVED CARE FROM DAY NURSE. LYING IN BED WITH EYES CLOSED. RESP EVEN AND UNLABORED. CALL LIGHT AT SIDE. IV INFUSING PER ORDER TO LEFT AC.
[2019-06-06 20:17] VITALS: BP 149/54
[2019-06-07 01:42] VITALS: BP 140/50
[2019-06-07 04:00] VITALS: BP 97/67
[2019-06-07 06:25] LABS: BASOPHILS 0.1 % (0-2); EOSINOPHILS 0.2 % (0-7); HEMATOCRIT 31.3 % (42.0-54.0); HEMOGLOBIN 10.3 g/dL (13.5-17.5); IMMATURE GRANULOCYTES 0.3 % (0-5); LYMPHOCYTES 11.2 % (15-50); MCH 31.2 pg (26.0-34.0); MCHC 32.9 g/dL (31.0-37.0); MCV 94.8 fL (80.0-100.0); MONOCYTES 9.3 % (2-11); NEUTROPHILS 78.9 % (40-80); PLATELET COUNT 200 10x3/uL (130-400)
[2019-06-07 06:30] LABS: WBC 8.9 10x3/uL (4.8-10.8)
[2019-06-07 06:34] LABS: INR 1.4 (0.85-1.17); PROTIME 16.6 SECONDS (11.6-15.0)
[2019-06-07 06:39] LABS: ANION GAP 11.4 mmol/L (8-16); CALCIUM 10.2 mg/dL (8.5-10.1); CARBON DIOXIDE 26.3 mmol/L (21.0-32.0); CREATININE - SERUM 1.1 mg/dL (0.6-1.3); POTASSIUM - SERUM 3.7 mmol/L (3.5-5.1)
--- NOTE | 2019-06-07 09:00 | NUR ---
PT AWAKE WITH INTERMITTANT CONFUSION NOTED. IV TO LT. A/C INTACT W/O ANY S/S OF INFECTION OR INFILTRATION. BOX CATH INTACT WITH URINE CLEARER WITH BLOOD TINGED URINE NOTED. CONSUMED 100% BREAKFAST WITH FALL PRECAUTIONS IN PLACE. EDEMA 2+ NOTED TO BLE WITH PEDAL PULSES NOTED.
[2019-06-07 09:17] VITALS: BP 136/58
[2019-06-07 13:07] VITALS: BP 133/56
[2019-06-07 17:00] VITALS: BP 133/63
--- NOTE | 2019-06-07 19:15 | NUR ---
RECEIVED CARE FROM DAY NURSE. LYING IN BED WITH EYES CLOSED. RESP EVEN AND UNLABORED. CALL LIGTH AT SIDE. SETH MAT ARMED. BOX TO GRAVITY. IV INFUSING TO PATENT LEFT AC.
[2019-06-07 20:00] VITALS: BP 156/57
[2019-06-08] VITALS: BP 149/58
--- NOTE | 2019-06-08 03:25 | NUR ---
I have reviewed this patient and I concur with the Shift Assessment completed by the Licensed Practical Nurse today this shift.
[2019-06-08 06:10] LABS: BASOPHILS 0.3 % (0-2); EOSINOPHILS 2.3 % (0-7); HEMATOCRIT 30.6 % (42.0-54.0); IMMATURE GRANULOCYTES 0.2 % (0-5); LYMPHOCYTES 19.5 % (15-50); MCH 30.9 pg (26.0-34.0); MCHC 32.7 g/dL (31.0-37.0); MCV 94.4 fL (80.0-100.0); MEAN PLATELET VOLUME 10.6 fL (7.4-10.4); MONOCYTES 8.7 % (2-11); PLATELET COUNT 203 10x3/uL (130-400); RBC 3.24 10x6/uL (4.20-6.10); RDW 14.1 % (11.5-14.5)
[2019-06-08 06:16] LABS: WBC 6.4 10x3/uL (4.8-10.8)
[2019-06-08 06:29] LABS: CALC OSMOLALITY 291 mosm/kg (275-300); CALCIUM 9.9 mg/dL (8.5-10.1); CARBON DIOXIDE 28.5 mmol/L (21.0-32.0); CHLORIDE - SERUM 108 mmol/L (98-107); GLUCOSE 113 mg/dL (74-106); POTASSIUM - SERUM 3.8 mmol/L (3.5-5.1); SODIUM 141 mmol/L (136-145); UREA NITROGEN 40 mg/dL (7-18); eGFR NON AFRICAN AMERICAN 75 mL/min (90-120)
--- NOTE | 2019-06-08 06:58 | NUR ---
PT IS SLEEPING WITHOUT DISTRESS.CALL LIGHT IN REACH
--- NOTE | 2019-06-08 07:26 | NUR ---
LYING IN BED WITH HOB ELEVATED, EYES CLOSED, AROUSED EASILY TO VOICE. DENIES ANY PAIN AT THIS TIME, SETH ALARM IN PLACE AND WORKING PROPERLY. URINE FLOWING TO CDS VIA GRAVITY. WILL NOTE ANY CHANGE.
[2019-06-08 09:46] VITALS: BP 149/65
[2019-06-08 13:07] VITALS: Ht 185.4 cm; Wt 73.9 kg
[2019-06-08 14:23] VITALS: BP 157/63
[2019-06-08 17:12] VITALS: BP 166/66
--- NOTE | 2019-06-08 18:18 | NUR ---
SITTING UP IN BED ENJOYING EVENING MEAL, HAS BEEN PLEASANTLY CONFUSED AT TIMES, BUT EASILY REDIRECTED. SHOWS NO S/S OF ANY ACUTE DISTRESS. DENIES PAIN AT THIS TIME. BOX CATHETER IS PATENT WITH SEDIMENT NOTED IN URINE TO CDS. WILL NOTE ANY CHANGE.
[2019-06-08 22:03] VITALS: BP 131/65
[2019-06-09 01:49] VITALS: BP 147/68
--- NOTE | 2019-06-09 04:01 | NUR ---
I have reviewed this patient and I concur with the Shift Assessment completed by the Licensed Practical Nurse today this shift.
[2019-06-09 05:53] LABS: BASOPHILS 0.2 % (0-2); EOSINOPHILS 3.2 % (0-7); HEMATOCRIT 33.5 % (42.0-54.0); HEMOGLOBIN 11.1 g/dL (13.5-17.5); IMMATURE GRANULOCYTES 0.3 % (0-5); LYMPHOCYTES 18.1 % (15-50); MCH 31.1 pg (26.0-34.0); MCHC 33.1 g/dL (31.0-37.0); MCV 93.8 fL (80.0-100.0); MEAN PLATELET VOLUME 11.1 fL (7.4-10.4); MONOCYTES 8.3 % (2-11); NEUTROPHILS 69.9 % (40-80); PLATELET COUNT 220 10x3/uL (130-400); RBC 3.57 10x6/uL (4.20-6.10); RDW 13.8 % (11.5-14.5); WBC 6.2 10x3/uL (4.8-10.8)
[2019-06-09 06:11] LABS: CALC OSMOLALITY 285 mosm/kg (275-300); CALCIUM 9.8 mg/dL (8.5-10.1); CARBON DIOXIDE 31.2 mmol/L (21.0-32.0); CHLORIDE - SERUM 104 mmol/L (98-107); GLUCOSE 110 mg/dL (74-106); POTASSIUM - SERUM 3.8 mmol/L (3.5-5.1); SODIUM 138 mmol/L (136-145); UREA NITROGEN 39 mg/dL (7-18); eGFR NON AFRICAN AMERICAN 75 mL/min (90-120)
[2019-06-09 06:28] LABS: INR 1.21 (0.85-1.17); PROTIME 14.8 SECONDS (11.6-15.0)
[2019-06-09 06:31] VITALS: BP 138/66
--- NOTE | 2019-06-09 07:15 | NUR ---
RCVD PT ALERT AND ORIENTED, RESTING IN BED. NO C/O PAIN. NO S/S OF ACUTE DISTRESS NOTED. PT FROM [facility]. BLE EDEMA 2+. IV TO LEFT AC, D5 1/2 NS INFUSING @ 50ML/HR. SITE PATENT WITHOUT REDNESS OR SWELLING. PT DENIES ANYTHING FURTHER AT THIS TIME. CALL LIGHT IN REACH. WILL CONTINUE TO MONITOR.
[2019-06-09 09:32] VITALS: BP 151/66
[2019-06-09 13:01] VITALS: BP 157/52
--- NOTE | 2019-06-09 15:45 | MORECARE ---
CASE MANAGEMENT DISCHARGE SUMMARY PATIENT: ANGELES VASQUEZ UNIT: [id number] ADM DATE: 06/06/19 AGE: 88 : 29 SEX: M ROOM/BED: D.2228 AUTHOR: CASSIUSDOC PHYSICIAN: REFERRING PHYSICIAN: KATIE MELISSA MD DATE OF SERVICE: 06/09/19 Discharge Plan Patient Name: ANGELES VASQUEZ Facility: [facility]:[place] : 1930 Planned Disposition: SNF w Planned Readmission Anticipated Discharge Date: Discharge Date: Expected LOS: Initial Reviewer: [email or web address] Initial Review Date: 06/09/2019 Generated: 06/09/19 4:45 pm Comments DCP- Discharge Planning Updated by [id number]: Erin Hameed on 06/09/19 2:[address] Patient Name: ANGELES VASQUEZ Admission Status: ER Accout number: [id number] Admission Date: 06-06-2019 : 1930 Admission Diagnosis: Attending: KATIE MELISSA Current LOS: 3 Anticipated DC Date: Planned Disposition: SNF w Planned Readmission Primary Insurance: MEDICARE A & B Discharge Planning Comments: CM went to patient room to discuss discharge planning, he is asleep. I called his daughter, Jocy, and the plan is for him to return to [facility] on discharge. I messaged Ami Lopez and updated clinical faxed. CM will continue to follow and assist with discharge planning/needs. Assembler Molded Frames: Erin Hameed DCPIA - Discharge Planning Initial Assessment Updated by [email or web address]: Erin Hameed on 06/09/19 3:39 pm * Is the patient Alert and Oriented? No * How many steps to enter\exit or inside your home? 0/0 * PCP Dr. Cox * Pharmacy [facility] * Preadmission Environment Residential Facility * Facility Name [facility] * ADLs Total Dependent * Equipment Cane Walker * List name and contact numbers for known caregivers / representatives who currently or will assist patient after discharge: [facility]vin [facility] - [phone] * Community resources currently utilized None * Additional services required to return to the preadmission environment? No * Can the patient safely return to the preadmission environment? Yes * Has this patient been hospitalized within the prior 30 days at any hospital? Yes Patient Name: ANGELES VASQUEZ Page 14577 at 1545 All edits/amendments must be made on the electronic document DICTATION DATE: 06/09/191543 TECHNICAL SERVICES SPECIALIST: NIGEL 06/09/191543 RPT#: [id number] DC DATE: STATUS: ADM IN [facility] [address] [place] [address] END OF REPORT
--- NOTE | 2019-06-09 16:01 | MORECARE ---
CASE MANAGEMENT DISCHARGE SUMMARY PATIENT: ANGELES VASQUEZ UNIT: [id number] ADM DATE: 06/06/19 AGE: 88 : 29 SEX: M ROOM/BED: D.2228 AUTHOR: CASSIUSDOC PHYSICIAN: REFERRING PHYSICIAN: KATIE MELISSA MD DATE OF SERVICE: 06/09/19 Discharge Plan Patient Name: ANGELES VASQUEZ Facility: [facility]:[place] : 1930 Planned Disposition: SNF w Planned Readmission Anticipated Discharge Date: Discharge Date: Expected LOS: Initial Reviewer: [email or web address] Initial Review Date: 06/09/2019 Generated: 06/09/19 5:01 pm Comments DCP- Discharge Planning Updated by [email or web address]: Erin Hameed on 06/09/19 2:[address] Patient Name: ANGELES VASQUEZ Admission Status: ER Accout number: [id number] Admission Date: 06-06-2019 : 1930 Admission Diagnosis: Attending: KATIE MELISSA Current LOS: 3 Anticipated DC Date: Planned Disposition: SNF w Planned Readmission Primary Insurance: MEDICARE A & B Discharge Planning Comments: CM went to patient room to discuss discharge planning, he is asleep. I called his daughter, Jocy, and the plan is for him to return to [facility] on discharge. I messaged Ami Lopez and updated clinical faxed. CM will continue to follow and assist with discharge planning/needs. Viscose Cellar Worker: Erin Hameed DCPIA - Discharge Planning Initial Assessment Updated by [email or web address]: Erin Hameed on 06/09/19 3:39 pm * Is the patient Alert and Oriented? No * How many steps to enter\exit or inside your home? 0/0 * PCP Dr. Cox * Pharmacy [facility] * Preadmission Environment Shelter Facility * Facility Name [facility] * ADLs Total Dependent * Equipment Cane Walker * List name and contact numbers for known caregivers / representatives who currently or will assist patient after discharge: Jocy Ervin [facility] - [phone] * Community resources currently utilized None * Additional services required to return to the preadmission environment? No * Can the patient safely return to the preadmission environment? Yes * Has this patient been hospitalized within the prior 30 days at any hospital? Yes External Providers External Provider: [facility] Next Contact Date: Service Request Date: Service Type: Resolution: Reviewer: Comments: Coverage Notice Reviewer: [id number] Bouchra Erinkike Hameed Notice Issued Date-Time: 06/09/2019 15:55 Notice Type: Patient Choice Letter Notice Delivered To: Family Member Relationship to Patient: Daughter Engineer Technical Staff Name: Jocy Ervin Delivery Method: PHONE - Phone Collette Days: Prior Verbal Notification: Recipient Understood Notice: Yes Recipient Signature: Med Rec Note Co-signed by Attending: Coverage Notice Comment: Telephone to daughter, Jocy and RYAN for [facility] DP export: 06/09/19 2:45 p Patient Name: ANGELES VASQUEZ Page 62042 at 1601 All edits/amendments must be made on the electronic document DICTATION DATE: 06/09/191600 OPTOMETRIST ASSISTANT: NIGEL 06/09/19 1601 RPT#: [id number] DC DATE: STATUS: ADM IN [facility] [address] [place] [address] END OF REPORT
--- NOTE | 2019-06-09 18:38 | NUR ---
PT ALERT AND ORIENTED, EATING SUPPER. DENIES ANY NEEDS AT THIS TIME. CALL LIGHT IN REACH. WILL CONTINUE TO MONITOR.
[2019-06-09 18:45] VITALS: BP 151/73
--- NOTE | 2019-06-09 19:20 | NUR ---
EVENING ROUNDS MADE. PATIENT IS A/OX2, IS PLEASANTLY CONFUSED. PATIENT HAS IV TO LT AC WITH D5 1/2 NS RUNNING @50ML/HR, IV IS PATENT, DRSG IS C/D/I. PATIENT HAS BOX DRAINING STRAW COLORED URINE BY GRAVITY TO LT SIDE OF BED. PATIENT HAS BLE EDEMA AND STAGE 2 ULCER TO COCCYX, DRSG IS C/D/I. BREATHING IS EVEN AND UNLABORED. PATIENT DENIES FURTHER NEEDS AT THIS TIME. WILL CPOC. CL IN REACH, BED LOCKED AND IN LOWEST POSITION. FALL PRECAUTIONS FOLLOWED. WILL CTM.
[2019-06-09 20:00] VITALS: BP 156/68
[2019-06-10] VITALS: BP 169/75
--- NOTE | 2019-06-10 00:33 | NUR ---
PATIENT IN BED, EYES CLOSED, APPEARS TO BE SLEEPING. NO S/SX OF DISTRESS NOTED. CL IN REACH, BED LOCKED AND IN LOWEST POSITION. WILL CTM.
--- NOTE | 2019-06-10 01:11 | NUR ---
PATIENT PULLED OUT IV. IV RESITED TO LT FA. WITH 22G X1 ATTEMPT. FLUIDS RESTARTED PER ORDERS. PATIENT CL IN REACH, BED LOCKED AND IN LOWEST POSITION. WILL CTM.
[2019-06-10 04:00] VITALS: BP 167/76
[2019-06-10 07:02] LABS: BASOPHILS 0.3 % (0-2); EOSINOPHILS 3.6 % (0-7); HEMOGLOBIN 11.2 g/dL (13.5-17.5); IMMATURE GRANULOCYTES 0.3 % (0-5); LYMPHOCYTES 23.8 % (15-50); MCH 30.9 pg (26.0-34.0); MCHC 32.9 g/dL (31.0-37.0); MCV 93.7 fL (80.0-100.0); MEAN PLATELET VOLUME 11.2 fL (7.4-10.4); MONOCYTES 9.7 % (2-11); NEUTROPHILS 62.3 % (40-80); PLATELET COUNT 242 10x3/uL (130-400); RBC 3.63 10x6/uL (4.20-6.10); RDW 13.8 % (11.5-14.5); WBC 5.9 10x3/uL (4.8-10.8)
[2019-06-10 07:06] LABS: INR 1.21 (0.85-1.17); PROTIME 14.8 SECONDS (11.6-15.0)
[2019-06-10 07:25] LABS: CALC OSMOLALITY 284 mosm/kg (275-300); CALCIUM 9.8 mg/dL (8.5-10.1); CARBON DIOXIDE 28.4 mmol/L (21.0-32.0); CHLORIDE - SERUM 103 mmol/L (98-107); GLUCOSE 108 mg/dL (74-106); SODIUM 138 mmol/L (136-145); UREA NITROGEN 34 mg/dL (7-18); eGFR NON AFRICAN AMERICAN 75 mL/min (90-120)
[2019-06-10 07:26] LABS: POTASSIUM - SERUM 4.5 mmol/L (3.5-5.1)
--- NOTE | 2019-06-10 07:28 | NUR ---
ALERT AND ORIENTED TO SELF. LUNGS CLEAR BILATERALLY IN ALL HUITRON. HEART SOUNDS S1 AND S2 HEARD IN ALL HUITRON. BOWEL SOUNDS ACTIVE X 2. STAGE 2 PU NOTED TO COCCYX COVERED WITH MEPILEX. IV TO LFA PATENT WITHOUT REDNESS. DENIES PAIN. DENIES NEEDS. BED LOW. FALL PRECAUTIONS IN PLACE. CALL CAZARES AND PERSONAL ITEMS IN REACH. WILL CONTINUE TO MONITOR.
[2019-06-10] MEDS ORDERED: OMNICEF300 MG PO (08:41)
[2019-06-10 09:02] VITALS: BP 156/69
--- NOTE | 2019-06-10 10:12 | NUR ---
RESTING IN BED. DENIES PAIN. DENIES NEEDS. WILL CONTINUE TO MONITOR.
--- NOTE | 2019-06-10 11:50 | MORECARE ---
CASE MANAGEMENT DISCHARGE SUMMARY PATIENT: ANGELES VASQUEZ UNIT: [id number] ADM DATE: 06/06/19 AGE: 88 : 29 SEX: M ROOM/BED: D.2228 AUTHOR: DILIA HAMMONDS PHYSICIAN: REFERRING PHYSICIAN: KATIE MELISSA MD DATE OF SERVICE: 06/10/19 Discharge Plan Patient Name: ANGELES VASQUEZ Facility: [facility]:[place] : 1930 Planned Disposition: SNF w Planned Readmission Anticipated Discharge Date: Discharge Date: Expected LOS: Initial Reviewer: [id number] Initial Review Date: 06/09/2019 Generated: 06/10/19 12:49 pm Comments DCP- Discharge Planning Updated by [id number]: Erin Hameed on 06/10/19 10:[address] Patient Name: ANGELES VASQUEZ Encounter No: [id number] : 1930 Primary Insurance: MEDICARE A & B Anticipated DC Date: Planned Disposition: SNF w Planned Readmission External Planned Provider: : DCP follow-up note: Received discharge order. I have faxed discharge orders/MAR/med rec to [facility]. He will be discharging to a skilled bed. caitlyn Kan for [facility], states they will pick him up at 1. I called patient's daughter,, Jocy, and she is in agreement with discharge plan. No changes to plan. Case management will follow and assist as needed. Erin Hameed DCP- Discharge Planning Updated by [id number]: Erin Hameed on 06/09/19 2:[address] Patient Name: ANGELES VASQUEZ Admission Status: ER Accout number: [id number] Admission Date: 06-06-2019 : 1930 Admission Diagnosis: Attending: KATIE MELISSA Current LOS: 3 Anticipated DC Date: Planned Disposition: SNF w Planned Readmission Primary Insurance: MEDICARE A & B Discharge Planning Comments: CM went to patient room to discuss discharge planning, he is asleep. I called his daughter, Jocy, and the plan is for him to return to [facility] skilled on discharge. I messaged Ami Lopez and updated clinical faxed. CM will continue to follow and assist with discharge planning/needs. Supervisor Records Change: Erin Hameed DCPIA - Discharge Planning Initial Assessment Updated by [email or web address]: Erin Hameed on 06/09/19 3:39 pm * Is the patient Alert and Oriented? No * How many steps to enter\exit or inside your home? 0/0 * PCP Dr. Cox * Pharmacy [facility] * Preadmission Environment Detention Facility * Facility Name [facility] * ADLs Total Dependent * Equipment Cane Walker * List name and contact numbers for known caregivers / representatives who currently or will assist patient after discharge: Jocy Ervin - DTR - [phone] * Community resources currently utilized None * Additional services required to return to the preadmission environment? No * Can the patient safely return to the preadmission environment? Yes * Has this patient been hospitalized within the prior 30 days at any hospital? Yes Coverage Notice Reviewer: [id number] Bouchra Hameed Notice Issued Date-Time: 06/09/2019 15:55 Notice Type: Patient Choice Letter Notice Delivered To: Family Member Relationship to Patient: Daughter Booking Manager Name: Jocy Ervin Delivery Method: PHONE - Phone Collette Days: Prior Verbal Notification: Recipient Understood Notice: Yes Recipient Signature: Med Rec Note Co-signed by Attending: Coverage Notice Comment: Telephone to daughter, Jocy and RYAN for [facility] Reviewer: [id number] Bouchra Hameed Notice Issued Date-Time: 06/10/2019 11:42 Notice Type: IM Discharge Notice Notice Delivered To: Family Member Relationship to Patient: Daughter Booking Manager Name: Jocy Ervin Delivery Method: PHONE - Phone Collette Days: Prior Verbal Notification: Recipient Understood Notice: Yes Recipient Signature: Med Rec Note Co-signed by Attending: Coverage Notice Comment: Explained IMM, left at bedside, copy in MR Last DP export: 06/09/19 3:01 p Patient Name: ANGELES VASQUEZ Page [id number] at 1150 All edits/amendments must be made on the electronic document DICTATION DATE: 06/10/19 1149 KITCHEN HELPER: NIGEL 06/10/19 1149 RPT#: [id number] DC DATE: STATUS: ADM IN [facility] [address] [place] [address] END OF REPORT
--- NOTE | 2019-06-10 12:16 | NUR ---
REPORT CALLED TO RN AT THE [facility]. DENIES FURTHER QUESTIONS. PATIENT UNABLE TO SIGN DC PAPERWORK D/T CONFUSION. WITNESSED BY SECOND RN. IV REMOVED FROM [facility] WITH TIP INTACT. BRADFORDS TO FINANCIAL COACH AT 1300.
--- NOTE | 2019-06-10 13:31 | NUR ---
PATIENT DISCHARGED TO [facility] WITH ALL BELONGINGS.
--- NOTE | 2019-06-12 15:45 | MORECARE ---
CASE MANAGEMENT DISCHARGE SUMMARY PATIENT: ANGELES VASQUEZ UNIT: [id number] ADM DATE: 06/06/19 AGE: 88 : 29 SEX: M ROOM/BED: D.2228 AUTHOR: DILIA HAMMONDS PHYSICIAN: REFERRING PHYSICIAN: KATIE MELISSA MD DATE OF SERVICE: 06/12/19 Discharge Plan Patient Name: ANGELES VASQUEZ Facility: [facility]:[place] : 1930 Planned Disposition: SNF w Planned Readmission Anticipated Discharge Date: Discharge Date: 06/10/2019 Expected LOS: Initial Reviewer: [id number] Initial Review Date: 06/09/2019 Generated: 06/12/19 4:45 pm Comments DCP- Discharge Planning Updated by [email or web address]: Erin Hameed on 06/10/19 10:[address] Patient Name: ANGELES VASQUEZ Encounter No: [id number] : 1930 Primary Insurance: MEDICARE A & B Anticipated DC Date: Planned Disposition: SNF w Planned Readmission External Planned Provider: : DCP follow-up note: Received discharge order. I have faxed discharge orders/MAR/med rec to [facility]. He will be discharging to a skilled bed. caitlyn Kan for the [facility], states they will pick him up at 1. I called patient's daughter,, Jocy, and she is in agreement with discharge plan. No changes to plan. Case management will follow and assist as needed. Erin Hameed DCP- Discharge Planning Updated by [email or web address]: Erin Hameed on 06/09/19 2:[address] Patient Name: ANGELES VASQUEZ Admission Status: ER Accout number: [id number] Admission Date: 06-06-2019 : 1930 Admission Diagnosis: Attending: KATIE MELISSA Current LOS: 3 Anticipated DC Date: Planned Disposition: SNF w Planned Readmission Primary Insurance: MEDICARE A & B Discharge Planning Comments: CM went to patient room to discuss discharge planning, he is asleep. I called his daughter, Jocy, and the plan is for him to return to [facility] skilled on discharge. I messaged Ami Lopez and updated clinical faxed. CM will continue to follow and assist with discharge planning/needs. Inspector Scales: Erin Hameed DCPIA - Discharge Planning Initial Assessment Updated by JES: Erin Hameed on 06/09/19 3:39 pm * Is the patient Alert and Oriented? No * How many steps to enter\exit or inside your home? 0/0 * PCP Dr. Cox * Pharmacy [facility] * Preadmission Environment Longterm Facility * Facility Name [facility] * ADLs Total Dependent * Equipment Cane Walker * List name and contact numbers for known caregivers / representatives who currently or will assist patient after discharge: Jocy Ervin - DTR - [phone] * Community resources currently utilized None * Additional services required to return to the preadmission environment? No * Can the patient safely return to the preadmission environment? Yes * Has this patient been hospitalized within the prior 30 days at any hospital? Yes Coverage Notice Reviewer: [id number] Bouchra Hameed Notice Issued Date-Time: 06/09/2019 15:55 Notice Type: Patient Choice Letter Notice Delivered To: Family Member Relationship to Patient: Daughter Tree Pruner Name: Jocy Ervin Delivery Method: PHONE - Phone Collette Days: Prior Verbal Notification: Recipient Understood Notice: Yes Recipient Signature: Med Rec Note Co-signed by Attending: Coverage Notice Comment: Telephone to daughter, Jocy and RYAN for [facility] Reviewer: [id number] Bouchra Hameed Notice Issued Date-Time: 06/10/2019 11:42 Notice Type: IM Discharge Notice Notice Delivered To: Family Member Relationship to Patient: Daughter Tree Pruner Name: Jocy Ervin Delivery Method: PHONE - Phone Collette Days: Prior Verbal Notification: Recipient Understood Notice: Yes Recipient Signature: Med Rec Note Co-signed by Attending: Coverage Notice Comment: Explained IMM, left at bedside, copy in MR Last DP export: 06/10/19 10:50 a Patient Name: ANGELES VASQUEZ Page 72754 at 1548 All edits/amendments must be made on the electronic document DICTATION DATE: 06/12/19 1544 BENDER HELPER: NIGEL 06/12/19 1543 RPT#: [id number] DC DATE:06/10/19 STATUS: DIS IN [facility] [address] [place] [address] END OF REPORT
[2019-06-22] MEDS ORDERED: COUMADIN4 MG PO (14:15)
[2019-06-22] MEDS ORDERED: MULTI-DAY VITAM1 TAB PO (14:16)
[2019-06-22] MEDS ORDERED: VITAMIN C500 M1 PO (14:16)
[2019-06-22] MEDS ORDERED: HYDROCODON-ACE1 EAC7 PO (14:17)
[2019-06-22] MEDS ORDERED: MYSOLINE250 MG PO (14:21)
[2019-07-20] MEDS ORDERED: COUMADIN5 MG PO (14:03)
[2019-07-20] MEDS ORDERED: ACIDOPHILUS-PE1 EACH PO (14:03)
== END 2019-06-10 13:31 | DRG 689 ==
LOC: D.ER 13:46 → D.MS 15:20
PROVIDERS: Emergency Medicine; ADMIT Legal Medicine; ATTEND Legal Medicine
DX: N39.0 Urinary tract infection, site not specified (principal); J81.0 Acute pulmonary edema; N17.9 Acute kidney failure, unspecified; I48.91 Unspecified atrial fibrillation; N40.1 Benign prostatic hyperplasia with lower urinary tract symptoms; R33.8 Other retention of urine; D64.9 Anemia, unspecified

== ENCOUNTER 2019-06-13 15:55 | Emergency (ER) | payer MEDICARE, BC ==
[~2019-06-13] VITALS: Ht 185.4 cm; Wt 59.1 kg
[~2019-06-13 15:55] MED LIST changes: +OMNICEF300 MG PO
[2019-06-13 15:57] VITALS: Ht 185.4 cm; Wt 59.1 kg
[2019-06-13 17:18] LABS: BASOPHILS 0.3 % (0-2); EOSINOPHILS 2.4 % (0-7); HEMATOCRIT 36.6 % (42.0-54.0); IMMATURE GRANULOCYTES 0.5 % (0-5); LYMPHOCYTES 15.7 % (15-50); MCH 30.8 pg (26.0-34.0); MCHC 32.8 g/dL (31.0-37.0); MCV 93.8 fL (80.0-100.0); MEAN PLATELET VOLUME 10.8 fL (7.4-10.4); MONOCYTES 7.7 % (2-11); NEUTROPHILS 73.4 % (40-80); PLATELET COUNT 249 10x3/uL (130-400); RDW 13.9 % (11.5-14.5); WBC 8.8 10x3/uL (4.8-10.8)
[2019-06-13 17:21] LABS: APPEARANCE HAZY (CLEAR); BILIRUBIN NEGATIVE (NEGATIVE); COLOR YELLOW (YELLOW); GLUCOSE NEGATIVE (NEGATIVE); KETONE NEGATIVE (NEGATIVE); NITRITE NEGATIVE (NEGATIVE); PROTEIN NEGATIVE (NEGATIVE); SPECIFIC GRAVITY 1.015 (1.005-1.020); UROBILINOGEN NORMAL (NORMAL); WHITE CELLS - URINE NSEEN /hpf (0-5)
[2019-06-13 17:34] LABS: ALBUMIN 2.8 g/dL (3.4-5.0); ALKALINE PHOSPHATASE 109 U/L (46-116); ALT (SGPT) 18 U/L (10-68); BILIRUBIN - TOTAL 0.42 mg/dL (0.2-1.3); CALC OSMOLALITY 285 mosm/kg (275-300); CALCIUM 10.6 mg/dL (8.5-10.1); CARBON DIOXIDE 29.6 mmol/L (21.0-32.0); CHLORIDE - SERUM 105 mmol/L (98-107); GLUCOSE 113 mg/dL (74-106); POTASSIUM - SERUM 4.3 mmol/L (3.5-5.1); SODIUM 140 mmol/L (136-145); UREA NITROGEN 30 mg/dL (7-18); eGFR NON AFRICAN AMERICAN 75 mL/min (90-120)
[2019-06-13 21:20] VITALS: BP 119/77
[2019-06-22] MEDS ORDERED: COUMADIN4 MG PO (14:15)
[2019-06-22] MEDS ORDERED: MULTI-DAY VITAM1 TAB PO (14:16)
[2019-06-22] MEDS ORDERED: VITAMIN C500 M1 PO (14:16)
[2019-06-22] MEDS ORDERED: HYDROCODON-ACE1 EAC7 PO (14:17)
[2019-06-22] MEDS ORDERED: MYSOLINE250 MG PO (14:21)
== END 2019-06-13 21:20 | disposition home or self-care (01) ==
LOC: D.ER 15:55
PROVIDERS: Emergency Medicine
DX: R52 Pain, unspecified (principal); W19.XXXA Unspecified fall, initial encounter; I48.91 Unspecified atrial fibrillation; R41.0 Disorientation, unspecified

== ENCOUNTER 2019-07-09 21:13 | Emergency (ER) | payer MEDICARE, BC ==
[~2019-07-09] VITALS: Ht 185.4 cm; Wt 59.1 kg
[~2019-07-09 21:13] MED LIST changes: +COUMADIN4 MG PO; +MULTI-DAY VITAM1 TAB PO; +VITAMIN C500 M1 PO
[2019-07-09 21:15] VITALS: Ht 185.4 cm; Wt 59.1 kg
[2019-07-09 22:42] VITALS: BP 145/60
[2019-07-20] MEDS ORDERED: ACIDOPHILUS-PE1 EACH PO (14:03)
[2019-07-20] MEDS ORDERED: COUMADIN5 MG PO (14:03)
== END 2019-07-09 22:30 ==
LOC: D.ER 21:13
DX: S39.92XA Unspecified injury of lower back, initial encounter (principal); W19.XXXA Unspecified fall, initial encounter; I48.91 Unspecified atrial fibrillation

== ENCOUNTER 2019-07-21 06:24 | Day surgery (SDC) | payer MEDICARE, BC ==
[~2019-07-21] VITALS: Ht 185.4 cm; Wt 70.8 kg
[~2019-07-21 06:24] MED LIST changes: +ACIDOPHILUS-PE1 EACH PO; +COUMADIN5 MG PO
[2019-07-21 07:02] LABS: APTT 36.6 SECONDS (22.8-39.4); INR 1.21 (0.85-1.17); PROTIME 14.8 SECONDS (11.6-15.0)
[2019-07-21 07:04] LABS: CALC OSMOLALITY 284 mosm/kg (275-300); CALCIUM 10.1 mg/dL (8.5-10.1); CARBON DIOXIDE 28.8 mmol/L (21.0-32.0); CHLORIDE - SERUM 105 mmol/L (98-107); GLUCOSE 103 mg/dL (74-106); SODIUM 141 mmol/L (136-145); UREA NITROGEN 23 mg/dL (7-18); eGFR NON AFRICAN AMERICAN 75 mL/min (90-120)
[2019-07-21 07:06] LABS: BASOPHILS 0.6 % (0-2); EOSINOPHILS 4.9 % (0-7); HEMATOCRIT 33.9 % (42.0-54.0); HEMOGLOBIN 11.2 g/dL (13.5-17.5); IMMATURE GRANULOCYTES 0.2 % (0-5); LYMPHOCYTES 25.3 % (15-50); MCH 30.1 pg (26.0-34.0); MCV 91.1 fL (80.0-100.0); MEAN PLATELET VOLUME 9.8 fL (7.4-10.4); MONOCYTES 10.2 % (2-11); NEUTROPHILS 58.8 % (40-80); PLATELET COUNT 271 10x3/uL (130-400); RBC 3.72 10x6/uL (4.20-6.10); RDW 16.2 % (11.5-14.5); WBC 5.1 10x3/uL (4.8-10.8)
[2019-07-21 08:10] VITALS: BP 157/65; Ht 185.4 cm; Wt 70.8 kg
--- NOTE | 2019-07-21 11:09 | OP ---
PATIENT NAME: ANGELES VASQUEZ MEDICAL RECORD: [id number] :[birth year] [facility] AD[facility] DATE: SURGEON: ZAHEER RIVERS MD DATE OF OPERATION: 07/21/2019 SURGEON: Zaheer Rivers MD DIAGNOSES: Urinary retention, prostatic obstruction, elevated PSA 8.09. PROCEDURES: Cystoscopy, Zhao catheter insertion. 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 The right lobe passes the midline and touches the left lateral lobe. There are single ureteral orifices bilaterally. There are no bladder tumors seen. Bladder stone debris was noted. The prostate biopsy was not done as the rectum is full of stool. BLOOD LOSS: None. CLINICAL HISTORY: This is an 88-year-old male, who has dementia. His history is very unclear. He has an indwelling Zhao catheter for urinary retention. He has had 2 previous prostate biopsies, which were benign. He has a baseline PSA of 8.09 and I wanted to obtain a prostate biopsy before performing a procedure to relieve his urinary obstruction. He also has a history of seizure disorder. He is on Plavix and we obtained cardiac permission to hold his Plavix and Pradaxa. He is not allergic to any medications. He was given Ancef director river restoration to the OR. DESCRIPTION OF PROCEDURE: The patient was given IV sedation. He was then placed into lithotomy position and prepped and draped. A 17-Ghanaian cystoscope was used for visualization. Findings are as outlined above. The obstruction was primarily from the right lateral lobe of the prostate. The bladder was then emptied through the cystoscope sheath and the scope was removed. I then introduced the transrectal ultrasound probe. I could not see an image of the prostate at all. When I removed the probe, it became evident as to the reason why. The probe was covered with feces. Since the rectum was packed with stool, I decided it would be unsafe to try to biopsy the prostate now. Therefore, this part of the procedure was not done. I put on new sterile gloves and introduced a 16-Ghanaian Zhao catheter and put it to bag drainage. I will see the patient in 2 weeks' time to arrange the UroLift procedure on him. TRANSINT:[id number] Voice Confirmation ID: [id number] DOCUMENT ID: [id number] ZAHEER RIVERS MD at 1109 CC: [id number] DICTATION DATE: 07/21/19 0933 TANK BUILDER SUPERVISOR: 07/21/19 1033 REG [facility] [address] [id number]
--- NOTE | 2019-07-21 12:31 | NUR ---
PT LEAVING OPS SURGERY AT THIS TIME VIA WC, WITH REHAB LIAISON. NAD NOTED.
--- NOTE | 2019-07-21 12:53 | NUR ---
1121 IV DC'D. CATHETER TIP INTACT. NO BLEEDING AT SITE. BANDAID APPLIED.
--- NOTE | 2019-07-21 12:59 | NUR ---
1140 PT HAS MET DISCHARGE CRITERIA. WAITING FOR GROUP HOME TRANSPORTER TO ARRIVE. PT WATCHING TV.
--- NOTE | 2019-07-21 13:00 | NUR ---
1206 PT UP TO BSC WITH ASSISTANCE. PT HAD LARGE FORMED BOWEL MOVEMENT.
== END 2019-07-21 12:30 | disposition home or self-care (01) ==
LOC: D.OPS 06:24 → D.PAN 10:00 → D.OPS 10:20
PROVIDERS: Anesthesiology; ATTEND Urology
DX: N40.1 Benign prostatic hyperplasia with lower urinary tract symptoms (principal); N13.8 Other obstructive and reflux uropathy; R33.8 Other retention of urine; F03.90 Unspecified dementia, unspecified severity, without behavioral disturbance, psychotic disturbance, mood disturbance, and anxiety; G40.909 Epilepsy, unspecified, not intractable, without status epilepticus; Z79.02 Long term (current) use of antithrombotics/antiplatelets; Z79.899 Other long term (current) drug therapy